=== PATIENT | male | born 1970 | race African-American/Black ===

== ENCOUNTER 2017-05-14 03:47 | Emergency (ER) | payer MEDICAID ==
[~2017-05-14 03:47] MED LIST: ACET-2267 PO; AMLO10TA2 PO; AMLO10TA4 PO; LISI20TA PO; LORA10CA PO; LORA10TA7 PO; MAG355OR55 PO; MELO15TA14 PO; METO25TA2 PO; METO50TA2 PO; SIMV20TA3 PO; SIMV40TA2 PO; SMT80CT PO
--- OUTSIDE RECORDS SUMMARY | 2017-05-14 03:53 | XMS REPORT | Clinical Summary ---
Author Author [facility] Organization [facility] Address Unknown Phone Unavailable Care Team Providers Care Compensation Advisor Name Role Phone PCP Unavailable Source Comments Some departments are not documenting in the electronic medical record. If you do not see the information that you expected, contact Release of Information in the Health Information Management department at [phone] for further assistance in locating additional records.[facility] Allergies Not on File Current Medications Not on file Active Problems Not on file Social History Tobacco Use Types Packs/Day Years Used Date Never Assessed Sex Assigned at Date Recorded Not on file Last Filed Vital Signs Not on file Plan of Treatment Health Maintenance Due Date Last Done Comments PHYSICAL (COMPREHENSIVE) 1978 EXAM PERTUSSIS VACCINE 1982 TETANUS VACCINE 01/24/1988 INFLUENZA VACCINE 05/21/2017 Results Not on filefrom Last 3 Months
--- OUTSIDE RECORDS SUMMARY | 2017-05-14 03:53 | XMS REPORT ---
Author Author BEULAH BANERJEE Organization [facility] Address [address] [place] [address] Care Team Providers Care Sander And Buffer Name Role Phone BEULAH BANERJEE Unavailable PROBLEMS Type Condition ICD9-CM Code USL36-ZB Code Onset Dates Condition Status SNOMED Code Problem Chronic pain G89.29 Active 97281606 Problem History of high cholesterol Z86.39 Active 711938672 Problem Right sided weakness M62.81 Active 026135929 Problem Routine health maintenance Z00.00 Active 414958326 Problem Tobacco abuse counseling Z71.6 Active 811579754 Problem Hypertension I10 Active 71799391 Problem History of aneurysm Z86.79 Active 135093461 Problem Tobacco abuse Z72.0 Active [id number] ALLERGIES Unknown Allergies SOCIAL HISTORY No smoking Hx information available PLAN OF CARE VITAL SIGNS MEDICATIONS Unknown Medications RESULTS No Results PROCEDURES No Known procedures IMMUNIZATIONS No Known Immunizations
--- OUTSIDE RECORDS SUMMARY | 2017-05-14 03:54 | XMS REPORT ---
Author Author BEULAH BANERJEE Organization [employer] Address Unknown Phone Unavailable Care Team Providers Care Agent Spa Desk Name Role Phone BEULAH BANERJEE CP Unavailable Allergies, Adverse Reactions, Alerts Substance Reaction Event Type Xanax Violated Narcotics Contract Drug Allergy Hydrocodone Violated narcotics Contract Non Drug Allergy Wellbutrin Sr 150 Mg Tablet Extended Release 'felt funny' Non Drug Allergy Problems Problem Type Condition Code Onset Dates Condition Status Problem Chronic pain G89.29 Active Problem Tobacco abuse counseling Z71.6 Active Problem Hypertension I10 Active Problem Anxiety F41.9 Active Problem Seasonal allergic rhinitis due to pollen J30.1 Active Problem Gastroesophageal reflux disease without esophagitis K21.9 Active Problem History of aneurysm Z86.79 Active Problem Tobacco abuse Z72.0 Active Problem Right sided weakness M62.81 Active Problem Routine health maintenance Z00.00 Active Assessment History of aneurysm Z86.79 Active Assessment Seasonal allergic rhinitis due to pollen J30.1 Active Assessment Chronic pain G89.29 Active Assessment History of high cholesterol Z86.39 Active Assessment Anxiety F41.9 Active Assessment Hypertension I10 Active Assessment Gastroesophageal reflux disease without esophagitis K21.9 Active Problem History of high cholesterol Z86.39 Active Medications Medication Code System Code Instructions Start Date End Date Status Dosage Omeprazole Magnesium [facility] [address]12 20 mg Orally Once a day 2 tablets buspirone NDC 0 15 mg by oral route 2 times a day February 07, 2013 Sep 28, 2016 1 tablet by Oral route 2 times per day Loratadine [facility] [address]-87 10 mg Orally Once a day [address] [facility] [address]-67 20 mg Orally Once a day Aug 14, 2014 1 tablet by Oral route 1 time per day Mobic [facility] [address]-22 7.5 MG Orally 2 times a day Aug 14, 2014 take 1 Tablet by Oral route 2 times per day Hydrocodone-Acetaminophen [facility] [address]-76 5-325 MG Orally every 6 hrs 1 tablet as needed Norvasc [facility] [address]-84 10 mg Orally 1 TAB orally once a day Aug 14, 2014 1 tablet by Oral route 1 time per day Lamictal [facility] [address]-75 100 MG Orally 2 times a day May 02, 2013 1 tablet by Oral route 2 times per day Pregabalin [facility] [address]-77 25 MG Orally Three times a day 2 capsules Metoprolol Succinate ER [facility] [address]-55 50 mg Orally Once a day [address] [facility] [address]-51 600 MG Orally Three times a day [address] [facility] [address]-57 20 Orally Three times a day 2 capsules Procedures Procedure Coding System Code Date Office Visit, Est Pt., Level 3 CPT-4 76754 Jun 30, 2016 Vital Signs Date/Time: Jun 30, 2016 Cardiac Monitoring Heart Rate 76 bpm Weight 155.7 lbs Height 64 in BMI 26.72 Index Blood Pressure Diastolic 100 mmHg Blood Pressure Systolic 138 mmHg Results No Known Results Summary Purpose [employer] Submission
--- OUTSIDE RECORDS SUMMARY | 2017-05-14 03:54 | XMS REPORT ---
Author Author BEULAH BANERJEE Organization [employer] Address Unknown Phone Unavailable Care Team Providers Care Friend Of The Court Name Role Phone BEULAH BANERJEE CP Unavailable Allergies No Known Allergies Problems Problem Type Condition Code Onset Dates Condition Status Problem Chronic pain G89.29 Active Problem Tobacco abuse counseling Z71.6 Active Problem Hypertension I10 Active Problem History of high cholesterol Z86.39 Active Problem Anxiety F41.9 Active Problem Seasonal allergic rhinitis due to pollen J30.1 Active Problem Gastroesophageal reflux disease without esophagitis K21.9 Active Problem History of aneurysm Z86.79 Active Problem Tobacco abuse Z72.0 Active Problem Right sided weakness M62.81 Active Problem Routine health maintenance Z00.00 Active Medications No Known Medications Results No Known Results Summary Purpose [employer] Submission
--- OUTSIDE RECORDS SUMMARY | 2017-05-14 03:55 | XMS REPORT | Continuity of Care Document ---
Author Author [facility] Address Unknown Phone Unavailable Allergies Active Description Code Type Severity Reaction Onset Reported/Identified Relationship to Patient Clinical Status Yes No Known Drug Allergies [id number] Drug Allergy Unknown N/ A 10/06/2010 Yes Hydrocodone Drug Allergy N/A N/A 05/30/2012 Yes Xanax Drug Allergy N/A N/A 05/30/2012 Yes Hydrocodone Drug Allergy 05/30/2012 Yes Xanax Drug Allergy 05/30/2012 Yes Wellbutrin SR 150 mg tablet extended release Drug Allergy N/A N/A 08/14/2014 Medications Problems Date Dx Coded Attending Type Code Diagnosis Diagnosed By 10/08/2010 Ot 272.4 10/08/2010 Ot 294.8 10/08/2010 Ot 305.1 10/08/2010 Ot 401.9 10/08/2010 Ot 438.0 10/08/2010 Ot 438.81 10/08/2010 Ot 438.89 10/08/2010 Ot 781.2 10/08/2010 Ot 787.3 10/08/2010 Ot 799.23 10/08/2010 Ot V57.1 10/08/2010 Ot V57.21 10/08/2010 Ot V57.3 11/05/2010 JODI CARTER DO 272.4 Other And Unspecified Hyperlipidemia 11/05/2010 JODI CARTER DO 305.1 NONDEPENDENT TOBACCO USE DISORDER 11/05/2010 JODI CARTER DO 401.9 UNSPECIFIED ESSENTIAL HYPERTENSION 11/05/2010 JODI CARTER DO 431 INTRACEREBRAL HEMORRHAGE 11/05/2010 JODI CARTER DO 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 11/05/2010 JODI CARTER DO 729.5 Pain In Limb 11/05/2010 JODI CARTER DO 780.52 INSOMNIA UNSPECIFIED 11/05/2010 KURT RUBI APRN 272.4 Other And Unspecified Hyperlipidemia 11/05/2010 KURT RUBI APRN 305.1 NONDEPENDENT TOBACCO USE DISORDER 11/05/2010 KURT RUBI APRN 401.9 UNSPECIFIED ESSENTIAL HYPERTENSION 11/05/2010 KURT RUBI APRN 431 INTRACEREBRAL HEMORRHAGE 11/05/2010 KURT RUBI APRN 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 11/05/2010 KURT RUBI APRN 729.5 Pain In Limb 11/05/2010 KURT RUBI APRN 780.52 INSOMNIA UNSPECIFIED 11/05/2010 272.4 Other And Unspecified Hyperlipidemia 11/05/2010 305.1 NONDEPENDENT TOBACCO USE DISORDER 11/05/2010 401.9 UNSPECIFIED ESSENTIAL HYPERTENSION 11/05/2010 431 INTRACEREBRAL HEMORRHAGE 11/05/2010 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 11/05/2010 729.5 Pain In Limb 11/05/2010 780.52 INSOMNIA UNSPECIFIED 11/05/2010 CARTER DO, JODI K 272.4 Other And Unspecified Hyperlipidemia 11/05/2010 CARTER DO, JODI K 305.1 NONDEPENDENT TOBACCO USE DISORDER 11/05/2010 CARTER DO, JODI K 401.9 UNSPECIFIED ESSENTIAL HYPERTENSION 11/05/2010 CARTER DO, JODI K 431 INTRACEREBRAL HEMORRHAGE 11/05/2010 CARTER DO, JODI K 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 11/05/2010 CARTER DO, JODI K 729.5 Pain In Limb 11/05/2010 CARTER DO, JODI K 780.52 INSOMNIA UNSPECIFIED 11/05/2010 CARTER DO, JODI K 272.4 Other And Unspecified Hyperlipidemia 11/05/2010 CARTER DO, JODI K 305.1 NONDEPENDENT TOBACCO USE DISORDER 11/05/2010 CARTER DO, JODI K 401.9 UNSPECIFIED ESSENTIAL HYPERTENSION 11/05/2010 CARTER DO, JODI K 431 INTRACEREBRAL HEMORRHAGE 11/05/2010 CARTER DO, JODI K 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 11/05/2010 CARTER DO, JODI K 729.5 Pain In Limb 11/05/2010 CARTER DO, JODI K 780.52 INSOMNIA UNSPECIFIED 11/05/2010 SRAVANI ACOSTA DO F 272.4 Other And Unspecified Hyperlipidemia 11/05/2010 SRAVANI ACOSTA DO F 305.1 NONDEPENDENT TOBACCO USE DISORDER 11/05/2010 SRAVANI ACOSTA DO F 401.9 UNSPECIFIED ESSENTIAL HYPERTENSION 11/05/2010 SRAVANI ACOSTA DO F 431 INTRACEREBRAL HEMORRHAGE 11/05/2010 SRAVANI ACOSTA DO F 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 11/05/2010 SRAVANI ACOSTA DO F 729.5 Pain In Limb 11/05/2010 SRAVANI ACOSTA DO F 780.52 INSOMNIA UNSPECIFIED 11/05/2010 CARTER DO, JODI K 272.4 Other And Unspecified Hyperlipidemia 11/05/2010 CARTER DO, JODI K 305.1 NONDEPENDENT TOBACCO USE DISORDER 11/05/2010 CARTER DO, JODI K 401.9 UNSPECIFIED ESSENTIAL HYPERTENSION 11/05/2010 CARTER DO, JODI K 431 INTRACEREBRAL HEMORRHAGE 11/05/2010 CARTER DO, JODI K 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 11/05/2010 CARTER DO, JODI K 729.5 Pain In Limb 11/05/2010 CARTER DO, JODI K 780.52 INSOMNIA UNSPECIFIED 12/26/2010 Ot 438.0 12/26/2010 Ot 438.89 12/26/2010 Ot V57.3 01/13/2011 CARTER DO, JODI K 719.45 Hip Pain 01/13/2011 CARTER DO, JODI K 780.50 Sleep Disturbance, Unspecified 01/13/2011 CARTER DO, JODI K 784.0 Headache 01/13/2011 KURT RUBI APRN 719.45 Hip Pain 01/13/2011 KURT RUBI APRN 780.50 Sleep Disturbance, Unspecified 01/13/2011 KURT RUBI APRN 784.0 Headache 01/13/2011 719.45 Hip Pain 01/13/2011 780.50 Sleep Disturbance, Unspecified 01/13/2011 784.0 Headache 01/13/2011 ACRTER DO, JODI K 719.45 Hip Pain 01/13/2011 CARTER DO, JODI K 780.50 Sleep Disturbance, Unspecified 01/13/2011 CARTER DO, JODI K 784.0 Headache 01/13/2011 CARTER DO, JODI K 719.45 Hip Pain 01/13/2011 CARTER DO, JODI K 780.50 Sleep Disturbance, Unspecified 01/13/2011 CARTER DO, JODI K 784.0 Headache 01/13/2011 WERDER DO, SRAVANI F 719.45 Hip Pain 01/13/2011 WERDER DO, SRAVANI F 780.50 Sleep Disturbance, Unspecified 01/13/2011 WERDER DO, SRAVANI F 784.0 Headache 01/13/2011 CARTER DO, JODI K 719.45 Hip Pain 01/13/2011 CARTER DO, JODI K 780.50 Sleep Disturbance, Unspecified 01/13/2011 CARTER DO, JODI K 784.0 Headache 01/28/2011 CARTER DO, JODI K 720.2 Sacroiliitis Not Elsewhere Classified 01/28/2011 CARTER DO, JODI K 726.5 Enthesopathy Of Hip Region 01/28/2011 CARTER DO, JODI K 728.85 Spasm Of Muscle 01/28/2011 CARTER DO, JODI K 736.81 UNEQUAL LEG LENGTH (ACQUIRED) 01/28/2011 KURT RUBI APRN 720.2 Sacroiliitis Not Elsewhere Classified 01/28/2011 KURT RUBI APRN 726.5 Enthesopathy Of Hip Region 01/28/2011 KURT RUBI APRN 728.85 Spasm Of Muscle 01/28/2011 KURT RUBI APRN 736.81 UNEQUAL LEG LENGTH (ACQUIRED) 01/28/2011 720.2 Sacroiliitis Not Elsewhere Classified 01/28/2011 726.5 Enthesopathy Of Hip Region 01/28/2011 728.85 Spasm Of Muscle 01/28/2011 736.81 UNEQUAL LEG LENGTH (ACQUIRED) 01/28/2011 CARTER DO, JODI K 720.2 Sacroiliitis Not Elsewhere Classified 01/28/2011 CARTER DO, JODI K 726.5 Enthesopathy Of Hip Region 01/28/2011 CARTER DO, JODI K 728.85 Spasm Of Muscle 01/28/2011 CARTER DO, JODI K 736.81 UNEQUAL LEG LENGTH (ACQUIRED) 01/28/2011 CARTER DO, JODI K 720.2 Sacroiliitis Not Elsewhere Classified 01/28/2011 CARTER DO, JODI K 726.5 Enthesopathy Of Hip Region 01/28/2011 CARTER DO, JODI K 728.85 Spasm Of Muscle 01/28/2011 CARTER DO, JODI K 736.81 UNEQUAL LEG LENGTH (ACQUIRED) 01/28/2011 KARLA DOSRAVANI F 720.2 Sacroiliitis Not Elsewhere Classified 01/28/2011 SRAVANI ACOSTA DO F 726.5 Enthesopathy Of Hip Region 01/28/2011 KARLA DOSRAVANI F 728.85 Spasm Of Muscle 01/28/2011 TIFFANIEDER DOSRAVANI F 736.81 UNEQUAL LEG LENGTH (ACQUIRED) 01/28/2011 CARTER DO JODI K 720.2 Sacroiliitis Not Elsewhere Classified 01/28/2011 CARTER DO JODI K 726.5 Enthesopathy Of Hip Region 01/28/2011 CARTER DO, JODI K 728.85 Spasm Of Muscle 01/28/2011 CARTER DO, JODI K 736.81 UNEQUAL LEG LENGTH (ACQUIRED) 03/03/2011 CRATER DO JODI K 053.9 Herpes Zoster Without Complication 03/03/2011 CARTER DO JODI K 276.51 Dehydration 03/03/2011 CARTER DO JODI K 584.9 Acute Kidney Failure Unspecified 03/03/2011 KURT RUBI APRN 053.9 Herpes Zoster Without Complication 03/03/2011 KURT RUBI APRN 276.51 Dehydration 03/03/2011 UKRT RUBI APRN 584.9 Acute Kidney Failure Unspecified 03/03/2011 053.9 Herpes Zoster Without Complication 03/03/2011 276.51 Dehydration 03/03/2011 584.9 Acute Kidney Failure Unspecified 03/03/2011 CARTER DO JODI K 053.9 Herpes Zoster Without Complication 03/03/2011 CARTER DO JODI K 276.51 Dehydration 03/03/2011 CARTER DO, JODI K 584.9 Acute Kidney Failure Unspecified 03/03/2011 CARTER DO JODI K 053.9 Herpes Zoster Without Complication 03/03/2011 CARTER DO JODI K 276.51 Dehydration 03/03/2011 CARTER DO JODI K 584.9 Acute Kidney Failure Unspecified 03/03/2011 SRAVANI ACOSTA DO 053.9 Herpes Zoster Without Complication 03/03/2011 SRAVANI ACOSTA DO F 276.51 Dehydration 03/03/2011 SRAVANI ACOSTA DO 584.9 Acute Kidney Failure Unspecified 03/03/2011 CARTER DO, JODI K 053.9 Herpes Zoster Without Complication 03/03/2011 CARTER DO, JODI K 276.51 Dehydration 03/03/2011 CARTER DO, JODI K 584.9 Acute Kidney Failure Unspecified 04/06/2011 CARTER DO, JODI K 606.9 MALE INFERTILITY UNSPECIFIED 04/06/2011 CARTER DO, JODI K 698.9 Unspecified Pruritic Disorder 04/06/2011 KURT RUBI APRN 606.9 MALE INFERTILITY UNSPECIFIED 04/06/2011 KURT RUBI APRN 698.9 Unspecified Pruritic Disorder 04/06/2011 606.9 MALE INFERTILITY UNSPECIFIED 04/06/2011 698.9 Unspecified Pruritic Disorder 04/06/2011 CARTER DO, JODI K 606.9 MALE INFERTILITY UNSPECIFIED 04/06/2011 CARTER DO, JODI K 698.9 Unspecified Pruritic Disorder 04/06/2011 CARTER DO, JODI K 606.9 MALE INFERTILITY UNSPECIFIED 04/06/2011 CARTER DO, JODI K 698.9 Unspecified Pruritic Disorder 04/06/2011 WERSRAVANI FLETCHER DO F 606.9 MALE INFERTILITY UNSPECIFIED 04/06/2011 WERDER DOANDREAEN F 698.9 Unspecified Pruritic Disorder 04/06/2011 CARTER DO, JODI K 606.9 MALE INFERTILITY UNSPECIFIED 04/06/2011 CARTER DO, JODI K 698.9 Unspecified Pruritic Disorder 04/22/2011 CARTER DO, JODI K 724.2 Back Pain, Lower 04/22/2011 KURT RUBI APRN 724.2 Back Pain, Lower 04/22/2011 724.2 Back Pain, Lower 04/22/2011 CARTER DO, JODI K 724.2 Back Pain, Lower 04/22/2011 CARTER DO, JODI K 724.2 Back Pain, Lower 04/22/2011 ANDREA ACOSTA DOEN F 724.2 Back Pain, Lower 04/22/2011 CARTER DO, JODI K 724.2 Back Pain, Lower 07/17/2011 CARTER DO, JODI K 311 DEPRESSIVE DISORDER NOS 07/17/2011 KURT RUBI APRN 311 DEPRESSIVE DISORDER NOS 07/17/2011 311 DEPRESSIVE DISORDER NOS 07/17/2011 JODI CARTER DO K 311 DEPRESSIVE DISORDER NOS 07/17/2011 JODI CARTER DO K 311 DEPRESSIVE DISORDER NOS 07/17/2011 SRAVANI ACOSTA DO 311 DEPRESSIVE DISORDER NOS 07/17/2011 JODI CARTER DO K 311 DEPRESSIVE DISORDER NOS 10/05/2011 ANTHONY CARTER DOA K 300.02 AN GEN ANXIETY 10/05/2011 KURT RUBI APRN 300.02 AN GEN ANXIETY 10/05/2011 300.02 AN GEN ANXIETY 10/05/2011 ANTHONY CARTER DOA K 300.02 AN GEN ANXIETY 10/05/2011 ANTHONY CARTER DOA K 300.02 AN GEN ANXIETY 10/05/2011 SRAVANI ACOSTA DO 300.02 AN GEN ANXIETY 10/05/2011 CARTER ANTHONY ZHOUA K 300.02 AN GEN ANXIETY 11/05/2011 ANTHONY CARTER DOA K 296.89 MO BIPOLAR II 11/05/2011 KURT RUBI APRN 296.89 MO BIPOLAR II 11/05/2011 296.89 MO BIPOLAR II 11/05/2011 ANTHONY CARTER DOA K 296.89 MO BIPOLAR II 11/05/2011 ANTHONY CARTER DOA K 296.89 MO BIPOLAR II 11/05/2011 SRAVANI ACOSTA DO 296.89 MO BIPOLAR II 11/05/2011 ANTHONY CARTER DOA K 296.89 MO BIPOLAR II 05/30/2012 ANTHONY CARTER DOA K 272.4 OTHER AND UNSPECIFIED HYPERLIPIDEMIA 05/30/2012 ANTHONY CARTER DOA K 300.00 ANXIETY STATE UNSPECIFIED 05/30/2012 JODI CARTER DO K 338.29 OTHER CHRONIC PAIN 05/30/2012 JODI CARTER DO K 530.81 ESOPHAGEAL REFLUX 05/30/2012 ANTHONY CARTER DOA K V58.69 LONG-TERM (CURRENT) USE OF OTHER MEDICATIONS 05/30/2012 KURT RUBI APRN 272.4 OTHER AND UNSPECIFIED HYPERLIPIDEMIA 05/30/2012 KURT RUBI APRN 300.00 ANXIETY STATE UNSPECIFIED 05/30/2012 KURT RUBI APRN 338.29 OTHER CHRONIC PAIN 05/30/2012 KURT RUBI APRN 530.81 ESOPHAGEAL REFLUX 05/30/2012 KURT RUBI APRN V58.69 LONG-TERM (CURRENT) USE OF OTHER MEDICATIONS 05/30/2012 272.4 OTHER AND UNSPECIFIED HYPERLIPIDEMIA 05/30/2012 300.00 ANXIETY STATE UNSPECIFIED 05/30/2012 338.29 OTHER CHRONIC PAIN 05/30/2012 530.81 ESOPHAGEAL REFLUX 05/30/2012 V58.69 LONG-TERM (CURRENT) USE OF OTHER MEDICATIONS 05/30/2012 CARTER DO, JODI K 272.4 OTHER AND UNSPECIFIED HYPERLIPIDEMIA 05/30/2012 CARTER DO, JODI K 300.00 ANXIETY STATE UNSPECIFIED 05/30/2012 CARTER DO, JODI K 338.29 OTHER CHRONIC PAIN 05/30/2012 CARTER DO, JODI K 530.81 ESOPHAGEAL REFLUX 05/30/2012 CARTER DO, JODI K V58.69 LONG-TERM (CURRENT) USE OF OTHER MEDICATIONS 05/30/2012 CARTER DO, JODI K 272.4 OTHER AND UNSPECIFIED HYPERLIPIDEMIA 05/30/2012 CARTER DO, JODI K 300.00 ANXIETY STATE UNSPECIFIED 05/30/2012 CARTER DO, JODI K 338.29 OTHER CHRONIC PAIN 05/30/2012 CARTER DO, JODI K 530.81 ESOPHAGEAL REFLUX 05/30/2012 CARTER DO, JODI K V58.69 LONG-TERM (CURRENT) USE OF OTHER MEDICATIONS 05/30/2012 WERDER DO, SRAVANI F 272.4 OTHER AND UNSPECIFIED HYPERLIPIDEMIA 05/30/2012 WERDER DO, SRAVANI F 300.00 ANXIETY STATE UNSPECIFIED 05/30/2012 WERDER DO, SRAVANI F 338.29 OTHER CHRONIC PAIN 05/30/2012 WERDER DO, SRAVANI F 530.81 ESOPHAGEAL REFLUX 05/30/2012 WERDER DO, SRAVANI F V58.69 LONG-TERM (CURRENT) USE OF OTHER MEDICATIONS 05/30/2012 CARTER DO, JODI K 272.4 OTHER AND UNSPECIFIED HYPERLIPIDEMIA 05/30/2012 CARTER DO, JODI K 300.00 ANXIETY STATE UNSPECIFIED 05/30/2012 CARTER DO, JODI K 338.29 OTHER CHRONIC PAIN 05/30/2012 CARTER DO, JODI K 530.81 ESOPHAGEAL REFLUX 05/30/2012 CARTER DO, JODI K V58.69 LONG-TERM (CURRENT) USE OF OTHER MEDICATIONS 08/05/2012 CARTER DO, JODI K 466.0 Bronchitis, Acute 08/05/2012 KURT RUBI APRN 466.0 Bronchitis, Acute 08/05/2012 466.0 Bronchitis, Acute 08/05/2012 CARTER DO, JODI K 466.0 Bronchitis, Acute 08/05/2012 CARTER DO, JODI K 466.0 Bronchitis, Acute 08/05/2012 SRAVANI ACOSTA DO 466.0 BRONCHITIS, ACUTE 08/05/2012 CARTER DO, JODI K 466.0 Bronchitis, Acute 09/06/2012 CARTER DO, JODI K 356.9 UNSPECIFIED IDIOPATHIC PERIPHERAL NEUROPATHY 09/06/2012 KURT RUBI APRN 356.9 UNSPECIFIED IDIOPATHIC PERIPHERAL NEUROPATHY 09/06/2012 356.9 UNSPECIFIED IDIOPATHIC PERIPHERAL NEUROPATHY 09/06/2012 CARTER DO, JODI K 356.9 UNSPECIFIED IDIOPATHIC PERIPHERAL NEUROPATHY 09/06/2012 CARTER DO, JODI K 356.9 UNSPECIFIED IDIOPATHIC PERIPHERAL NEUROPATHY 09/06/2012 CARTER DO, JODI K 356.9 UNSPECIFIED IDIOPATHIC PERIPHERAL NEUROPATHY 08/14/2014 CARTER DO, JODI K 461.9 SINUSITIS ACUTE 10/21/2015 CYNTHIA ZAMUDIO MD Ot F17.210 10/21/2015 CYNTHIA ZAMUDIO MD Ot F19.90 10/21/2015 CYNTHIA ZAMUDIO MD Ot R40.2140 10/21/2015 CYNTHIA ZAMUDIO MD Ot T50.904A Procedures Code Description [place] [address] PSYCH PHARM MGMT 08/20/2012 Results Encounters ACCT No. Visit Date/Time Discharge Status Pt. Type Provider Facility Loc./Unit Complaint [id number] 08/14/2014 14:19:00 08/14/2014 23: 59:59 CLS Outpatient CARTER DO JODI Terrence [id number] 11/24/2013 10:27:00 11/24/2013 23: 59:59 CLS Outpatient CARTER DO JODI K [id number] 03/13/2013 14:09:00 03/13/2013 23: 59:59 CLS Outpatient CARTER DO JODI K [id number] 09/06/2012 08:46:00 09/06/2012 23: 59:59 CLS Outpatient CARTER DO JODI K [id number] 08/19/2012 00:00:00 08/19/2012 23: 59:59 CLS Outpatient KURT RUBI APRN [id number] 06/23/2012 09:56:00 06/23/2012 23: 59:59 CLS Outpatient SRAVANI ACOSTA DO [id number] 02/07/2013 12:55:00 Document Registration [id number] 10/20/2015 15:55:00 ACT Inpatient CYNTHIA ZAMUDIO MD [facility] ICU [id number] 12/15/2010 14:02:00 Document Registration [id number] 10/06/2010 15:50:00 Document Registration
== END 2017-05-14 04:30 | disposition left against medical advice (07) ==
LOC: EDUNIT# 03:47 → ER 03:50
DX: R51 Headache (principal)

== ENCOUNTER 2017-12-31 10:09 | Emergency (ER) | payer OTHER, MEDICAID ==
[~2017-12-31] VITALS: Ht 165.1 cm; Wt 90.7 kg
[~2017-12-31 10:09] MED LIST changes: +METO50TA15 PO; -METO50TA2 PO
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
[2017-12-31] MEDS ORDERED: IBUPROFEN 800 MG (MOTRIN) TAB PO ONE (11:00)
[2017-12-31] MEDS ORDERED: ALPRAZolam 0.5 MG (XANAX) TAB PO SCH (11:00)
[2017-12-31 11:26] LABS: BASOPHILS % (AUTO) 0 % (0-10); EOSINOPHILS % (AUTO) 0 % (0-10); HEMATOCRIT 39 % (40-54); HEMOGLOBIN 13.9 G/DL (13.3-17.7); LYMPHOCYTES # (AUTO) 1.9 X 10^3 (1.0-4.0); LYMPHOCYTES % (AUTO) 19 % (12-44); MEAN CORPUSCULAR HEMOGLOBIN 29 PG (25-34); MEAN CORPUSCULAR HGB CONC 35 G/DL (32-36); MEAN CORPUSCULAR VOLUME 82 FL (80-99); MONOCYTES # (AUTO) 0.7 X 10^3 (0.0-1.0); MONOCYTES % (AUTO) 7 % (0-12); NEUTROPHILS # (AUTO) 7.4 X 10^3 (1.8-7.8); NEUTROPHILS % (AUTO) 74 % (42-75); PLATELET COUNT 225 10^3/uL (130-400); RED CELL DISTRIBUTION WIDTH 12.8 % (10.0-14.5)
--- NOTE | 2017-12-31 11:31 | Diagnostic Imaging Report ---
Indication: Headache. Time of exam: 11:41 AM Correlation is made with prior study from 10/20/2015. The heart size is normal. The pulmonary vascularity is unremarkable. The lungs are clear. No infiltrate, effusion or pneumothorax is detected. Impression: No acute cardiopulmonary process is detected. Dictated by: Dictated on workstation # [id number]
[2017-12-31 11:46] LABS: ALANINE AMINOTRANSFERASE 19 U/L (0-55); ALBUMIN 4.5 GM/DL (3.2-4.5); ALKALINE PHOSPHATASE 63 U/L (40-136); BILIRUBIN,TOTAL 1.2 MG/DL (0.1-1.0); BUN/CREATININE RATIO 14; CALCIUM 9.5 MG/DL (8.5-10.1); CARBON DIOXIDE 20 MMOL/L (21-32); CHLORIDE 110 MMOL/L (98-107); CREATINE KINASE 280 U/L (30-200); CREATININE SERUM 0.86 MG/DL (0.60-1.30); GFR ESTIMATED > 60; GLUCOSE 97 MG/DL (70-105); POTASSIUM 3.7 MMOL/L (3.6-5.0); SODIUM 140 MMOL/L (135-145); TOTAL PROTEIN 7.5 GM/DL (6.4-8.2)
--- NOTE | 2017-12-31 11:49 | Diagnostic Imaging Report ---
PROCEDURE: CT head without contrast. TECHNIQUE: Multiple contiguous axial images were obtained through the brain without the use of intravenous contrast. INDICATION: Head injury with headache. COMPARISON: Comparison is made to study of 10/20/2015. FINDINGS: Ventricles and sulci are mildly prominent but unchanged. Previously treated suprasellar aneurysm is noted. There is no evidence of hemorrhage. There is low-density within the deep white matter of the right frontal lobe which is stable and likely represents gliosis or encephalomalacia. Calvarium is intact and visualized paranasal sinuses are clear. IMPRESSION: Stable CT of the head without acute intracranial abnormality detected. Dictated by: Dictated on workstation # [id number]
[2017-12-31 11:53] LABS: MYOGLOBIN SERUM 30.6 NG/ML (10.0-92.0)
[2017-12-31 11:58] VITALS: BP 139/105
--- OUTSIDE RECORDS SUMMARY | 2018-01-02 07:19 | XMS REPORT | Clinical Summary ---
Author Author [facility] Organization [facility] Address Unknown Phone Unavailable Care Team Providers Care Shade Maker Name Role Phone Joe Fabian MD PCP Source Comments Some departments are not documenting in the electronic medical record. If you do not see the information that you expected, contact Release of Information in the Health Information Management department at [phone] for further assistance in locating additional records.[facility] Allergies Not on File Current Medications Not on file Active Problems Not on file Social History Tobacco Use Types Packs/Day Years Used Date Never Assessed Sex Assigned at Date Recorded Not on file Last Filed Vital Signs Not on file Plan of Treatment Health Maintenance Due Date Last Done Comments PHYSICAL (COMPREHENSIVE) 1978 EXAM PERTUSSIS VACCINE 1982 HIV SCREENING 1986 TETANUS VACCINE 01/24/1988 INFLUENZA VACCINE 06/20/2018 Results Not on filefrom Last 3 Months
--- OUTSIDE RECORDS SUMMARY | 2018-01-02 07:20 | XMS REPORT ---
Author Author CHRISS BEULAH Organization [facility] Address [address] [place] [address] Care Team Providers Care Rope Laying Machine Operator Name Role Phone BANERJEEBEULAH Powell Unavailable PROBLEMS Type Condition ICD9-CM Code [id number] Code Onset Dates Condition Status SNOMED Code Problem Hypertension I10 Active 67241335 Problem Chronic pain G89.29 Active 89206236 Problem Tobacco abuse counseling Z71.6 Active 196099898 Problem Tobacco abuse Z72.0 Active 84580207 Problem Elevated LDL cholesterol level E78.00 Active 645795924 Problem Seasonal allergic rhinitis due to pollen J30.1 Active 43314500 Problem Right sided weakness M62.81 Active 137123024 Problem History of aneurysm Z86.79 Active 703502438 Problem Gastroesophageal reflux disease without esophagitis K21.9 Active 203721116 Problem Anxiety F41.9 Active 01998638 ALLERGIES No Information ENCOUNTERS Encounter Location Date Diagnosis [facility] [id number] [place] [address] Nov, Hypertension I10 ; Tobacco abuse Z72.0 ; Tobacco abuse counseling Z71.6 ; Elevated LDL cholesterol level E78.00 ; Gastroesophageal reflux disease without esophagitis K21.9 ; Anxiety F41.9 ; Chronic pain G89.29 and Right sided weakness M62.81 [facility] [id number] [place] [address] 164[address] Oct, Hypertension I10 [facility] [id number] [place] [address] Aug, [facility] [id number] [place] [address]83- 5564 Jun, Hypertension I10 ; History of high cholesterol Z86.39 ; Gastroesophageal reflux disease without esophagitis K21.9 ; Anxiety F41.9 ; Tobacco abuse Z72.0 ; Tobacco abuse counseling Z71.6 and Chronic pain G89.29 [place] [id number] [place] [address] 9[address] May, History of aneurysm Z86.79 ; Hypertension I10 and Seasonal allergic rhinitis due to pollen J30.1 [place] [id number] [place] [address]- 8945 Mar, Seasonal allergic rhinitis due to pollen J30.1 ; History of aneurysm Z86.79 ; Hypertension I10 and Chronic pain G89.29 [place] [id number] [place] [address]- 69[address] Feb, [place] [id number] [place] [address]- 8789 Nov, [place] [id number] [place] [address]- 4896 Sep, [place] [id number] [place] [address]- 3016 Sep, [place] [id number] [place] [address] 01074- 8498 Jun, [place] [id number] [place] [address] 9[address]37- 8115 Jun, Hypertension I10 ; History of high cholesterol Z86.39 ; Chronic pain G89.29 ; Gastroesophageal reflux disease without esophagitis K21.9 ; Anxiety F41.9 ; Seasonal allergic rhinitis due to pollen J30.1 and History of aneurysm Z86.79 [place] [address] [address] May, [place] [id number] [place] [address]- 34[address] Feb, [place] [id number] [place] [address] 90788- 3570 Nov, History of aneurysm Z86.79 ; Hypertension I10 ; Chronic pain G89.29 and Right sided weakness M62.81 [facility] [address] [address] 21 Nov, 2015 Routine health maintenance Z00.00 [facility] [id number] [address] 15 Nov, 2015 Routine health maintenance Z00.00 ; History of aneurysm Z86.79 ; Tobacco abuse Z72.0 ; Tobacco abuse counseling Z71.6 ; Hypertension I10 ; Chronic pain G89.29 ; History of high cholesterol Z86.39 ; GERD ( gastroesophageal reflux disease) K21.9 and Allergic rhinitis J30.9 [facility] [address] [address] 14 Dec, 2014 [facility] [address] [address] Dec, [facility] [id number] [address] Jul, [facility] [address] [address] Jul, [facility] [address] [address] 42[address] May, [facility] [address] [place] [address] May, [facility] [address] [place] [address] Mar, [facility] [address] [place] [address] 8489 Mar, [facility] [address] [address] Nov, [facility] [address] [address] Nov, [facility] [address] [address] Nov, [facility] [id number] [address] Nov, [facility] [address] [id number] [place] [address] Jun, [facility] [address] [id number] [place] [address] 56[address] Jun, [facility] [address] [id number] [place] [address] 3411 May, [facility] [address] [id number] [place] [address]- 1420 May, [facility] [address] [id number] [place] [address]- 5055 Apr, [facility] [address] [id number] [place] [address]- 2665 Apr, [facility] [address] [id number] [place] [address]- 7210 Apr, [facility] [address] [id number] [place] [address]- 3624 Feb, [facility] [address] [id number] [place] [address]- 0387 Feb, [facility] [address] [id number] [place] [address]- 3164 January, [facility] [address] [id number] [place] [address]- 2546 January, [facility] [address] [id number] [place] [address]- 0476 January, [facility] [address] [id number] [place] [address]- 3646 Dec, [facility] [address] [id number] [place] [address]- 2546 Oct, [facility] [address] [id number] [place] [address]- 5769 Sep, [facility] [place] [facility] [address] [id number] [place] [address]- 0552 Sep, [facility] [place] [facility] [address] [id number] [place] [address]- 1486 Aug, [facility] [place] [facility] [address] [id number] [place] [address]- 8045 Aug, [facility] [place] [facility] [address] [id number] [place] [address]- 6829 Jul, [facility] [place] [facility] [address] [id number] [place] [address]- 9126 Jul, [facility] [place] [facility] [address] [id number] [place] [address]- 6463 Jul, [facility] [place] [facility] [address] [id number] [place] [address]- 5124 Jul, [facility] [place] [facility] [address] [id number] [place] [address]- 4733 Jul, [facility] [place] [facility] [address] [id number] [place] [address]- 6748 Jul, [facility] [place] [facility] [address] [id number] [place] [address]- 1187 Jul, [facility] [place] [facility] [address] [id number] [place] [address]- 5603 Jul, [facility] [place] [facility] [address] [id number], [place] [address]- 5388 Jun, [facility] [place] [facility] [address] [id number] [place] [address]- 1493 Jun, [facility] [place] [facility] [address] [id number] [place] [address]- 2220 Jun, [facility] [place] [facility] [address] [id number] [place] [address] Jun, [facility] [place] [facility] [address] [id number] [place] [address]- 2267 May, [facility] [place] [facility] [address] [id number] [place] [address]- 0917 Apr, [facility] [place] [facility] [address] [id number] [place] [address]- 3133 Apr, [facility] [place] [facility] [address] [id number] [place] [address]- 3466 Apr, [facility] [place] [facility] [address] [id number] [place] [address]- 0966 Apr, [facility] [place] [facility] [address] [id number] [place] [address]- 4887 Mar, [facility] [place] [facility] [address] [id number] [place] [address]- 6117 Mar, [facility] [place] [facility] [address] [id number] [place] [address]- 6427 Feb, [facility] [place] [facility] [address] [id number] [place] [address]- 8030 Feb, [facility] [place] [facility] [address] [id number] [place] [address]- 3568 Feb, [facility] [place] [facility] [address] [id number] [place] [address]- 5381 Feb, [facility] [place] [facility] [address] [id number] [place] [address]- 6089 Feb, [facility] [place] [facility] [address] [id number] [place] [address]- 2573 Feb, [facility] [place] [facility] [address] [id number] [place] [address]- 3879 January, [facility] [place] [facility] [address] [id number] [place] [address]- 3041 Nov, [facility] [place] [facility] [address] [id number] [place] [address]- 8752 Oct, [facility] [place] [facility] [address] [facility] [id number], [place] [address]- [address] 16 Oct, 2011 [facility] [address] [facility] [id number], [place] [address]- [address] Sep, [facility] [address] [facility] [id number], [place] [address]- 1273 Aug, [facility] [address] [facility] [id number], [place] [address]- 4615 Jul, [facility] [address] [facility] [id number], [place] [address]- 6696 Jul, [facility] [address] [facility] [id number], [place] [address]- [address] Jun, [facility] [address], [place] [address]- 98[address] Mar, [facility] [address], [place] [address]- 2832 Feb, [facility] [address], [place] [address] January, [facility] [address], [place] [address]- 4692 Nov, [facility] [id number] [address] 16 Oct, 2010 IMMUNIZATIONS No Known Immunizations SOCIAL HISTORY Never Assessed REASON FOR VISIT medication refill PLAN OF CARE VITAL SIGNS MEDICATIONS No Known Medications RESULTS No Results PROCEDURES No Known procedures INSTRUCTIONS MEDICATIONS ADMINISTERED No Known Medications MEDICAL (GENERAL) HISTORY Type Description Date Medical History HTN Medical History chronic back pain Medical History aneurysm Surgical History rt little finger surgery Hospitalization History surgery only
--- OUTSIDE RECORDS SUMMARY | 2018-01-02 07:20 | XMS REPORT ---
Author Author BEULAH BANERJEE Organization [facility] [place] Address [address] [place] [address] Care Team Providers Care Teletype Or Varitype Keyboard Operator Name Role Phone BEULAH BANERJEE Unavailable PROBLEMS Type Condition ICD9-CM Code UVZ99-JE Code Onset Dates Condition Status SNOMED Code Problem Tobacco abuse counseling Z71.6 Active 260222070 Problem History of high cholesterol Z86.39 Active 914313800 Problem Chronic pain G89.29 Active 37561831 Problem Tobacco abuse Z72.0 Active 47826442 Problem Hypertension I10 Active 76971083 Problem Anxiety F41.9 Active 83827827 Problem Gastroesophageal reflux disease without esophagitis K21.9 Active 168823461 Problem Routine health maintenance Z00.00 Active 397139968 Problem History of aneurysm Z86.79 Active 137109952 Problem Seasonal allergic rhinitis due to pollen J30.1 Active 38574767 Problem Right sided weakness M62.81 Active 078394110 ALLERGIES No Information SOCIAL HISTORY Never Assessed PLAN OF CARE VITAL SIGNS MEDICATIONS Unknown Medications RESULTS No Results PROCEDURES No Known procedures IMMUNIZATIONS No Known Immunizations MEDICAL (GENERAL) HISTORY Type Description Date Medical History HTN Medical History chronic back pain Medical History aneurysm Surgical History rt little finger surgery Hospitalization History surgery only
--- OUTSIDE RECORDS SUMMARY | 2018-01-02 07:20 | XMS REPORT ---
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 Name Role Phone BANERJEEBEULAH Powell Unavailable PROBLEMS Type Condition ICD9-CM Code ONH12-EL Code Onset Dates Condition Status SNOMED Code Problem Hypertension I10 Active 35403693 Problem Chronic pain G89.29 Active 32813165 Problem Tobacco abuse counseling Z71.6 Active 397277905 Problem Tobacco abuse Z72.0 Active 99437364 Problem Elevated LDL cholesterol level E78.00 Active 590803024 Problem Seasonal allergic rhinitis due to pollen J30.1 Active 19668637 Problem Right sided weakness M62.81 Active 723642365 Problem History of aneurysm Z86.79 Active 257687673 Problem Gastroesophageal reflux disease without esophagitis K21.9 Active 781666937 Problem Anxiety F41.9 Active 16531197 ALLERGIES No Information ENCOUNTERS Encounter Location Date Diagnosis [facility] [id number] [place] [address] Nov, Hypertension I10 ; Tobacco abuse Z72.0 ; Tobacco abuse counseling Z71.6 ; Elevated LDL cholesterol level E78.00 ; Gastroesophageal reflux disease without esophagitis K21.9 ; Anxiety F41.9 ; Chronic pain G89.29 and Right sided weakness M62.81 [facility] [id number] [place] [address] 41120- 9468 Oct, Hypertension I10 [facility] [id number] [place] [address] 39194- 4957 Aug, [facility] [id number] [place] [address] 17289- 3304 Jun, Hypertension I10 ; History of high cholesterol Z86.39 ; Gastroesophageal reflux disease without esophagitis K21.9 ; Anxiety F41.9 ; Tobacco abuse Z72.0 ; Tobacco abuse counseling Z71.6 and Chronic pain G89.29 [facility] [id number] [place] [address] 84666- 0956 May, History of aneurysm Z86.79 ; Hypertension I10 and Seasonal allergic rhinitis due to pollen J30.1 [facility] [id number] [place] [address]27- 9099 Mar, Seasonal allergic rhinitis due to pollen J30.1 ; History of aneurysm Z86.79 ; Hypertension I10 and Chronic pain G89.29 [facility] [id number] [place] [address] 01625- 8799 Feb, [facility] [id number] [place] [address] 03760- 3957 Nov, [facility] [id number] [place] [address] 70610- 2932 Sep, [facility] [id number] [place] [address] 16748- 2245 Sep, [facility] [id number] [place] [address] 07476- 8650 Jun, [facility] [id number] [place] [address] 01331- 7900 Jun, Hypertension I10 ; History of high cholesterol Z86.39 ; Chronic pain G89.29 ; Gastroesophageal reflux disease without esophagitis K21.9 ; Anxiety F41.9 ; Seasonal allergic rhinitis due to pollen J30.1 and History of aneurysm Z86.79 [facility] [address] [address] 9[address] May, [facility] [id number] [place] [address] 61585- 3189 Feb, [facility] [id number] [place] [address] 34494- 2026 Nov, History of aneurysm Z86.79 ; Hypertension I10 ; Chronic pain G89.29 and Right sided weakness M62.81 [facility] [address] [address] 21 Nov, 2015 Routine health maintenance Z00.00 [facility] [id number] [address] 15 Nov, 2015 Routine health maintenance Z00.00 ; History of aneurysm Z86.79 ; Tobacco abuse Z72.0 ; Tobacco abuse counseling Z71.6 ; Hypertension I10 ; Chronic pain G89.29 ; History of high cholesterol Z86.39 ; GERD ( gastroesophageal reflux disease) K21.9 and Allergic rhinitis J30.9 [facility] [address] [address] 67[address] 14 Dec, 2014 [facility] [address] [address] 55[address] Dec, [facility] [id number] [address] 8365 Jul, [facility] [address] [address] 4[address] Jul, [facility] [address] [address] 8589 May, [facility] [address] [address] 4868 May, [facility] [address] [address] 4128 Mar, [facility] [address] [address] 9321 Mar, [facility] [address] [address] 7072 Nov, [facility] [address] [address] 2553 Nov, [facility] [address] [address] Nov, [facility] [id number] [address] 0600 Nov, [facility] [address] [id number] [place] [address] 5018 Jun, [facility] [address] [id number] [place] [address]- 6986 Jun, [facility] [address] [id number] [place] [address]- 0023 May, [facility] [address] [id number] [place] [address]- 1211 May, [facility] [address] [id number] [place] [address]- 8724 Apr, [facility] [address] [id number] [place] [address]- 7724 Apr, [facility] [address] [id number] [place] [address]- 5222 Apr, [facility] [address] [id number] [place] [address]- 3489 Feb, [facility] [address] [id number] [place] [address]- 8973 Feb, [facility] [address] [id number] [place] [address]- 4754 January, [facility] [address] [id number] [place] [address]- 2546 January, [facility] [address] [id number] [place] [address]- 6446 January, [facility] [address] [id number] [place] [address]- 4726 Dec, [facility] [address] [id number] [place] [address]- 2546 Oct, [facility] [address] [id number] [place] [address]- 4875 Sep, [facility] [place] [facility] [address] [id number] [place] [address]- 4260 Sep, [facility] [place] [facility] [address] [id number] [place] [address]- 5691 Aug, [facility] [place] [facility] [address] [id number] [place] [address]- 0375 Aug, [facility] [place] [facility] [address] [id number] [place] [address]- 9333 Jul, [facility] [place] [facility] [address] [id number] [place] [address]- 2306 Jul, [facility] [place] [facility] [address] [id number] [place] [address]- 3005 Jul, [facility] [place] [facility] [address] [id number] [place] [address]- 7135 Jul, [facility] [place] [facility] [address] [id number] [place] [address]- 1626 Jul, [facility] [place] [facility] [address] [id number] [place] [address]- 1975 Jul, [facility] [place] [facility] [address] [id number] [place] [address]- 5773 Jul, [facility] [place] [facility] [address] [id number] [place] [address]- 5595 Jul, [facility] [place] [facility] [address] [id number], [place] [address]- 4186 Jun, [facility] [place] [facility] [address] [id number] [place] [address]- 7806 Jun, [facility] [place] [facility] [address] [id number] [place] [address]- 2437 Jun, [facility] [place] [facility] [address] [id number] [place] 2616 Jun, [facility] [place] [facility] [address] [id number] [place] [address]- 0529 May, [facility] [place] [facility] [address] [id number] [place] [address]- 0719 Apr, [facility] [place] [facility] [address] [id number] [place] [address]- 9358 Apr, [facility] [place] [facility] [address] [id number] [place] [address]- 9674 Apr, [facility] [place] [facility] [address] [id number] [place] [address]- 1766 Apr, [facility] [place] [facility] [address] [id number] [place] [address]- 4593 Mar, [facility] [place] [facility] [address] [id number] [place] [address]- 5480 Mar, [facility] [place] [facility] [address] [id number] [place] [address]- 8463 Feb, [facility] [place] [facility] [address] [id number] [place] [address]- 3801 Feb, [facility] [place] [facility] [address] [id number] [place] [address]- 4991 Feb, [facility] [place] [facility] [address] [id number] [place] [address]- 6376 Feb, [facility] [place] [facility] [address] [id number] [place] [address]- 5842 Feb, [facility] [place] [facility] [address] [id number] [place] [address]- 3260 Feb, [facility] [place] [facility] [address] [id number] [place] [address]- 6937 January, [facility] [place] [facility] [address] [id number] [place] [address]- 3347 Nov, [facility] [place] [facility] [address] [id number] [place] [address]- 0541 Oct, [facility] [place] [facility] [address] [facility] [id number], [place] [address]- 7306 16 Oct, 2011 [facility] [address] [facility] [id number], [place] [address]- 7421 Sep, [facility] [address] [facility] [id number], [place] [address]- 7696 Aug, [facility] [address] [facility] [id number], [place] [address]- 3708 Jul, [facility] [address] [facility] [id number], [place] [address]- 0712 Jul, [facility] [address] [facility] [id number], [place] [address]- 5278 Jun, [facility] [address] [address]- 9291 Mar, [facility] [address] [address]- 0652 Feb, [facility] [address] [address]- 5375 January, [facility] [address] [address]- 7587 Nov, [facility] [id number] [address]- 0802 16 Oct, 2010 IMMUNIZATIONS No Known Immunizations SOCIAL HISTORY Never Assessed REASON FOR VISIT Refill request PLAN OF CARE VITAL SIGNS MEDICATIONS No Known Medications RESULTS No Results PROCEDURES No Known procedures INSTRUCTIONS MEDICATIONS ADMINISTERED No Known Medications MEDICAL (GENERAL) HISTORY Type Description Date Medical History HTN Medical History chronic back pain Medical History aneurysm Surgical History rt little finger surgery Hospitalization History surgery only
--- OUTSIDE RECORDS SUMMARY | 2018-01-02 07:21 | XMS REPORT | Continuity of Care Document ---
Author Author [facility] Address Unknown Phone Unavailable Allergies Active Description Code Type Severity Reaction Onset Reported/Identified Relationship to Patient Clinical Status Yes NO KNOWN DRUG ALLERGIES UNKNOWN NO KNOWN DRUG ALLERG Yes No Known Drug Allergies [id number] Drug Allergy Unknown N/A 10/06/2010 Yes Hydrocodone Drug Allergy N/A N/A 05/30/2012 Yes Xanax Drug Allergy N/A N/A 05/30/2012 Yes Hydrocodone Drug Allergy 05/30/2012 Yes Xanax Drug Allergy 05/30/2012 Yes Wellbutrin SR 150 mg tablet extended release Drug Allergy N/A N/A 2013 Medications Medication Packaging Start Date Stop Date Route Dosage Sig ENALAPRIL VIAL INJ 1.25 MG/CC (VASOTEC VIAL) MG 05/14/2017 05/14/2017 PRN ONCE FENTANYL INJ 100 MCG/2CC VIAL MCG 05/14/2017 05/14/2017 ONCE&0505 FENTANYL INJ 100 MCG/2CC VIAL MCG 05/14/2017 05/14/2017 ONCE&0555 Problems Date Dx Coded Attending Type Code [...] CARTER DO 401.9 UNSPECIFIED ESSENTIAL HYPERTENSION 11/05/2010 CARTER DO, JODI K 431 INTRACEREBRAL HEMORRHAGE 11/05/2010 CARTER DO, JODI K 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 11/05/2010 CARTER DO, JODI K 729.5 Pain In Limb 11/05/2010 CARTER DO, JODI K 780.52 INSOMNIA UNSPECIFIED 11/05/2010 KURT RUBI APRN [...] DO, JODI K 780.52 INSOMNIA UNSPECIFIED 11/05/2010 WERDER DO, SRAVANI F 272.4 Other And Unspecified Hyperlipidemia 11/05/2010 WERDER DO, SRAVANI F 305.1 NONDEPENDENT TOBACCO USE DISORDER 11/05/2010 WERDER DO, SRAVANI F 401.9 UNSPECIFIED ESSENTIAL HYPERTENSION 11/05/2010 WERDER DO, SRAVANI F 431 INTRACEREBRAL HEMORRHAGE 11/05/2010 WERDER DO, SRAVANI F 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 11/05/2010 TIFFANIEDER DO, SRAVANI F 729.5 Pain In Limb 11/05/2010 TIFFANIEDER DO, SRAVANI F 780.52 INSOMNIA UNSPECIFIED 11/05/2010 CARTER DO JODI K 272.4 Other And Unspecified Hyperlipidemia 11/05/2010 CARTER DO JODI K 305.1 NONDEPENDENT TOBACCO USE DISORDER 11/05/2010 CARTER DO JODI K 401.9 UNSPECIFIED ESSENTIAL HYPERTENSION 11/05/2010 CARTER DO, JODI K 431 INTRACEREBRAL HEMORRHAGE 11/05/2010 CARTER DO JODI K 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.] K 736.81 UNEQUAL LEG LENGTH (ACQUIRED) 01/28/2011 WERDER DO, SRAVANI F 720.2 Sacroiliitis Not Elsewhere Classified 01/28/2011 WERDER DO, SRAVANI F 726.5 Enthesopathy Of Hip Region 01/28/2011 WERDER DO, SRAVANI F 728.85 Spasm Of Muscle 01/28/2011 WERDER DO, SRAVANI F 736.81 UNEQUAL LEG LENGTH (ACQUIRED) 01/28/2011 CARTER DO JODI K 720.2 Sacroiliitis Not Elsewhere Classified 01/28/2011 CARTER DO JODI K 726.5 Enthesopathy Of Hip Region 01/28/2011 CARTER DO, JODI K 728.85 Spasm Of Muscle 01/28/2011 CARTER DO, JODI K 736.81 UNEQUAL LEG LENGTH (ACQUIRED) 03/03/2011 CARTER DO JODI K 053.9 Herpes Zoster Without Complication 03/03/2011 CARTER DO JODI K 276.51 Dehydration 03/03/2011 CARTER DO JODI K 584.9 Acute Kidney Failure Unspecified 03/03/2011 KURT RUBI APRN 053.9 Herpes Zoster Without Complication 03/03/2011 KURT RUBI APRN 276.51 Dehydration 03/03/2011 KURT RUBI APRN 584.9 Acute Kidney Failure Unspecified 03/03/2011 053.9 Herpes Zoster Without Complication 03/03/2011 276.51 Dehydration 03/03/2011 584.9 Acute Kidney Failure Unspecified 03/03/2011 CARTER DO JODI K 053.9 Herpes Zoster Without Complication 03/03/2011 CARTER DO, JODI K 276.51 Dehydration 03/03/2011 CARTER DO JODI K 584.9 Acute Kidney Failure Unspecified 03/03/2011 CARTER DO, JODI K 053.9 Herpes Zoster Without Complication 03/03/2011 CARTER DO, JODI K 276.51 Dehydration 03/03/2011 CARTER DO, JODI K 584.9 Acute Kidney Failure Unspecified 03/03/2011 WERDER DO, SRAVANI F 053.9 Herpes Zoster Without Complication 03/03/2011 WERDER DO, SRAVANI F 276.51 Dehydration 03/03/2011 WERDER DO, SRAVANI F 584.9 Acute Kidney Failure Unspecified 03/03/2011 CARTER [...] JODI K 698.9 Unspecified Pruritic Disorder 04/06/2011 WERDER DO SRAVANI F 606.9 MALE INFERTILITY UNSPECIFIED 04/06/2011 WERDER DO, SRAVANI F 698.9 Unspecified Pruritic Disorder 04/06/2011 CARTER DO, JODI K 606.9 MALE INFERTILITY UNSPECIFIED 04/06/2011 CARTER DO, JODI K 698.9 Unspecified Pruritic Disorder 04/22/2011 CARTER DO, JODI K 724.2 Back Pain, Lower 04/22/2011 KURT RUBI APRN 724.2 Back Pain, Lower 04/22/2011 724.2 Back Pain, Lower 04/22/2011 CARTER DO, JODI K 724.2 Back Pain, Lower 04/22/2011 JDOI CARTER DO K 724.2 Back Pain, Lower 04/22/2011 SRAVANI ACOSTA DO 724.2 Back Pain, Lower 04/22/2011 JODI CARTER DO K 724.2 Back Pain, Lower 07/17/2011 ANTHONY CARTER DOA K 311 DEPRESSIVE DISORDER NOS 07/17/2011 KURT RUBI APRN 311 DEPRESSIVE DISORDER NOS 07/17/2011 311 DEPRESSIVE DISORDER NOS 07/17/2011 JODI CARTER DO K 311 DEPRESSIVE DISORDER NOS 07/17/2011 ANTHONY CARTER DOA K 311 DEPRESSIVE DISORDER NOS 07/17/2011 SRAVANI ACOSTA DO 311 DEPRESSIVE DISORDER NOS 07/17/2011 ANTHONY CARTER DOA K 311 DEPRESSIVE DISORDER NOS 10/05/2011 JODI CARTER DO K 300.02 AN GEN ANXIETY 10/05/2011 KURT RUBI APRN 300.02 AN GEN ANXIETY 10/05/2011 300.02 AN GEN ANXIETY 10/05/2011 JODI CARTER DO K 300.02 AN GEN ANXIETY 10/05/2011 JODI CARTER DO K 300.02 AN GEN ANXIETY 10/05/2011 SRAVANI ACOSTA DO 300.02 AN GEN ANXIETY 10/05/2011 JODI CARTER DO K 300.02 AN GEN ANXIETY 11/05/2011 JODI CARTER DO K 296.89 MO BIPOLAR II 11/05/2011 KURT RUBI APRN 296.89 MO BIPOLAR II 11/05/2011 296.89 MO BIPOLAR II 11/05/2011 JODI CARTER DO K 296.89 MO BIPOLAR II 11/05/2011 JODI CARTER DO K 296.89 MO BIPOLAR II 11/05/2011 SRAVANI ACOSTA DO 296.89 MO BIPOLAR II 11/05/2011 JODI CARTER DO K 296.89 MO BIPOLAR II 05/30/2012 JODI CARTER DO K 272.4 OTHER AND UNSPECIFIED HYPERLIPIDEMIA 05/30/2012 JODI CARTER DO K 300.00 ANXIETY STATE UNSPECIFIED 05/30/2012 JODI CARTER DO K 338.29 OTHER CHRONIC PAIN 05/30/2012 JODI CARTER DO K 530.81 ESOPHAGEAL REFLUX 05/30/2012 JODI CARTER DO V58.69 LONG-TERM (CURRENT) USE OF OTHER MEDICATIONS 05/30/2012 KURT RUBI APRN 272.4 OTHER AND UNSPECIFIED HYPERLIPIDEMIA 05/30/2012 GREYSON KURT TORRES 300.00 ANXIETY STATE UNSPECIFIED 05/30/2012 GREYSON KURT TORRES 338.29 OTHER CHRONIC PAIN 05/30/2012 GREYSON COBIANKURT Lundberg 530.81 ESOPHAGEAL REFLUX 05/30/2012 GREYSON COBIANKURT [place] V58.69 LONG-TERM (CURRENT) USE OF OTHER MEDICATIONS 05/30/2012 272.4 OTHER AND UNSPECIFIED HYPERLIPIDEMIA 05/30/2012 300.00 ANXIETY STATE UNSPECIFIED 05/30/2012 338.29 OTHER CHRONIC PAIN 05/30/2012 530.81 ESOPHAGEAL REFLUX 05/30/2012 V58.69 LONG-TERM ( CURRENT) USE OF OTHER MEDICATIONS 05/30/2012 CARTER DO, OJDI K 272.4 OTHER AND UNSPECIFIED HYPERLIPIDEMIA 05/30/2012 CARTER DO, JODI K 300.00 ANXIETY STATE UNSPECIFIED 05/30/2012 CARTER DO, JODI K 338.29 OTHER CHRONIC PAIN 05/30/2012 CARTER DO, JODI K 530.81 ESOPHAGEAL REFLUX 05/30/2012 CARTER DO, JODI K V58.69 LONG-TERM (CURRENT) USE OF OTHER MEDICATIONS 05/30/2012 ACRTER DO, JODI K 272.4 OTHER AND UNSPECIFIED [...] DO, JODI K 466.0 Bronchitis, Acute 08/05/2012 KARLA ZHOU SRAVANI F 466.0 BRONCHITIS, ACUTE 08/05/2012 CARTER DO, JODI [...] 356.9 UNSPECIFIED IDIOPATHIC PERIPHERAL NEUROPATHY 08/14/2014 CARTER DO JODI K 461.9 SINUSITIS ACUTE 10/21/2015 CYNTHIA ZAMUDIO MD Ot F17.210 NICOTINE DEPENDENCE, CIGARETTES, UNCOMPL 10/21/2015 CYNTHIA ZAMUDIO MD Ot F19.90 OTHER PSYCHOACTIVE SUBSTANCE USE, UNSPEC 10/21/2015 CYNTHIA ZAMUDIO MD Ot R40.2140 COMA SCALE, EYES OPEN, SPONTANEOUS, UNSP 10/21/2015 CYNTHIA ZAMUDIO MD Ot T50.904A POISONING BY [facility] DRUG/MEDS/BIOL SUBST, 05/14/2017 ROBER AHMADI, BRENDA Lara Ot R51 HEADACHE 05/14/2017 Mayito Caldwell W 345.90 EPILEPSY, UNSPECIFIED, WITHOUT MENTION OF INTRACTABLE EPILEPSY 05/14/2017 Mayito Caldwell 401.9 UNSPECIFIED ESSENTIAL HYPERTENSION 05/14/2017 Mayito Caldwell 668.82 OTHER COMPLICATIONS OF ANESTHESIA OR OTHER SEDATION IN LABOR AND DELIVERY, DELIVERED, WITH MENTION OF COMPLICATION 05/14/2017 Mayito Caldwell G40.909 EPILEPSY, UNSP, NOT INTRACTABLE, WITHOUT STATUS EPILEPTICUS 05/14/2017 Mayito Caldwell I10 ESSENTIAL (PRIMARY) HYPERTENSION 05/14/2017 Mayito Caldwell R51 HEADACHE Procedures Code Description [place] [address] PSYCH PHARM MGMT 08/20/2012 Results Test Result Range BMP - 05/14/17 05:05 Anion Gap 15 6-14 BUN 14 mg/dL 5-25 Calcium 9.7 mg/dL 8.3-10.4 Chloride 106 mmol/L 95-114 CO2 23 mEq/L 22-33 Creat 0.98 mg/dL 0.50-1.50 eGFR 100 mL/min/1.73m2 >59 Glucose 96 mg/dL 70-110 Osmo 289 280-295 Potassium 3.7 mmol/L 3.5-5.3 Sodium 140 mmol/L 134-148 Encounters ACCT No. Visit Date/Time Discharge Status Pt. Type Provider Facility Loc./Unit Complaint [id number] 08/14/2014 14:19:00 08/14/2014 23:59:59 CLS Outpatient JODI CARTER DO [id number] 11/24/2013 10:27:00 11/24/2013 23:59:59 CLS Outpatient JODI CARTER DO [id number] 03/13/2013 14:09:00 03/13/2013 23:59:59 CLS Outpatient JODI CARTER DO [id number] 09/06/2012 08:46:00 09/06/2012 23:59:59 CLS Outpatient JODI CARTER DO [id number] 08/19/2012 00:00:00 08/19/2012 23:59:59 CLS Outpatient KURT RUBI APRN [id number] 06/23/2012 09:56:00 06/23/2012 23:59:59 CLS Outpatient SRAVANI ACOSTA DO [id number] 02/07/2013 12:55:00 Document Registration [id number] 05/14/2017 04:33:00 05/14/2017 06:33:00 DIS Outpatient Mayito Caldwell [facility] [place] [id number] 05/14/2017 04:52:48 Document Registration [id number] 12/31/2017 10:12:00 12/31/2017 11:57:00 DIS Emergency MARIAA SHORE APRN [facility] ER PAIN/UNABLE TO WALK [id number] 05/14/2017 03:50:00 05/14/2017 04:30:00 DIS Emergency BRENDA RICHTER MD [facility] ER HEADACHE/DIZZINESS [id number] 10/20/2015 15:55:00 ACT Inpatient CYNTHIA ZAMUDIO MD [facility] ICU DRUG OVERDOSE HYPGLYCEMIA QUEST SEIZURE ACTIVITY [id number] 12/15/2010 14:02:00 Document Registration [id number] 10/06/2010 15:50:00 Document Registration [id number] 12/31/2017 10:00:00 ACT Outpatient BEULAH BANERJEETerrence [facility]
== END 2017-12-31 11:57 | disposition home or self-care (01) ==
LOC: EDUNIT# 10:09 → ER 10:12
DX: R51 Headache (principal); Z86.79 Personal history of other diseases of the circulatory system
CPT/HCPCS: 36415; 70450; 71045; 80053; 82550; 83874; 85025; 93005

== ENCOUNTER 2020-07-24 20:44 | Inpatient (IN) | payer MEDICAID, OTHER ==
[~2020-07-24] VITALS: Ht 162 cm; Wt 82.0 kg
[~2020-07-24 20:44] MED LIST changes: -IBUP-2473 PO; -IRON1TAB86 PO
--- NOTE | 2020-07-24 21:44 | NUR ---
NOTIFIED ABEL OF PT ARRIVAL, NEW ORDERS RECEIVED-SEE ORDER HX. LABS TO BE DRAWN AT [address] ROMAN-MADE DR ROMAN AWARE THAT ROUTINE ICU LABS ARE DRAWN AT 0300-ORDERS FOR LABS TO BE DRAWN AT 0600.
--- NOTE | 2020-07-24 21:56 | NUR ---
NOTIFIED DR HORNE OF CONSULT
--- NOTE | 2020-07-24 22:10 | NUR ---
ORDERS TO CONTINUE HEPARIN GTT
[2020-07-24 22:35] LABS: FIBRIN DEGRADATION PRODUCTS 0.96 UG/ML (0.00-0.49); INR 1.1 (0.8-1.4); PROTHROMBIN TIME PATIENT 14.4 SEC (12.2-14.7)
[2020-07-24] MEDS ORDERED: HEParin DRIP 25000 UNIT/500ML 500 ML IV ONE (22:46)
[2020-07-24] MEDS ORDERED: NS IV 1000 ML 1,000 ML ONE (22:59)
[2020-07-24] MEDS ORDERED: HEParin DRIP 25000 UNIT/500ML 500 ML IV SCH (23:06)
[2020-07-24] MEDS ORDERED: NS IV 1000 ML 1,000 ML IV SCH (23:15)
[2020-07-24] MEDS ORDERED: NITROGLYCERIN 0.4 MG SL TABS BTL 25'S SL PRN (23:15)
[2020-07-24] MEDS ORDERED: HEParin 1000 UNIT/ML (10ML VIAL) FOR BOLUS IV SCH (23:15)
[2020-07-25] MEDS: ACETAMINOPHEN 325 MG TABLET PO PRN ×2 (02:00→22:58)
--- NOTE | 2020-07-25 02:03 | NUR ---
PT C/O OF CHEST PAIN-DESCRIBES PAIN PRESSURE IN MIDDLE OF CHEST, PAIN DOES NOT RADIATE, RATES PAIN 5/10,-NITRO GIVEN X1, PAIN DECREASED TO 2/10, VSS
--- NOTE | 2020-07-25 04:07 | Pulmonary Consultation ---
History of Present Illness History of Present Illness Date Seen by Provider: Jul 25, 2020 Time Seen by Provider: 04:02 Date of Admission Allergies and Home Medications Allergies Coded Allergies: No Known Drug Allergies (Unverified , 10/06/10) Home Medications Acetaminophen 500 Mg Tablet, 500-1,000 MG PO Q6H PRN for PAIN, (Reported) TAKES 1 TO 2 (500MG) TABLETS Amlodipine Besylate 10 Mg Tablet, 10 MG PO DAILY, (Reported) LAST FILLED #30 08-13-15 Loratadine 10 Mg Tablet, 10 MG PO DAILY, (Reported) LAST FILLED #30 07-22-15 Metoprolol Tartrate 50 Mg Tablet, 25 MG PO BID, (Reported) LAST FILLED #30 07-22-15 TAKES 1/2 (50MG) TABLET Simvastatin 20 Mg Tablet, 20 MG PO DAILY, (Reported) LAST FILLED #30 07-22-15 Past Ltmiriq-Eqtvzu-Yhlrxn Hx Patient Social History Type Used: Cigarettes Recent Hopitalizations: No Immunizations Up To Date Tetanus Booster (TDap): Unknown Seasonal Allergies Seasonal Allergies: No Past Medical History Surgeries: Yes (Coil 09/18/10; RIGHT 5TH DIGIT) Amputation Respiratory: No Cardiac: Yes Hypertension Neurological: No Reproductive Disorders: No Genitourinary: No Gastrointestinal: No Gastroesophageal Reflux Musculoskeletal: No Endocrine: No HEENT: No Cancer: No Psychosocial: Yes Anxiety, Violent Behavior Blood Disorders: No Family Medical History No Pertinent Family Hx Review of Systems Time Seen by Provider: 04:02 Sepsis Event Evaluation Height, Weight, BMI Height: 5'5.00" Weight: 200lbs. oz. 90.620882ai; 31.24 BMI Method:Stated Exam Exam Vital Signs Date Time Temp Pulse Resp B/P (MAP) Pulse Ox O2 Delivery O2 Flow Rate FiO2 07/25/20 03:50 36.1 07/25/20 01:00 104 07/25/20 00:28 95 Nasal Cannula 2.00 07/25/20 00:00 80 21 137/93 98 Nasal Cannula 2.00 07/24/20 23:48 36.2 07/24/20 23:30 95 Nasal Cannula 2.00 07/24/20 23:15 105 22 127/89 96 Nasal Cannula 2.00 07/24/20 22:45 106 23 135/95 95 Nasal Cannula 2.00 07/24/20 22:15 106 14 151/119 96 Nasal Cannula 2.00 07/24/20 22:00 105 26 153/117 93 Nasal Cannula 2.00 07/24/20 21:45 114 18 90 Nasal Cannula 2.00 07/24/20 21:42 111 07/24/20 21:35 95 Nasal Cannula 2.00 07/24/20 21:35 36.4 104 20 140/114 96 Nasal Cannula 2.00 07/24/20 21:30 100 23 145/111 96 Nasal Cannula 2.00 I & O 07/25/20 07:00 Intake Total 0 ml Output Total 425 ml Balance -425 ml Height & Weight Height: 5'5.00" Weight: 200lbs. oz. 90.453651gu; 31.24 BMI Method:Stated Capillary Refill: Less Than 3 Seconds Assessment/Plan Assessment/Plan COVID + -Labs pending -CXR Pending -Symptoms started 2 days ago -Pt is requiring only 2 liters -USA 5/10 improved to 2/10 with nitro with NSTEMI -Cardiology is consulted MINA CAMP DO Jul 25, 2020 04:07
[2020-07-25] MEDS: LACTATED RINGERS 1,000 ML IV SCH ×2 (04:20→18:06)
[2020-07-25 04:43] LABS: BASOPHILS % (AUTO) 0 % (0-10); EOSINOPHILS % (AUTO) 1 % (0-10); HEMATOCRIT 40 % (40-54); HEMOGLOBIN 13.2 g/dL (13.3-17.7); LYMPHOCYTES # (AUTO) 1.7 10^3/uL (1.0-4.0); LYMPHOCYTES % (AUTO) 29 % (12-44); MEAN CORPUSCULAR HEMOGLOBIN 28 pg (25-34); MEAN CORPUSCULAR HGB CONC 33 g/dL (32-36); MEAN CORPUSCULAR VOLUME 83 fL (80-99); MEAN PLATELET VOLUME 9.4 fL (9.0-12.2); MONOCYTES # (AUTO) 0.5 10^3/uL (0.0-1.0); MONOCYTES % (AUTO) 9 % (0-12); NEUTROPHILS # (AUTO) 3.5 10^3/uL (1.8-7.8); NEUTROPHILS % (AUTO) 61 % (42-75); PLATELET COUNT 303 10^3/uL (130-400); WHITE BLOOD COUNT 5.8 10^3/uL (4.3-11.0)
[2020-07-25 05:11] LABS: ALBUMIN 3.4 GM/DL (3.2-4.5); CHLORIDE 110 MMOL/L (98-107); POTASSIUM 3.9 MMOL/L (3.6-5.0); SODIUM 140 MMOL/L (135-145)
[2020-07-25 05:12] LABS: CALCIUM 8.2 MG/DL (8.5-10.1)
[2020-07-25 05:13] LABS: GLUCOSE 96 MG/DL (70-105); TOTAL PROTEIN 6.6 GM/DL (6.4-8.2)
[2020-07-25 05:14] LABS: CARBON DIOXIDE 19 MMOL/L (21-32)
[2020-07-25 05:15] LABS: PHOSPHORUS 3.2 MG/DL (2.3-4.7)
[2020-07-25 05:15] LABS: BILIRUBIN,TOTAL 0.7 MG/DL (0.1-1.0)
[2020-07-25 05:17] LABS: MAGNESIUM 1.9 MG/DL (1.6-2.4)
[2020-07-25 05:17] LABS: ALKALINE PHOSPHATASE 59 U/L (40-136); CREATININE SERUM 1.03 MG/DL (0.60-1.30); GFR ESTIMATED > 60
[2020-07-25 05:18] LABS: BUN/CREATININE RATIO 11
[2020-07-25 05:20] LABS: ALANINE AMINOTRANSFERASE 15 U/L (0-55)
[2020-07-25 05:22] LABS: FIBRIN DEGRADATION PRODUCTS 0.9 UG/ML (0.00-0.49)
--- NOTE | 2020-07-25 05:55 | Diagnostic Imaging Report ---
INDICATION: Shortness of breath. Comparison made with prior examination 12/31/2017 FINDINGS: Heart size is normal. There are patchy bilateral perihilar infiltrates. There is no pleural effusion or pneumothorax. Mediastinum is unremarkable. IMPRESSION: Nonspecific patchy bilateral perihilar infiltrates. Atypical pneumonia cannot be excluded. Recommend clinical correlation. Dictated by: Dictated on workstation # [id number]
[2020-07-25] MEDS: meTOprolol TARTRATE 25 MG (LOPRESSOR) TABLET PO SCH ×2 (08:28→21:21)
[2020-07-25] MEDS ORDERED: ASPIRIN E.C. 325 MG (ECOTRIN) TABLET PO SCH (09:00)
[2020-07-25] MEDS ORDERED: CLOPIDOGREL 300 MG (PLAVIX) TABLET PO NR (09:30)
[2020-07-25] MEDS ORDERED: ASPIRIN 81 MG CHEW (CHILDREN'S ASA) PO NR (09:30)
[2020-07-25] MEDS ORDERED: dexAMETHasone 6 MG TAB (DECADRON) ONE (09:40)
[2020-07-25] MEDS: dexAMETHasone 6 MG TAB (DECADRON) PO SCH (09:59)
[2020-07-25] MEDS ORDERED: ENOXAPARIN 100 MG/1 ML (LOVENOX) SYR SC SCH (16:30)
[2020-07-25] MEDS ORDERED: NICOTINE 14 MG (NICODERM) PATCH TD NR (17:15)
[2020-07-25] MEDS: ENOXAPARIN 80 MG/0.8 ML (LOVENOX) SYR SC SCH (17:21)
--- NOTE | 2020-07-25 17:26 | Diagnostic Imaging Report ---
EXAMINATION: Chest 1 view HISTORY: Central line placement, NSTEMI. COMPARISON: Chest radiograph 07/25/2020. FINDINGS: Stable enlargement of the cardiac silhouette. Pulmonary vasculature is normal. Stable patchy interstitial opacities throughout both lungs. No pleural effusion or pneumothorax. The osseous structures are intact. Interval placement of a right-sided IJ central line with the tip projecting over the SVC. IMPRESSION: 1. Right-sided IJ central line with the tip projecting over the SVC. No pneumothorax. 2. Stable findings of cardiomegaly and interstitial opacities suggestive of pulmonary edema or atypical pneumonia. Dictated by: Dictated on workstation # [id number]
--- NOTE | 2020-07-25 18:20 | NUR ---
PT TO ROOM 430, ALL BELONGINGS SENT WITH PATIENT. PT ORIENTED TO ROOM AND CALL LIGHT. REPORT GIVEN TO MUKUL TRAN.
--- NOTE | 2020-07-25 18:25 | NUR ---
REPORT RECEIVED FROM RENEE TRAN TO ASSUME NURSING CARE.
--- NOTE | 2020-07-25 18:30 | Consultation-Cardiology ---
HPI-Cardiology Cardiology Consultation: Date of Consultation 07/25/20 Date of Admission Attending Physician Billy Ardon MD Admitting Physician Heather,Local Physician Consulting Physician Alan ACOSTA MD HPI: Time Seen by a Provider: 09:30 Chief Complaint: chest pain this is a 50-year-old gentleman who presents with prolonged episode of chest pain and shortness of breath. He was found to be COVID positive and on appropriate therapy. chest pain is substernal. Moderate intensity. No radiation. Associated with shortness of breath. When I saw the patient he was still complaining of chest discomfort. Some atypical features including worsening with deep breathing. Possible history of smoking. Family history is unremarkable. Review of Systems-Cardiology Review of Systems Constitutional: As described under HPI; No As described under HPI, No no symptoms reported, No chills, No fever, No lightheadedness Eyes: No As described under HPI, No no symptoms reported, No blindness, No blurred vision, No contact lenses, No drainage, No decreased acuity, No foreign body sensation, No pain, No vision change Ears/Nose/Throat: No As described under HPI, No no symptoms reported, No chronic hearing loss, No ear discharge, No ear pain, No nasal drainage, No ulcerations Respiratory: No no symptoms reported; As described under HPI; No As described under HPI, No cough, No orthopnea; shortness of breath; No SOB with excertion Cardiovascular: No no symptoms reported; As described under HPI; No As described under HPI; chest pain; No edema, No irregular heart rate, No lightheadedness, No palpitations Gastrointestinal: No no symptoms reported, No As described under HPI, No abdomen distended, No abdominal pain, No blood streaked bowels, No constipation, No diarrhea, No nausea, No vomiting, No stool coloration changes Genitourinary: No As described under HPI, No burning, No dysuria, No discharge, No frequency, No flank pain, No hematuria, No urgency Skin: No rash, No skin related problems, No ulcerations Psychiatric/Neurological: No anxiety, No depression, No seizure, No focal weakness, No syncope Hematologic: No bleeding abnormalities [id number]-[id number] Hx Patient Social History Type Used: Cigarettes Immunizations Up To Date Tetanus Booster (TDap): Unknown Past Medical History PMH As described under Assessment. Allergies and Home Medications Allergies Coded Allergies: No Known Drug Allergies (Unverified , 1/17/11) Home Medications Acetaminophen 500 Mg Tablet, 1,000 MG PO Q8H PRN for PAIN-MILD (1-4), (Reported) Ibuprofen 200 Mg Tablet, 400 MG PO Q8H PRN for PAIN-MILD (1-4), (Reported) Mv, Min #36/Iron,Carbonyl/FA 1 Each Tablet, 1 EACH PO DAILY, (Reported) Patient Home Medication List Home Medication List Reviewed: Yes Physical Exam-Cardiology Physical Exam Vital Signs/I&O 07/29/20 07/29/20 07/29/20 07/29/20 03:07 06:48 08:00 09:00 Temp 36.4 35.9 Pulse 81 81 84 Resp 18 18 B/P (MAP) 138/91 137/87 Pulse Ox 95 92 O2 Delivery Room Air Room Air Room Air 07/29/20 07/29/20 12:00 12:34 Temp 36.2 Pulse 69 80 Resp 20 B/P (MAP) 129/81 Pulse Ox 95 O2 Delivery Room Air 07/29/20 00:00 Intake Total 1300 ml Output Total 2500 ml Balance -1200 ml Capillary Refill : Less Than 3 Seconds Constitutional: appears stated age, AAO x 3; No apparent distress; well- developed, well-nourished HEENT: PERRL; No discharge; hearing is well preserved, oral hygience is good; No ulceration, No xanthelasmas are seen Neck: No carotid bruit; carotid pulses are 2 + bilaterally Respiratory: chest is bilaterally symmetric, lungs clear to auscultation Cardiovascular: regular rate-rhythm, S1 and S2 Gastrointestinal: soft, audible bowel sounds; No spleenomegaly Rectal: deferred Extremities: normal range of motion, non-tender, normal inspection; No clubbing, No cyanosis; no lower extremity edema bilateral; No significant edema Neurologic/Psychiatric: no motor/sensory deficits, alert, normal mood/affect, oriented x 3, power is 5/5 both on sides Skin: normal color; No rash, No ulcerations Data Review Labs Laboratory Tests 07/29/20 04:24: Sodium Level 135, Potassium Level 3.5L, Chloride Level 104, Carbon Dioxide Level 19L, Anion Gap 12, Blood Urea Nitrogen 16, Creatinine 0.84, Estimat Glomerular Filtration Rate > 60, BUN/Creatinine Ratio 19, Glucose Level 97, Calcium Level 8.2L, Corrected Calcium 8.7, Phosphorus Level 2.7, Magnesium Level 1.9, Total Bilirubin 0.5, Aspartate Amino Transf (AST/SGOT) 23, Alanine Aminotransferase (ALT/SGPT) 18, Alkaline Phosphatase 52, Total Protein 6.4, Albumin 3.4 Microbiology 07/24/20 MRSA Screen - Final, Complete MRSA not isolated ECG Impression ECG Initial ECG Rhythm: Normal Sinus Comment prominent R wave in leads V1 and V2. ST depressions in the precordial leads with T-wave inversions. A/P-Cardiology Assessment/Admission Diagnosis COVID pneumonia, Non-STEMI Plan COVID pneumonia: Defer to the primary team. Mild shortness of breath. Non-STEMI: Dual antiplatelet therapy. Continue low molecular weight heparin. Serial troponin. Will require coronary angiography. We'll schedule when the patient is better from a pulmonary perspective. Thank you for your consultation. Please call me if you have any questions. Norman Acosta MD, FACP, FACC, FSCAI, FHRS, CCDS Interventional Cardiology Cardiac Electrophysiology Vascular Medicine and Endovascular Interventions Clinical Quality Measures DVT/VTE Risk/Contraindication: Risk Factor Score Per Nursin RFS Level Per Nursing on Admit: 4+=Very High Alan ACOSTA MD Jul 25, 2020 18:30
--- NOTE | 2020-07-25 18:30 | NUR ---
THIS RN ENTERS ROOM TO ANSWER PT CALL LIGHT. UPON ENTERING PT STATES, "I HAVE BLOOD ON MY HANDS." THIS RN STEPS TO BEDSIDE AND OBSERVES THAT PT'S NEW CENTRAL LINE SITE IS ACTIVELY BLEEDING. PT'S HAIR, BACK, NECK, CHEST AND HEAD ARE COVERED IN BLOOD AND BLOOD CLOTS. THIS RN IMMEDIATELY BEGINS TO HOLD PRESSURE TO SITE AND CALLS FOR PCT TO GET TL (MUKUL). PCT IS APPARENTLY STUNNED AND DOESN'T MOVE. THIS RN THEN DECIDES TO PRESS THE CODE BUTTON FOR IMMEDIATE ASSISTANCE. CODE TEAM RESPONDS. PT IS STILL ACTIVELY BLEEDING AT 1850. ORDERS FROM [facility] TO HOLD FIRM PRESSURE UNTIL 1920 THEN RE-ASSESS FOR BLEEDING. IF SITE IS STILL ACTIVELY BLEEDING, HOLD PRESSURE FOR 20 MORE MINUTES AND CALL [facility] FOR ADDITIONAL ORDERS.
--- NOTE | 2020-07-25 18:34 | NUR ---
ERLINDA SALES ASSOCIATE IN ROOM, WANDA TRAN CONTINUED TO HOLD PRESSURE ON CENTRAL LUMEN SITE, ICU NURSE AND THIS NURSE IN ROOM, DONAL, AND GAUZE APPLIED WITH PRESSURE, 134/78, 104, O2 SAT 99 PERCENT, PATIENT RAMA PRESSURE WELL. PATIENT ALERT AND COOPERATIVE
[2020-07-25 18:57] LABS: HEMOGLOBIN 12.6 g/dL (13.3-17.7)
--- NOTE | 2020-07-25 19:30 | NUR ---
CALL TO [facility] ER AT THIS TIME FOR FURTHER ORDERS D/T PT'S CENTRAL LINE SITE STILL ACTIVELY BLEEDING. ROBER STATES, "I HAVE TO CALL [facility] FOR ANOTHER CONSULT RIGHT NOW, I WILL SPEAK TO HIM ABOUT THIS PT AND CALL YOU BACK WITH ADDITIONAL INSTRUCTION."
--- NOTE | 2020-07-25 19:30 | Progress Note ---
Progress Note Assessment/Plan Date Seen by Provider: Jul 25, 2020 Time Seen by Provider: 18:35 Events since last exam The patient was having some bleeding from the site of his right internal jugular triple-lumen catheter. A rapid response was called. This provider responded. Staff was holding gauze dressing over the wound. There was no large hematoma, midline shift or airways compromised. He had 100% oxygen saturation was comfortable and talking. He did have a modest amount clotted blood in his hair and on the pillowcase. Patient is on Lovenox with history of in STEMI and COVID- 19. He is requiring 2 L by nasal cannula of oxygen supplementally. He is not having any nausea or feeling like he has narrowed airway or difficulty breathing. The triple-lumen catheter was not placed for hemodynamic status. It was placed because he did not have adequate peripheral IV access. We had them use some Telfa and gauze to apply pressure and wrapped the base of the triple lumen catheter with Surgicel. We asked the nurse to hold 40 minutes of pressure and sat the head of his bed up about 20-30. His blood pressures 134 over 80s. We asked the nurse to update his anything changed. We called Dr. Oates the primary medical team. She is okay with leaving the patient on the floor at this time. Assessment/Plan 45 minutes later the patient was still oozing from the site so we put in a [id number] at the base of the central catheter and a pursestring around the catheter. We used 4-0 Prolene 2 stitches total. This slowed the bleeding down so we left pressure on it for another 45 minutes. He continued to use and nursing staff had produced a right peripheral IV that was adequate. We pulled the tube by the time we got up to the floor to reexamine it was hemostatic. Pressure and a dressing were applied. We asked them to call us if he has any further problems. Vitals Last set of Vitals Signs Vital Signs Date Time Temp Pulse Resp B/P (MAP) Pulse Ox O2 Delivery O2 Flow Rate FiO2 07/25/20 18:57 102 125/87 97 07/25/20 18:55 Nasal Cannula 2.00 07/25/20 18:40 18 07/25/20 16:07 37.2 I&O I&O Intake and Output 07/25/20 00:00 Daily Weight Change No Labs Laboratory Tests 07/24/20 22:14: Prothrombin Time 14.4, INR Comment 1.1, Activated Partial Thromboplast Time 68H, D-Dimer 0.96H, Troponin I 3.857*H 07/25/20 04:05: Sodium Level 140, Potassium Level 3.9, Chloride Level 110H, Carbon Dioxide Level 19L, Anion Gap 11, Blood Urea Nitrogen 11, Creatinine 1.03, Estimat Glomerular Filtration Rate > 60, BUN/Creatinine Ratio 11, Glucose Level 96, Calcium Level 8.2L, Corrected Calcium 8.7, Total Bilirubin 0.7, Aspartate Amino Transf (AST/SGOT) 19, Alanine Aminotransferase (ALT/SGPT) 15, Alkaline Phosphatase 59, Total Protein 6.6, Albumin 3.4, Procalcitonin 0.07 07/25/20 04:34: Activated Partial Thromboplast Time 119*H, D-Dimer 0.90H, Troponin I 3.486*H, White Blood Count 5.8, Red Blood Count 4.76, Hemoglobin 13.2L, Hematocrit 40, Mean Corpuscular Volume 83, Mean Corpuscular Hemoglobin 28, Mean Corpuscular Hemoglobin Concent 33, Red Cell Distribution Width 12.9, Platelet Count 303, Me an Platelet Volume 9.4, Immature Granulocyte % (Auto) 0, Neutrophils (%) (Auto) 61, Lymphocytes (%) (Auto) 29, Monocytes (%) (Auto) 9, Eosinophils (%) (Auto) 1, Basophils (%) (Auto) 0, Neutrophils # (Auto) 3.5, Lymphocytes # (Auto) 1.7, Monocytes # (Auto) 0.5, Eosinophils # (Auto) 0.0, Basophils # (Auto) 0.0, Immature Granulocyte # (Auto) 0.0, Lactic Acid Level 1.02, Phosphorus Level 3.2, Magnesium Level 1.9, B-Type Natriuretic Peptide 1655.0H 07/25/20 18:50: Hemoglobin 12.6L, Hematocrit 37L Focused Exam Lactate Level 07/25/20 04:34: Lactic Acid Level 1.02 Clinical Quality Measures DVT/VTE Risk/Contraindication: Risk Factor Score Per Nursin RFS Level Per Nursing on Admit: 4+=Very High BRENDA RICHTER Jul 25, 2020 19:30
--- NOTE | 2020-07-25 19:40 | Procedure/Intervention Note ---
Procedures/Interventions Lumen: triple Position: internal jugular (R) Anesthesia: Lidocaine Volume Anesthetic (ccs): 5 Complications: none Post Position: sutured, good blood return, position confirmed w/ CXR central line placed at approximately 3pm. staff was unable to obtain IV access, Called by Pump Oiler and Dr Best to place a line. MARIAA SHORE HEALTHCARE MARKETER Jul 25, 2020 19:40
--- NOTE | 2020-07-25 19:50 | NUR ---
ROBER AT BEDSIDE AT THIS TIME. TWO SUTURES PLACED BY ROBER. SITE CONTINUES TO BLEED. ORDERS TO HOLD PRESSURE FOR 40 ADDITIONAL MINUTES AND TRY FOR PERIPHERAL SITE. IF BLEEDING IS STILL ACTIVE AT 2049 CALL ROBER BACK TO FLOOR.
[2020-07-25] MEDS ORDERED: LIDOCAINE 1% INJ 20 ML 20 ML VIAL ONE (19:58)
[2020-07-25] MEDS ORDERED: LIDOCAINE 1% INJ 20 ML 20 ML VIAL INJ ONE (20:15)
--- NOTE | 2020-07-25 20:45 | NUR ---
2044 PRESSURE HAS BEEN HELD BY DR. RICHTER'S MEDICAL STUDENT CL SITE CONTINUES TO ACTIVELY BLEED. DR RICHTER NOTIFIED BY Feng JACK RN. DR. RICHTER INSTRUCTED TO PULL CL AND WOULD BE UP TO ASSESS PT FOR THE NEED OF ADDITIONAL SUTURES. 2049 CL PULLED BY Feng JACK RN. BLUE CATHETER TIP IN PLACE. PRESSURE HELD UNTIL DR. RICHTER ARRIVED. 2054 DR. RICHTER AT BEDSIDE BLEEDING APPEARS TO HAVE SLOWED SIGNIFICANTLY. NO ADDITIONAL SUTURES REQUIRED AT THIS TIME. INSTRUCTED TO NOTIFY DR. RICHTER IF BLEEDING PERSISTS
--- NOTE | 2020-07-25 23:55 | NUR ---
DR. RICHTER INSTRUCTED RN TO WATCH FOR SWELLING TO NECK AREA (THIS WOULD BE TYPICAL). SWELLING NOTED TO PT'S RIGHT NECK AT THIS TIME BUT NOT EFFECTING AIRWAY. DRESSING C/D/I AT THIS TIME, NO BLEEDING NOTED.
[2020-07-26] MEDS ORDERED: NS IV 500 ML 500 ML IV ONE (03:15)
[2020-07-26 03:57] VITALS: BP 133/86
[2020-07-26 04:21] VITALS: BP 136/91
[2020-07-26] MEDS: ENOXAPARIN 80 MG/0.8 ML (LOVENOX) SYR SC SCH ×2 (04:55→16:11)
[2020-07-26 06:27] LABS: CHLORIDE 109 MMOL/L (98-107); POTASSIUM 3.9 MMOL/L (3.6-5.0); SODIUM 137 MMOL/L (135-145)
[2020-07-26 06:28] LABS: CALCIUM 8.1 MG/DL (8.5-10.1)
[2020-07-26 06:29] LABS: BASOPHILS % (AUTO) 0 % (0-10); EOSINOPHILS % (AUTO) 0 % (0-10); GLUCOSE 92 MG/DL (70-105); HEMATOCRIT 34 % (40-54); HEMOGLOBIN 11.2 g/dL (13.3-17.7); LYMPHOCYTES # (AUTO) 1.5 10^3/uL (1.0-4.0); LYMPHOCYTES % (AUTO) 24 % (12-44); MEAN CORPUSCULAR HEMOGLOBIN 28 pg (25-34); MEAN CORPUSCULAR HGB CONC 33 g/dL (32-36); MEAN CORPUSCULAR VOLUME 84 fL (80-99); MEAN PLATELET VOLUME 10.1 fL (9.0-12.2); MONOCYTES # (AUTO) 0.4 10^3/uL (0.0-1.0); MONOCYTES % (AUTO) 7 % (0-12); NEUTROPHILS # (AUTO) 4.3 10^3/uL (1.8-7.8); NEUTROPHILS % (AUTO) 69 % (42-75); PLATELET COUNT 273 10^3/uL (130-400); WHITE BLOOD COUNT 6.3 10^3/uL (4.3-11.0)
[2020-07-26 06:31] LABS: CARBON DIOXIDE 17 MMOL/L (21-32)
[2020-07-26 06:33] LABS: CREATININE SERUM 0.82 MG/DL (0.60-1.30); GFR ESTIMATED > 60; PHOSPHORUS 2.9 MG/DL (2.3-4.7)
[2020-07-26 06:34] LABS: BUN/CREATININE RATIO 16
[2020-07-26 06:35] VITALS: BP 147/98
[2020-07-26 06:36] LABS: MAGNESIUM 1.8 MG/DL (1.6-2.4)
[2020-07-26] MEDS: dexAMETHasone 6 MG TAB (DECADRON) PO SCH (06:41)
[2020-07-26] MEDS: ASPIRIN 81 MG CHEW (CHILDREN'S ASA) PO SCH (08:45)
[2020-07-26] MEDS: NICOTINE 14 MG (NICODERM) PATCH TD SCH (08:45)
[2020-07-26] MEDS: NICOTINE PATCH REMOVAL TP SCH (08:45)
[2020-07-26] MEDS: meTOprolol TARTRATE 25 MG (LOPRESSOR) TABLET PO SCH ×2 (08:45→21:29)
[2020-07-26] MEDS: CLOPIDOGREL 75 MG (PLAVIX) TABLET PO SCH (09:00)
--- NOTE | 2020-07-26 11:48 | NUR ---
Dr. Acosta notified of critical troponin of 2.145 at this time.
[2020-07-26] MEDS ORDERED: ACET-2267 PO (14:09)
[2020-07-26] MEDS ORDERED: IBUP-2473 PO (14:09)
[2020-07-26] MEDS ORDERED: IRON1TAB86 PO (14:09)
--- NOTE | 2020-07-26 14:10 | NUR ---
SPOKE WITH THE PT (I CALLED THE ROOM PHONE), WENT THRU THE EXT MED HISTORY, CALLED [facility] TO COMPLETE THE MED REC WHEN I SPOKE WITH PT HE SAID HE INDICATES HE DOESNT KNOW THE NAMES OF HIS MEDICATIONS AND THAT I SHOULD CALL HIS GIRLFRIEND EMANUEL. I SPOKE WITH EMANUEL ([phone]) AND SHE TOLD ME THE PT TAKES AMLODIPINE 10MG, METOPROLOL TART 100MG, OMEPRAZOLE 20MG, SIMVASTATIN 10MG AND INDICATED THESE WERE FILLED AT [facility]. I CALLED [facility] AND NONE OF THOSE MEDS HAD BEEN FILLED IN OVER A YEAR. I THEN SPOKE WITH THE NURSE AT [facility] WHO CHECKED THE REPOSITORY AND THE PT HAS NEVER RECEIVED THESE FROM THEM. FOR THIS REASON I DID NOT INCLUDE THE ABOVE MEDICATIONS ON THE MED REC OTC MEDS: TYLENOL IBUPROFEN GERITOL
--- NOTE | 2020-07-26 14:47 | Progress Note - Hospitalist ---
Subjective HPI/CC On Admission Date Seen by Provider: Jul 26, 2020 Time Seen by Provider: 14:40 Subjective/Events-last exam Pt reports feeling well today. Had rapid called last night due to bleeding around central line. Bleeding now resolved. He states he's doing better breathing when he has his oxygen on. Focused Exam Lactate Level 07/25/20 04:34: Lactic Acid Level 1.02 Objective Exam Vital Signs Vital Signs Date Time Temp Pulse Resp B/P (MAP) Pulse Ox O2 Delivery O2 Flow Rate FiO2 07/26/20 12:50 109 07/26/20 12:00 36.5 18 139/102 99 Room Air 07/26/20 10:53 1.00 Capillary Refill : Less Than 3 Seconds General Appearance: No Apparent Distress, WD/WN Neck: Other (pressure dressing noted on neck) Respiratory: Lungs Clear, No Respiratory Distress Cardiovascular: Regular Rate, Rhythm, No Murmur Neurologic/Psychiatric: Alert, Oriented x3 Results/Procedures Lab Laboratory Tests 07/25/20 18:50 07/26/20 04:32 Patient resulted labs reviewed. Assessment/Plan Assessment and Plan Assess & Plan/Chief Complaint COVID + - Negative procal - Symptoms started 2 days ago - Pt is requiring only 2 liters - Start remdesivir - Continue decadron, s/p convalescent plasma NSTEMI - Cardiology is consulted - Discussed with Dr Acosta, likely will need cath tomorrow - Lovenox and Plavix held due to bleeding at central line overnight DVT ppx: holding lovenox for bleeding Diagnosis/Problems Diagnosis/Problems (1) COVID-19 Status: Acute (2) Acute respiratory failure Status: Acute Qualifiers: Respiratory failure complication: hypoxia Qualified Codes: J96.01 - Acute respiratory failure with hypoxia (3) NSTEMI (non-ST elevated myocardial infarction) Status: Acute Clinical Quality Measures DVT/VTE Risk/Contraindication: Risk Factor Score Per Nursin RFS Level Per Nursing on Admit: 4+=Very High MARVIN HOWELL MD Jul 26, 2020 14:47
[2020-07-26] MEDS ORDERED: REMDESIVIR INJ 200 MG in NS (IVPB) 210 ML IV NR (15:00)
[2020-07-26] MEDS: LACTATED RINGERS 1,000 ML IV SCH (15:03)
[2020-07-26 15:18] LABS: CHOLESTEROL 132 MG/DL (< 200); HDL CHOLESTEROL 28 MG/DL (40-60); TRIGLYCERIDES 124 MG/DL (<150); VLDL CHOLESTEROL 25 MG/DL (5-40)
[2020-07-26] MEDS: ACETAMINOPHEN 325 MG TABLET PO PRN (16:31)
[2020-07-27] MEDS: ENOXAPARIN 80 MG/0.8 ML (LOVENOX) SYR SC SCH ×2 (05:56→16:34)
[2020-07-27] MEDS: dexAMETHasone 6 MG TAB (DECADRON) PO SCH (05:56)
[2020-07-27 07:09] LABS: BASOPHILS % (AUTO) 0 % (0-10); EOSINOPHILS % (AUTO) 0 % (0-10); HEMATOCRIT 37 % (40-54); HEMOGLOBIN 11.5 g/dL (13.3-17.7); LYMPHOCYTES # (AUTO) 2.2 10^3/uL (1.0-4.0); LYMPHOCYTES % (AUTO) 27 % (12-44); MEAN CORPUSCULAR HEMOGLOBIN 28 pg (25-34); MEAN CORPUSCULAR HGB CONC 31 g/dL (32-36); MEAN CORPUSCULAR VOLUME 89 fL (80-99); MONOCYTES # (AUTO) 0.5 10^3/uL (0.0-1.0); MONOCYTES % (AUTO) 5 % (0-12); NEUTROPHILS # (AUTO) 5.6 10^3/uL (1.8-7.8); NEUTROPHILS % (AUTO) 68 % (42-75); PLATELET COUNT 149 10^3/uL (130-400); WHITE BLOOD COUNT 8.3 10^3/uL (4.3-11.0)
[2020-07-27 07:42] LABS: ALBUMIN 3.4 GM/DL (3.2-4.5); CHLORIDE 107 MMOL/L (98-107); POTASSIUM 4.1 MMOL/L (3.6-5.0); SODIUM 138 MMOL/L (135-145)
[2020-07-27 07:43] LABS: CALCIUM 8.3 MG/DL (8.5-10.1)
[2020-07-27 07:44] LABS: GLUCOSE 87 MG/DL (70-105); TOTAL PROTEIN 6.6 GM/DL (6.4-8.2)
[2020-07-27 07:45] LABS: CARBON DIOXIDE 17 MMOL/L (21-32)
[2020-07-27 07:46] LABS: BILIRUBIN,TOTAL 0.5 MG/DL (0.1-1.0)
[2020-07-27 07:48] LABS: ALKALINE PHOSPHATASE 54 U/L (40-136); CREATININE SERUM 0.89 MG/DL (0.60-1.30); GFR ESTIMATED > 60; PHOSPHORUS 2.9 MG/DL (2.3-4.7)
[2020-07-27 07:49] LABS: BUN/CREATININE RATIO 12
[2020-07-27 07:51] LABS: ALANINE AMINOTRANSFERASE 14 U/L (0-55); MAGNESIUM 1.7 MG/DL (1.6-2.4)
[2020-07-27] MEDS: meTOprolol TARTRATE 25 MG (LOPRESSOR) TABLET PO SCH ×2 (08:31→17:58)
[2020-07-27] MEDS: NICOTINE PATCH REMOVAL TP SCH (08:31)
[2020-07-27] MEDS: NICOTINE 14 MG (NICODERM) PATCH TD SCH (08:31)
[2020-07-27] MEDS: CLOPIDOGREL 75 MG (PLAVIX) TABLET PO SCH (08:31)
[2020-07-27] MEDS: ASPIRIN 81 MG CHEW (CHILDREN'S ASA) PO SCH (08:31)
[2020-07-27] MEDS ORDERED: HEParin (CATH LAB) 2,000 ML IV ONE (11:57)
[2020-07-27] MEDS ORDERED: NS IV 1000 ML 1,000 ML ONE (11:57)
[2020-07-27] MEDS ORDERED: LIDOCAINE 1% INJ 20 ML 20 ML VIAL ONE (11:57)
[2020-07-27] MEDS ORDERED: MIDAZOLAM 5 MG/5 ML (VERSED) VIAL ONE (11:57)
[2020-07-27] MEDS ORDERED: fentaNYL INJECTION 100 MCG/2 ML AMP ONE (11:57)
[2020-07-27] MEDS ORDERED: HEParin 1000 UNIT/ML (10ML VIAL) FOR BOLUS ONE (12:02)
[2020-07-27] MEDS ORDERED: EPTIFIBATIDE BOLUS 0 ML IV ONE (12:02)
[2020-07-27] MEDS ORDERED: VERAPAMIL 5 MG/2 ML (CALAN) VIAL IV ONE (12:02)
[2020-07-27] MEDS ORDERED: NITRO DRIP 25000 MCG/D5W 250 ML IV ONE (12:02)
[2020-07-27] MEDS ORDERED: EPTIFIBATIDE DRIP 0 ML IV ONE (12:02)
--- NOTE | 2020-07-27 12:12 | NUR ---
Patient to agriculture laborer at this time via bed. This RN will assume care of this patient when he arrives back to room 430-1.
[2020-07-27] MEDS ORDERED: CLOPIDOGREL 300 MG (PLAVIX) TABLET PO ONE (13:29)
--- NOTE | 2020-07-27 13:31 | Coronary Angiography & PCI ---
Coronary Angiography & PCI DATE OF PROCEDURE: 07/27/20 INDICATION: non-STEMI, COVID-19 pneumonia PREOPERATIVE DIAGNOSIS: non-STEMI, COVID-19 pneumonia POSTOPERATIVE DIAGNOSIS: severe CAD, treated with drug-eluting stent. HISTORY: this is a 50-year-old gentleman who presents with chest pain and shortness of breath. Positive cardiac enzymes. Working diagnosis is non- STEMI.Therefore, the patient was scheduled for coronary angiography. PROCEDURES PERFORMED: 1.Coronary angiography. 2.Left heart catheterization. 3.PTCA to OM artery. 4. PCI to mid LAD with drug-eluting stent. COMPLICATIONS: None. SPECIMENS: None. ESTIMATED BLOOD LOSS: 10 mL ANESTHESIA: Conscious sedation ANTICOAGULATION: IV heparin CONTRAST: 159 mL. FLUOROSCOPY: FLOUROSCOPY DOSE: 2124 mgy. PROCEDURE DETAILS: The patient is a 50 male and was brought to the laborer cutting tool after informed consent was taken. All the risks and complications were explained in detail; this included the risk of bleeding, vascular damage, stroke, [place] and even . The patient was draped and prepped in the usual sterile fashion. Access was gained in the right femoral artery with a 6 Burkinan sheath. Coronary angiography and left heart catheterization was performed with a JR4 and JL4 catheter. FINDINGS: 1.Left main: Patent. 2.LAD: Severe mid LAD disease. Very distal disease noted as well. A first diagonal artery is occluded at the ostium and filled by left to left collaterals. 3.Left circumflex artery: Occluded first OM artery with faint distal filling. 4.RCA: Anomalous origin. Moderate diffuse disease, however with no focal stenosis. 5.Left heart catheterization: Moderate to severe LV systolic dysfunction with global hypokinesis. EF is 35-40 percent. LV pressure 103/2 mmHg. LVEDP 15 mmHg. Aortic pressure 105/73 mmHg. RECOMMENDATIONS: 1. PCI to occluded first OM is recommended. 2. PCI to mid LAD is recommended. INTERVENTION DETAILS: EBU 3.5 guide catheter, whisper extra-support guidewire, IV heparin 5000 units. With an emerge 2.0 x 8 mm balloon and the whisper wire we were able to cross the occlusive segment in the first OM artery. Once intraluminal wire position was confirmed, numerous low pressure inflations were done with the 2.0 balloon at 6 laura. Recanalization achieved, however very small vessel, not suitable for PCI. Therefore wire and balloon taken out. We then crossed the mid LAD with the same wire and took a Xience Ele 2.25 x 38 mm stent and deployed it at 16 laura for 20 seconds. Excellent results with YOLIE 3 flow and no residual stenosis. Post angiogram showed excellent results. Minx closure of the RFA. Patient tolerated procedure well and did not have any complication. He left the catheter lab with stable hemodynamics. CONCLUSIONS: 1. Non-STEMI, COVID-19 pneumonia. 2. Likely recent occlusion of first OM which was treated with PTCA alone. However very small vessel with diffuse disease not suitable for PCI therefore left alone. 3. Severe long stenosis of the mid LAD treated successfully with one drug- eluting stent. 4. Long-term dual antiplatelet therapy. 5. Aggressive secondary measures for CAD. Norman Acosta MD, FACP, FACC, [facility] Interventional Cardiology Alan ACOSTA MD Jul 27, 2020 13:31
--- NOTE | 2020-07-27 13:31 | Cardiology Progress Note ---
Cardiology SOAP Progress Note Subjective: occasional discomfort. Objective: I&O/Vital Signs 07/29/20 07/29/20 07/29/20 07/29/20 03:07 06:48 08:00 09:00 Temp 36.4 35.9 Pulse 81 81 84 Resp 18 18 B/P (MAP) 138/91 137/87 Pulse Ox 95 92 O2 Delivery Room Air Room Air Room Air 07/29/20 07/29/20 12:00 12:34 Temp 36.2 Pulse 69 80 Resp 20 B/P (MAP) 129/81 Pulse Ox 95 O2 Delivery Room Air 07/29/20 00:00 Intake Total 1300 ml Output Total 2500 ml Balance -1200 ml Weight (Pounds): 200 Weight (Calculated Kilograms): 90.278679 Constitutional: AAO x 3 Respiratory: chest is bilaterally symmetric, lungs clear to auscultation Cardiovascular: regular rate-rhythm, S1 and S2 Gastrointestional: soft, audible bowel sounds Extremities: normal range of motion, non-tender, normal inspection, no lower extremity edema bilateral Neurologic/Psychiatric: no motor/sensory deficits, alert, normal mood/affect, oriented x 3 Skin: normal color Results/Procedures: Labs Laboratory Tests 07/29/20 04:24: Sodium Level 135, Potassium Level 3.5L, Chloride Level 104, Carbon Dioxide Level 19L, Anion Gap 12, Blood Urea Nitrogen 16, Creatinine 0.84, Estimat Glomerular Filtration Rate > 60, BUN/Creatinine Ratio 19, Glucose Level 97, Calcium Level 8.2L, Corrected Calcium 8.7, Phosphorus Level 2.7, Magnesium Level 1.9, Total Bilirubin 0.5, Aspartate Amino Transf (AST/SGOT) 23, Alanine Aminotransferase (ALT/SGPT) 18, Alkaline Phosphatase 52, Total Protein 6.4, Albumin 3.4 Microbiology 07/24/20 MRSA Screen - Final, Complete MRSA not isolated A/P: Assessment/Dx: non-STEMI, COVID pneumonia Plan: coronary angiography today. COVID pneumonia: Defer to the primary team. Thank you for your consultation. Please call me if you have any questions. Norman Acosta MD, FACP, FACC, FSCAI, FHRS, CCDS Interventional Cardiology Cardiac Electrophysiology Vascular Medicine and Endovascular Interventions Focused Exam Lactate Level Alan ACOSTA MD Jul 27, 2020 13:31
--- NOTE | 2020-07-27 13:36 | NUR ---
patient will go to either cardiac stepdown or icu after procedure today due to intervention.
--- NOTE | 2020-07-27 13:40 | NUR ---
THIS RN IS TAKING OVER CARE OF PT POST CARDIAC CATH. PT IS ALERT AND AWAKE, ORIENTED X 4. ICE CHIPS GIVE TO PT. HE IS LYING FLAT AT THIS TIME AND UNDERSTANDS HE IS TO REMAIN THIS WAY FOR FOUR HOURS. DRESSING TO RT GROIN IS DRY AND INTACT.
[2020-07-27] MEDS ORDERED: PATIENT MAY USE OWN MEDS, ALL PO SCH (13:45)
--- NOTE | 2020-07-27 14:18 | Progress Note - Hospitalist ---
Subjective HPI/CC On Admission Date Seen by Provider: Jul 27, 2020 Time Seen by Provider: 14:13 Subjective/Events-last exam Pt just went to catheter builder for intervention. Focused Exam Lactate Level 07/25/20 04:34: Lactic Acid Level 1.02 Objective Exam Vital Signs Vital Signs Date Time Temp Pulse Resp B/P (MAP) Pulse Ox O2 Delivery O2 Flow Rate FiO2 07/27/20 12:33 87 07/27/20 11:45 36.4 20 121/81 97 Nasal Cannula 0.50 Capillary Refill : Less Than 3 Seconds General Appearance: No Apparent Distress, WD/WN Respiratory: Lungs Clear, No Respiratory Distress Cardiovascular: Regular Rate, Rhythm, No Murmur Neurologic/Psychiatric: Alert, Oriented x3 Results/Procedures Lab Laboratory Tests 07/27/20 06:45 Patient resulted labs reviewed. Assessment/Plan Assessment and Plan Assess & Plan/Chief Complaint COVID + - Negative procal - Pt currently off oxygen - Cont remdesivir - Continue decadron, s/p convalescent plasma NSTEMI - Cardiology is consulted - Discussed with Dr Acosta, went to cath, intervention - Continue Metoprolol - Advised smoking cessation - DAPT- monitor closing as had bleeding two nights ago from central line DVT ppx: holding lovenox for bleeding Diagnosis/Problems Diagnosis/Problems (1) COVID-19 Status: Acute (2) Acute respiratory failure Status: Acute Qualifiers: Respiratory failure complication: hypoxia Qualified Codes: J96.01 - Acute respiratory failure with hypoxia (3) NSTEMI (non-ST elevated myocardial infarction) Status: Acute Clinical Quality Measures DVT/VTE Risk/Contraindication: Risk Factor Score Per Nursin RFS Level Per Nursing on Admit: 4+=Very High MARVIN HOWELL MD Jul 27, 2020 14:18
[2020-07-27] MEDS: NS IV 1000 ML 1,000 ML IV SCH ×2 (14:21→23:45)
[2020-07-27] MEDS: REMDESIVIR INJ 100 MG in NS (IVPB) 230 ML IV SCH (15:11)
[2020-07-27] MEDS: ACETAMINOPHEN 325 MG TABLET PO PRN ×2 (15:50→23:45)
--- NOTE | 2020-07-27 17:33 | NUR ---
pt continues to c/o pain.he is able to tolerate po meds now. dr carpenter ordered lortab for his pain. HOB now elevated so he can eat.
[2020-07-27] MEDS: HYDROcodone/APAP 5 MG/325 MG (LORTAB) TAB PO PRN (17:58)
--- NOTE | 2020-07-27 18:55 | NUR ---
[employer] DID OVERIDE IN [facility] THIS AFTERNOON FOR THIS RN SO PT COULD GET PAIN MED. THE PHARMACY HAD ALREADY LEFT FOR THE NIGHT.,
[2020-07-28] MEDS: LACTATED RINGERS 1,000 ML IV SCH (02:22)
[2020-07-28 04:28] LABS: HEMOGLOBIN 10.2 g/dL (13.3-17.7); MEAN PLATELET VOLUME 10.1 fL (9.0-12.2); WHITE BLOOD COUNT 8.5 10^3/uL (4.3-11.0)
[2020-07-28 04:35] LABS: ALBUMIN 3.3 GM/DL (3.2-4.5); CHLORIDE 108 MMOL/L (98-107); POTASSIUM 3.6 MMOL/L (3.6-5.0); SODIUM 139 MMOL/L (135-145)
[2020-07-28 04:37] LABS: GLUCOSE 92 MG/DL (70-105)
[2020-07-28 04:38] LABS: TOTAL PROTEIN 6.2 GM/DL (6.4-8.2)
[2020-07-28 04:39] LABS: BILIRUBIN,TOTAL 0.5 MG/DL (0.1-1.0); CARBON DIOXIDE 20 MMOL/L (21-32)
[2020-07-28 04:41] LABS: ALKALINE PHOSPHATASE 51 U/L (40-136); GFR ESTIMATED > 60
[2020-07-28 04:42] LABS: BUN/CREATININE RATIO 16
[2020-07-28 04:44] LABS: ALANINE AMINOTRANSFERASE 14 U/L (0-55); MAGNESIUM 1.8 MG/DL (1.6-2.4)
--- NOTE | 2020-07-28 05:27 | Pulmonary Progress Note ---
Subjective Time Seen by a Provider: 05:26 Subjective/Events-last exam No complications noted. Sepsis Event Evaluation Height, Weight, BMI Height: 5'5.00" Weight: 200lbs. oz. 90.823406fe; 31.24 BMI Method:Stated Exam Exam Vital Signs Date Time Temp Pulse Resp B/P (MAP) Pulse Ox O2 Delivery O2 Flow Rate FiO2 07/28/20 03:43 36.5 90 18 138/90 95 Room Air 07/28/20 01:00 75 07/27/20 23:43 36.0 80 20 126/85 98 Room Air 07/27/20 20:20 36.9 89 18 125/86 99 Nasal Cannula 1.00 07/27/20 20:00 Room Air 1.00 07/27/20 19:00 100 07/27/20 15:59 100 18 138/90 100 Nasal Cannula 2.00 07/27/20 12:33 87 07/27/20 11:45 36.4 87 20 121/81 97 Nasal Cannula 0.50 07/27/20 08:17 36.0 95 18 137/88 96 Room Air 07/27/20 08:00 96 Room Air 1.00 07/27/20 07:00 82 I & O 07/28/20 07:00 Intake Total 650 ml Output Total 600 ml Balance 50 ml Height & Weight Height: 5'5.00" Weight: 200lbs. oz. 90.696817xw; 31.24 BMI Method:Stated General Appearance: No Apparent Distress, WD/WN Neck: Other (pressure dressing noted on neck) Respiratory: Lungs Clear, No Respiratory Distress Cardiovascular: Regular Rate, Rhythm, No Murmur Capillary Refill: Less Than 3 Seconds Neurologic/Psychiatric: Alert, Oriented x3 Results Lab Laboratory Tests 07/27/20 06:45 07/28/20 04:15 Assessment/Plan Assessment/Plan COVID + -Remdesivir, CVP -Pt is now on RA -[facility] 01/27 improved to 2/10 with nitro with NSTEMI -Cardiology is consulted MINA CAMP DO Jul 28, 2020 05:27
[2020-07-28] MEDS: dexAMETHasone 6 MG TAB (DECADRON) PO SCH (06:12)
[2020-07-28] MEDS: ENOXAPARIN 80 MG/0.8 ML (LOVENOX) SYR SC SCH (06:12)
[2020-07-28] MEDS: NICOTINE 14 MG (NICODERM) PATCH TD SCH (08:42)
[2020-07-28] MEDS: ASPIRIN E.C. 81 MG (ECOTRIN) TAB PO SCH (08:42)
[2020-07-28] MEDS: HYDROcodone/APAP 5 MG/325 MG (LORTAB) TAB PO PRN (08:42)
[2020-07-28] MEDS: CLOPIDOGREL 75 MG (PLAVIX) TABLET PO SCH (08:42)
[2020-07-28] MEDS: NICOTINE PATCH REMOVAL TP SCH (08:43)
[2020-07-28] MEDS: meTOprolol TARTRATE 25 MG (LOPRESSOR) TABLET PO SCH ×2 (08:43→20:21)
[2020-07-28] MEDS: NS IV 1000 ML 1,000 ML IV SCH ×2 (08:43→16:24)
[2020-07-28] MEDS ORDERED: FUROSEMIDE 40 MG/4 ML INJ (LASIX) IVP ONE (11:45)
[2020-07-28] MEDS: lisINopril 10 MG (PRINIVIL) TABLET PO SCH (12:16)
--- NOTE | 2020-07-28 14:36 | NUR ---
REPORT TAKEN AT THIS TIME FROM CHELSEA BEST FROM 4TH FLOOR WHO IS WORKING IN CARDIAC STEPDOWN UNIT. THIS RN WILL ASSUME CARE OF THIS PATIENT WHEN HE ARRIVES TO ROOM 430-1.
--- NOTE | 2020-07-28 15:34 | Cardiology Progress Note ---
Cardiology SOAP Progress Note Subjective: No cardiac complaints Objective: I&O/Vital Signs 07/28/20 07/28/20 07/28/20 07/28/20 03:43 07:00 08:45 08:54 Temp 36.5 Pulse 90 76 72 Resp 18 15 B/P (MAP) 138/90 151/94 Pulse Ox 95 94 95 O2 Delivery Room Air Room Air Room Air 07/28/20 07/28/20 07/28/20 12:20 13:00 13:41 Temp 35.6 Pulse 74 97 Resp 18 B/P (MAP) 133/91 131/87 Pulse Ox 95 95 O2 Delivery Room Air Room Air 07/28/20 00:00 Intake Total 600 ml Output Total 250 ml Balance 350 ml Weight (Pounds): 200 Weight (Calculated Kilograms): 90.831329 Constitutional: AAO x 3 Extremities: normal range of motion, non-tender, normal inspection Neurologic/Psychiatric: alert, normal mood/affect, oriented x 3 Skin: normal color, warm/dry Results/Procedures: Labs Laboratory Tests 07/28/20 04:15: White Blood Count 8.5, Red Blood Count 3.65L, Hemoglobin 10.2L, Hematocrit 31L, Mean Corpuscular Volume 84, Mean Corpuscular Hemoglobin 28, Mean Corpuscular Hemoglobin Concent 33, Red Cell Distribution Width 12.9, Platelet Count 255, Mean Platelet Volume 10.1, Sodium Level 139, Potassium Level 3.6, Chloride Level 108H, Carbon Dioxide Level 20L, Anion Gap 11, Blood Urea Nitrogen 14, Creatinine 0.90, Estimat Glomerular Filtration Rate > 60, BUN/Creatinine Ratio 16, Glucose Level 92, Calcium Level 8.0L, Corrected Calcium 8.6, Phosphorus Level 3.0, Magnesium Level 1.8, Total Bilirubin 0.5, Aspartate Amino Transf (AST/SGOT) 22, Alanine Aminotransferase (ALT/SGPT) 14, Alkaline Phosphatase 51, Troponin I 1.944*H, B-Type Natriuretic Peptide 673.7H, Total Protein 6.2L, Albumin 3.3 Microbiology 07/24/20 MRSA Screen - Final, Complete MRSA not isolated A/P: Assessment/Dx: Non-STEMI, COVID-19 pneumonia, Acute systolic congestive heart failure, Ischemic cardiomyopathy Plan: Non-STEMI, status post coronary angiography which showed occluded OM1 which is small artery, diffusely diseased. No significant recanalization with balloon angioplasty alone. Due to small artery and being diffusely diseased, left alone. Direct stenting to the mid LAD with drug-eluting stent. Mid LAD had a long severe stenotic segment. LV gram showed LVEF of 35-40 percent. Dual antiplatelet therapy. Statin therapy. COVID-19 pneumonia, on Remdesvir. Acute systolic congestive heart failure, Lasix. Ischemic cardiomyopathy, beta kylah, CHRISTIE inhibitor. Thank you for your consultation. Please call me if you have any questions. Norman Acosta MD, FACP, FACC, FSCAI, FHRS, CCDS Interventional Cardiology Cardiac Electrophysiology Vascular Medicine and Endovascular Interventions Alan ACOSTA MD Jul 28, 2020 15:33
--- NOTE | 2020-07-28 15:40 | NUR ---
PT TRANSFERRED DOWN TO 430 WITH BELONGINGS. CHELSEA REGALADO, GIVEN REPORT.
--- NOTE | 2020-07-28 15:59 | NUR ---
PATIENT TO ROOM 430-1 AT THIS TIME VIA BED. ACCOMPANIED BY ESTEPHANIA RN AND TRACTOR DRILL OPERATOR. REMDESIVIR DUE AT 1500 NOT GIVEN THE PHARMACY HASN'T MADE IT YET. THIS RN DID CALL AND SPOKE WITH JOHNNA IN PHARMACY AND SHE REPORTS TO THIS RN THAT THEY ARE MAKING IT, AND WILL SEND IT TO THE 4TH FLOOR WHEN IS HAS BEEN PREPARED. THIS RN WILL CONT TO MONITOR THIS PATIENT THROUGHOUT THE REMAINDER OF THIS SHIFT.
[2020-07-28] MEDS: REMDESIVIR INJ 100 MG in NS (IVPB) 230 ML IV SCH (16:25)
--- NOTE | 2020-07-28 18:28 | NUR ---
THIS RN REMOVED RIGHT SIDED PRESSURE DRESSING THIS WAS SATURATED WITH BLOOD. PATIENT TOLERATED WELL.
--- NOTE | 2020-07-28 23:00 | NUR ---
PT CONTINUES TO BLEED FROM RIGHT SIDE OF NECK- MANUAL PRESSURE HELD FOR 45 MINUTES BY THIS RN WITH LITTLE IMPROVEMENT. PRESSURE DRESSING ATTEMPTED, BUT AREA CONTINUES TO BLEED. WELFARE INTERVIEWER NOTIFIED FOR ANY ADDITIONAL METHODS TO HELP REDUCE BLEEDING. 2225- DR. HOWELL NOTIFIED- INFORMED BY THIS RN THAT DR. RICHTER HAD PLACED A SUTURE A COUPLE OF DAYS AGO R/T UNCONTROLLED BLEEDING. TOLD DR. HOWELL THAT DR. RICHTER WAS IN HOUSE AND WILLING TO PLACE ANOTHER SUTURE IF SHE WAS OKAY WITH THAT. DR. HOWELL AGREED. 2225- WELFARE INTERVIEWER NOTIFIED DR. RICHTER IN ED TO ASK IF HE COULD PLACE ANOTHER SUTURE TO AREA. DR. RICHTER AGREED. 2255- DR. RICHTER FINISHED PLACING SUTURE TO RIGHT SIDE OF NECK. NO BLEEDING AT THIS TIME. WILL CONTINUE TO MONITOR.
[2020-07-29] MEDS: HYDROcodone/APAP 5 MG/325 MG (LORTAB) TAB PO PRN (03:06)
[2020-07-29 04:50] LABS: ALBUMIN 3.4 GM/DL (3.2-4.5); CHLORIDE 104 MMOL/L (98-107); POTASSIUM 3.5 MMOL/L (3.6-5.0); SODIUM 135 MMOL/L (135-145)
[2020-07-29 04:51] LABS: CALCIUM 8.2 MG/DL (8.5-10.1)
[2020-07-29 04:53] LABS: GLUCOSE 97 MG/DL (70-105); TOTAL PROTEIN 6.4 GM/DL (6.4-8.2)
[2020-07-29 04:54] LABS: BILIRUBIN,TOTAL 0.5 MG/DL (0.1-1.0); CARBON DIOXIDE 19 MMOL/L (21-32)
[2020-07-29 04:56] LABS: ALKALINE PHOSPHATASE 52 U/L (40-136); CREATININE SERUM 0.84 MG/DL (0.60-1.30); GFR ESTIMATED > 60; PHOSPHORUS 2.7 MG/DL (2.3-4.7)
[2020-07-29 04:57] LABS: BUN/CREATININE RATIO 19
[2020-07-29 04:59] LABS: ALANINE AMINOTRANSFERASE 18 U/L (0-55); MAGNESIUM 1.9 MG/DL (1.6-2.4)
[2020-07-29] MEDS: dexAMETHasone 6 MG TAB (DECADRON) PO SCH (05:49)
[2020-07-29] MEDS: meTOprolol TARTRATE 25 MG (LOPRESSOR) TABLET PO SCH (09:01)
[2020-07-29] MEDS: lisINopril 10 MG (PRINIVIL) TABLET PO SCH (09:01)
[2020-07-29] MEDS: CLOPIDOGREL 75 MG (PLAVIX) TABLET PO SCH (09:01)
[2020-07-29] MEDS: ASPIRIN E.C. 81 MG (ECOTRIN) TAB PO SCH (09:01)
[2020-07-29] MEDS: NICOTINE 14 MG (NICODERM) PATCH TD SCH (09:02)
[2020-07-29] MEDS: NICOTINE PATCH REMOVAL TP SCH (09:02)
--- NOTE | 2020-07-29 13:22 | NUR ---
CM/SS visited with patient for discharge planning. CM/SS contacted the patient via phone. Patient reports that he is going to discharge home today. He denies any needs at this time. Patient is attempting to secure a ride home.
[2020-07-29] MEDS ORDERED: CLOP75TA28 PO (13:45)
[2020-07-29] MEDS ORDERED: LISI10TA2 PO (13:45)
[2020-07-29] MEDS ORDERED: ASPI-1238 PO (13:45)
[2020-07-29] MEDS ORDERED: METO-333 PO (13:45)
[2020-07-29] MEDS ORDERED: ATOR80TA76 PO (13:45)
--- NOTE | 2020-07-29 18:08 | Discharge Summary ---
Discharge Summary Hospital Course Was the Problem List Reviewed?: Yes Problems/Dx: (1) COVID-19 Status: Acute (2) Acute respiratory failure Status: Acute Qualifiers: Qualified Codes: J96.01 - Acute respiratory failure with hypoxia (3) NSTEMI (non-ST elevated myocardial infarction) Status: Acute Hospital Course Date of Admission: Jul 24, 2020 at 21:19 Admission Diagnosis : acute respiratory failure due to COVID-19, NSTEMI Family Physician/Provider: No,Local Physician Date of Discharge: 07/29/20 Discharge Diagnosis: acute respiratory failure due to COVID-19, NSTEMI Hospital Course: Keegan Milligan is a 50-year-old male who was admitted with acute respiratory failure due to COVID-19 and non-ST elevation NV. He was treated with Decadron, Remdesivir, and convalescent plasma for COVID. His oxygen saturations remained within normal limits on room air. Cardiology was consulted and performed a left heart catheterization. He had a stent placed in the LAD. He was started on dual antiplatelet therapy and statin. He was also found to have a borderline reduced ejection fraction at 35-40 percent. He was started on a beta kylah and CHRISTIE inhibitor. He should follow-up with cardiology as scheduled. He needs to establish care with a new primary care physician. He was discharged home in stable condition. He was instructed to quarantine for at least 3 more days for a total of 10 days post-symptom onset. The health department should be in contact with him for further recommendations. Labs and Pending Lab Test: Laboratory Tests 07/29/20 04:24: Sodium Level 135, Potassium Level 3.5L, Chloride Level 104, Carbon Dioxide Level 19L, Anion Gap 12, Blood Urea Nitrogen 16, Creatinine 0.84, Estimat Glomerular Filtration Rate > 60, BUN/Creatinine Ratio 19, Glucose Level 97, Calcium Level 8.2L, Corrected Calcium 8.7, Phosphorus Level 2.7, Magnesium Level 1.9, Total Bilirubin 0.5, Aspartate Amino Transf (AST/SGOT) 23, Alanine Aminotransferase (ALT/SGPT) 18, Alkaline Phosphatase 52, Total Protein 6.4, Albumin 3.4 Microbiology 07/24/20 MRSA Screen - Final, Complete MRSA not isolated Home Meds Active Aspirin EC (Aspirin) 81 Mg Tablet.dr 81 Mg PO DAILY 30 Days Lisinopril 10 Mg Tablet 10 Mg PO DAILY 30 Days Metoprolol Tartrate 25 Mg Tablet 25 Mg PO BID 30 Days Atorvastatin Calcium 80 Mg Tablet 80 Mg PO HS 30 Days Clopidogrel (Clopidogrel Bisulfate) 75 Mg Tablet 75 Mg PO DAILY 30 Days Reported Geritol Complete Tablet (Mv, Min #36/Iron,Carbonyl/FA) 1 Each Tablet 1 Each PO DAILY Ibuprofen 200 Mg Tablet 400 Mg PO Q8H PRN Tylenol Extra Strength (Acetaminophen) 500 Mg Tablet 1,000 Mg PO Q8H PRN Assessment/Pt Instructions Take medications as prescribed. You will be required to quarantine once at home. The health department should be in contact with you with further recommendations. Your new medications were sent to [facility]) in [place]. You should follow-up with your primary care physician and cardiology as scheduled. Return with worsening chest pain, shortness of breath, or if you feel like you're getting worse. Discharge Planning: <30 minutes discharge planning Discharge Instructions Discharge Diet: Low Sodium Diet Activity as Tolerated: Yes Consultations cardiology Discharge Physical Examination Vital Signs Vital Signs Date Time Temp Pulse Resp B/P (MAP) Pulse Ox O2 Delivery O2 Flow Rate FiO2 07/29/20 14:50 07/29/20 12:34 80 07/29/20 12:00 36.2 20 95 Room Air 07/27/20 20:20 1.00 General Appearance: No Apparent Distress, WD/WN Respiratory: Lungs Clear, Normal Breath Sounds, No Respiratory Distress Cardiovascular: Regular Rate, Rhythm, No Edema, No Murmur Gastrointestinal: Normal Bowel Sounds, Non Tender, Soft Extremity: Normal Inspection, Non Tender, No Pedal Edema Neurologic/Psychiatric: Alert, Oriented x3, No Motor/Sensory Deficits, Normal Mood/Affect Allergies: Coded Allergies: No Known Drug Allergies (Unverified , 10/06/10) Discharge Summary Date of Admission Jul 24, 2020 at 21:19 Date of Discharge Jul 29, 2020 at 14:55 Discharge Date: Jul 29, 2020 Discharge Time: 14:55 Admission Diagnosis acute respiratory failure due to COVID-19, NSTEMI Consults/Procedures Consulations cardiology Procedures left heart catheterization with coronary stent placement Discharge Diagnosis (1) COVID-19 Status: Acute (2) Acute respiratory failure Status: Acute Qualifiers: Qualified Codes: J96.01 - Acute respiratory failure with hypoxia (3) NSTEMI (non-ST elevated myocardial infarction) Status: Acute Clinical Quality Measures DVT/VTE Risk/Contraindication: Risk Factor Score Per Nursin RFS Level Per Nursing on Admit: 4+=Very High ASHLEY FLANAGAN MD Jul 29, 2020 18:04
--- NOTE | 2020-08-06 11:24 | Cardiac Procedure Note-CS/ASA ---
Pre-Procedure Note Pre-Op Procedure Note H&P Reviewed The H&P was reviewed, patient examined and no changes noted. Date H&P Reviewed: Jul 27, 2020 Time H&P Reviewed: 11:00 Conscious Sedation Pre-Proced Time 11:00 ASA Score 3 For ASA 3 and 4: Consider anesthesia and medical clearance. Also, for patients with a history of failed moderate sedation consider anesthesia. Airway Lungs Heart ASA score ASA 1: a normal healthy patient ASA 2: a patient with a mild systemic disease (mid diabetes, controlled hypertension, obesity ASA 3: a patient with a severe systemic disease that limits activity (angina, COPD, prior Myocardial infarction) ASA 4: a patient with an incapacitating disease that is a constant threat to life (CHF, renal failure) ASA 5: a moribund patient not expected to survive 24 hrs. (ruptured aneurysm) ASA 6: a declared brain- patient whose organs are being harvested. For emergent operations, add the letter E after the classification Mallampati Classification Grade 1 Sedation Plan Analgesia, Amnesia, Plan communicated to team members, Discussed options with patient/fam, Discussed risks with patient/fam The patient is an appropriate candidate to undergo the planned procedure, sedation, and anesthesia. The patient immediately re-assessed prior to indication. Alan HORNE MD Aug 06, 2020 11:24
--- NOTE | 2020-08-16 15:27 | Physician Query Clarification ---
AMRLO ROSEN 08/16/20 1527: PQD17 Principal Diagnosis Principal Diagnosis Document Diagnosis QUESTION: Please specify the condition(s) that was chiefly responsible for o ccasioning the admission to the hospital after study/evaluation based on your medical judgment. Dr. Flanagan, Clinical Indicators/Findings On Admit/Eval/Treatment: Patient admitted with Covid pneumonia and NSTEMI. Covid treated with Remdesivir and Convalescent plasma. NSTEMI treated with drug eluting stent and dilation. Please clarify the condition chiefly responsible for IP admission after study. 1. Covid pneumonia 2. NSTEMI 3. Admitted for both Covid pneumonia and NSTEMI. Both equally treated Source Document: pulmonary and cardiology consults, procedure rpt and DS [employer] [facility] Guide Note [facility] [employer] Guide Note Please remember a lack of response to the above will prompt a phone page by CDI/coding staff. In responding to this query, please exercise your independent professional judgment. The purpose of this communication is to more accurately reflect the complexity of your patients condition. The fact that a question is asked does not imply that any particular answer is desired or expected. Thank you for your timely response to this clarification. Requestors name: Marlo THIS PHYSICIAN QUERY FORM IS A PERMANENT PART OF THE MEDICAL RECORD ASHLEY FLANAGAN MD 08/26/20 1653: PQD17 Principal Diagnosis Question Chief Reason for Admission Aft: NSTEMI MARLO ROSEN Aug 16, 2020 15:27 ASHLEY FLANAGAN MD Aug 26, 2020 16:53
== END 2020-07-29 14:55 | disposition home or self-care (01) | DRG 246 ==
LOC: ICU 21:19 → 4TH 07-25 18:10 → CSD 07-27 12:30 → 4TH 07-28 15:58
PROVIDERS: ADMIT Internal Medicine; ATTEND Internal Medicine
PROC: XW033E5 Introduction of Remdesivir Anti-infective into Peripheral Vein, Percutaneous Approach, New Technology Group 5 (ICD-10-PCS; 2020-07-26)
PROC: XW13325 Transfusion of Convalescent Plasma (Nonautologous) into Peripheral Vein, Percutaneous Approach, New Technology Group 5 (ICD-10-PCS; 2020-07-26)
PROC: 4A023N7 Measurement of Cardiac Sampling and Pressure, Left Heart, Percutaneous Approach (ICD-10-PCS; principal; 2020-07-27)
PROC: B2111ZZ Fluoroscopy of Multiple Coronary Arteries using Low Osmolar Contrast (ICD-10-PCS; 2020-07-27)
PROC: 027034Z Dilation of Coronary Artery, One Artery with Drug-eluting Intraluminal Device, Percutaneous Approach (ICD-10-PCS; 2020-07-27)
PROC: 02703ZZ Dilation of Coronary Artery, One Artery, Percutaneous Approach (ICD-10-PCS; 2020-07-27)
PROC: B2151ZZ Fluoroscopy of Left Heart using Low Osmolar Contrast (ICD-10-PCS; 2020-07-27)
DX: I21.4 Non-ST elevation (NSTEMI) myocardial infarction (principal); U07.1 COVID-19; J96.01 Acute respiratory failure with hypoxia; J12.89 Other viral pneumonia; I50.21 Acute systolic (congestive) heart failure; I11.0 Hypertensive heart disease with heart failure; I25.5 Ischemic cardiomyopathy; I25.10 Atherosclerotic heart disease of native coronary artery without angina pectoris; K21.9 Gastro-esophageal reflux disease without esophagitis; F41.9 Anxiety disorder, unspecified; Z89.021 Acquired absence of right finger(s); Z87.891 Personal history of nicotine dependence
CPT/HCPCS: 36415; 71045; 80048; 80053; 80061; 82728; 82962; 83605; 83735; 83880; 84100; 84145; 84484; 85014; 85018; 85025; 85027; 85379; 85610; 85730; 86900; 86901; 87081; 93005; 93458

== ENCOUNTER → 2020-07-24 | Outpatient (CLI) | payer OTHER, MEDICAID ==
[~2020-07-24] VITALS: Ht 162.5 cm; Wt 80.7 kg
[~2020-07-24] MED LIST changes: +AMLO-251 PO; -AMLO10TA2 PO; +IBUP-2473 PO; +IRON1TAB86 PO; +SIMV20TA26 PO; -SIMV20TA3 PO
== END ==
LOC: GIR 19:11
PROVIDERS: ATTEND Nurse Practitioner Family
DX: U07.1 COVID-19 (principal)
CPT/HCPCS: 84145; 87635

== ENCOUNTER 2020-11-15 22:50 | Inpatient (IN) | payer MEDICAID ==
[~2020-11-15] VITALS: Ht 170.2 cm; Wt 77.8 kg
[~2020-11-15 22:50] MED LIST changes: +ASPI-1238 PO; +ATOR80TA76 PO; +CLOP75TA28 PO; +IBUP-2473 PO; +IRON1TAB86 PO; +LISI10TA25 PO; +METO-333 PO
[2020-11-15] MEDS ORDERED: ONDANSETRON 4 MG/2 ML (SDV) Z0FRAN IV PRN (23:15)
[2020-11-15] MEDS ORDERED: MELATONIN 3 MG TABLET PO PRN (23:15)
[2020-11-15] MEDS ORDERED: NITROGLYCERIN 0.4 MG SL TABS BTL 25'S SL PRN (23:15)
[2020-11-15] MEDS ORDERED: morphine INJ 4 MG/ML 1 ML (VIAL/SYRINGE) IV PRN (23:15)
[2020-11-15] MEDS ORDERED: ANTACID SUSP 30 ML UDC (MYLANTA) PO PRN (23:15)
[2020-11-15] MEDS ORDERED: polyethylene glycoL POWDER 17 GM (MIRALAX) PACK PO PRN (23:15)
[2020-11-15] MEDS ORDERED: ACETAMINOPHEN 325 MG TABLET PO PRN (23:15)
[2020-11-16] VITALS (18 sets, daily range): BP systolic 97–149; BP diastolic 67–119
[2020-11-16 02:12] LABS: HEMOGLOBIN 12.8 g/dL (13.3-17.7); MEAN PLATELET VOLUME 10.3 fL (9.0-12.2); WHITE BLOOD COUNT 6.8 10^3/uL (4.3-11.0)
[2020-11-16 02:25] LABS: PROTHROMBIN TIME PATIENT 13.5 SEC (12.2-14.7)
[2020-11-16 02:27] LABS: ALBUMIN 3.9 GM/DL (3.2-4.5); CHLORIDE 109 MMOL/L (98-107); POTASSIUM 3.7 MMOL/L (3.6-5.0); SODIUM 140 MMOL/L (135-145)
[2020-11-16 02:28] LABS: CALCIUM 8.6 MG/DL (8.5-10.1)
[2020-11-16 02:29] LABS: TRIGLYCERIDES 93 MG/DL (<150); VLDL CHOLESTEROL 19 MG/DL (5-40)
[2020-11-16 02:30] LABS: GLUCOSE 104 MG/DL (70-105); TOTAL PROTEIN 6.8 GM/DL (6.4-8.2)
[2020-11-16 02:31] LABS: BILIRUBIN,TOTAL 0.8 MG/DL (0.1-1.0); CARBON DIOXIDE 20 MMOL/L (21-32)
[2020-11-16 02:33] LABS: ALKALINE PHOSPHATASE 61 U/L (40-136); CREATININE SERUM 1.06 MG/DL (0.60-1.30); GFR ESTIMATED > 60
[2020-11-16 02:34] LABS: CHOLESTEROL 123 MG/DL (< 200)
[2020-11-16 02:35] LABS: BUN/CREATININE RATIO 11
[2020-11-16 02:36] LABS: ALANINE AMINOTRANSFERASE 21 U/L (0-55); HDL CHOLESTEROL 34 MG/DL (40-60)
[2020-11-16] MEDS: ASPIRIN E.C. 81 MG (ECOTRIN) TAB PO SCH (07:57)
[2020-11-16] MEDS ORDERED: NS IV 1000 ML 0 ML ONE (08:36)
[2020-11-16] MEDS: NS IV 1000 ML 1,000 ML IV SCH ×4 (08:43→15:58)
[2020-11-16] MEDS ORDERED: LIDOCAINE 1% INJ 20 ML 20 ML VIAL ONE (08:46)
[2020-11-16] MEDS ORDERED: HEParin (CATH LAB) 2,000 ML IV ONE (08:46)
[2020-11-16] MEDS ORDERED: NS IV 1000 ML 1,000 ML ONE (08:46)
[2020-11-16] MEDS ORDERED: MIDAZOLAM 5 MG/5 ML (VERSED) VIAL ONE (08:46)
[2020-11-16] MEDS ORDERED: fentaNYL INJECTION 100 MCG/2 ML AMP ONE (08:46)
--- NOTE | 2020-11-16 09:15 | History & Physical-Hospitalist ---
History of Present Illness HPI/Chief Complaint Pt is a 50yoCM with a PMH of CAD, HTN, and tobacco abuse who prsented ot the ER due to chest pain. He states his symptoms started a few days ago when he was walking outside but he contributed it to the cold weather. Last night his pain came back and was much more severe and started at rest. He has been off of his medications (antiplatelets) for at least the past week. He decided to seek care in the ER because the symptoms felt similar to his previous heart attack. At [facility] he was found to have a troponin of 2.9 with no EKG changes. He was transferred here for further evaluation. Source: patient Date Seen 11/16/20 Time Seen by a Provider: 08:30 Attending Physician Marvin Linares MD PCP No,Local Physician Referring Physician Date of Admission Nov 16, 2020 at 00:00 Home Medications & Allergies Home Medications Reviewed patient Home Medication Reconciliation performed by pharmacy medication reconciliations operator technician and/or nursing. Patients Allergies have been reviewed. Allergies Allergies Coded Allergies No Known Drug Allergies (Unverified10/06/10) Past Oiwtwhx-Qrdhmh-Gkgpov Hx Past Med/Social Hx: Reviewed Nursing Past Med/Soc Hx Patient Social History Smoking Status: Current Everyday Smoker Type Used: Cigarettes Recent Hopitalizations: No Immunizations Up To Date Tetanus Booster (TDap): Unknown Seasonal Allergies Seasonal Allergies: No Past Medical History Surgeries: Amputation Cardiac: Hypertension Reproductive: No Gastrointestinal: Gastroesophageal Reflux Psychosocial: Anxiety, Violent Behavior History of Blood Disorders: No Family History No Pertinent Family Hx Review of Systems Constitutional: no symptoms reported EENTM: no symptoms reported Respiratory: cough, short of breath Cardiovascular: chest pain; No edema; Hx of Intervention Gastrointestinal: No abdominal pain, No constipation, No diarrhea, No nausea, No vomiting Genitourinary: No dysuria, No frequency Musculoskeletal: other (arm pain) Skin: no symptoms reported Psychiatric/Neurological: No Symptoms Reported Physical Exam Physical Exam Vital Signs Vital Signs - First Documented 11/16/20 11/16/20 11/16/20 00:41 04:00 09:27 Temp 36.1 Pulse 90 Resp 16 B/P (MAP) 117/67 (84) Pulse Ox 96 O2 Delivery Nasal Cannula O2 Flow Rate 2.00 FiO2 24 Capillary Refill : Height, Weight, BMI Height: 5'5.00" Weight: 200lbs. oz. 90.283626eg; 27.30 BMI Method:Stated General Appearance: No Apparent Distress, WD/WN Eyes: Right Eye Normal Inspection, Right Eye PERRL HEENT: PERRL/EOMI, Moist Mucous Membranes Neck: Normal Inspection, Supple Respiratory: Chest Non Tender, Lungs Clear, No Accessory Muscle Use, No Respiratory Distress Cardiovascular: Regular Rate, Rhythm, No Edema, Normal Peripheral Pulses Gastrointestinal: Normal Bowel Sounds, Non Tender, Soft; No Distended, No Guarding Back: Normal Inspection Extremity: Normal Inspection, No Calf Tenderness, No Pedal Edema Neurologic/Psychiatric: Alert, Oriented x3, Normal Mood/Affect; No Aphasia, No Facial Droop Skin: Normal Color, Warm/Dry Results Results/Procedures Labs Laboratory Tests 11/16/20 01:55 Patient resulted labs reviewed. Assessment/Plan Admission Diagnosis NSTEMI Admission Status: Inpatient Order (span 2 midnights) Reason for Inpatient Admission: see below Assessment and Plan NSTEMI CAD troponin 2.96 at outside facility Up to 5.752 this morning has been off of his DAPT Received full dose aspirin, 300mg of Plavix, and therapeutic Lovenox last night at [facility] Cardiology consulted, appreciate recs Plan for cath this AM HTN BP on the low side this morning Trend Tobacco abuse Recommended cessation, patient reports not ready to quit MARVIN LINARES MD Nov 16, 2020 09:15
--- NOTE | 2020-11-16 09:34 | Consultation-Cardiology ---
HPI-Cardiology Cardiology Consultation Date of Consultation 11/16/20 Date of Admission Time Seen by Provider: 09:30 Indication: chest pain HPI 50 years old gentleman with extensive severe coronary artery disease, had a stent placed in July by Dr. Acosta. Patient reported that he ran out of his medication for over a week. Started his medications back yesterday. Came into the emergency room due to active chest pain, had T-wave inversion in the anterior leads with elevation in troponin. On my evaluation he was feeling better, denied any active pain, no shortness of breath, no palpitation, no syncope or near syncopal episodes Home Medications & Allergies Allergies: Coded Allergies: No Known Drug Allergies (Unverified , 10/06/10) Home Medication List Reviewed: Yes TBY-Eptrsj-Evrhun Hx Patient Social History Smoking Status: Current Everyday Smoker Type Used: Cigarettes Recent Hopitalizations: No Have you traveled recently?: No Alcohol Use?: No Immunizations Up To Date Tetanus Booster (TDap): Unknown Past Medical History Discussed below Family Medical History Significant Family History: No Pertinent Family Hx Family Medical Hx Noncontributory Review of Systems-General Review of Systems Constitutional: no symptoms reported, see HPI EENTM: see HPI, no symptoms reported Respiratory: see HPI, cough; No dyspnea on exertion, No hemoptysis, No orthopnea, No phlegm; short of breath; No stridor, No wheezing, No other Cardiovascular: see HPI, chest pain; No edema; Hx of Intervention; No palpitations, No syncope, No vascular heart diseas, No other Gastrointestinal: no symptoms reported, see HPI; No abdominal pain, No constipation, No diarrhea, No nausea, No vomiting Genitourinary: no symptoms reported, see HPI; No dysuria, No frequency Musculoskeletal: no symptoms reported, see HPI, other (arm pain) Skin: no symptoms reported, see HPI Psychiatric/Neurological: No Symptoms Reported, See HPI Reviewed Test Results Reviewed Test Results Lab Laboratory Tests Test 11/16/20 01:55 Range/Units White Blood Count 6.8 4.3-11.0 10^3/uL Red Blood Count 4.68 4.30-5.52 10^6/uL Hemoglobin 12.8 L 13.3-17.7 g/dL Hematocrit 38 L 40-54 % Mean Corpuscular Volume 82 80-99 fL Mean Corpuscular Hemoglobin 27 25-34 pg Mean Corpuscular Hemoglobin Concent 34 32-36 g/dL Red Cell Distribution Width 13.3 10.0-14.5 % Platelet Count 232 130-400 10^3/uL Mean Platelet Volume 10.3 9.0-12.2 fL Prothrombin Time 13.5 12.2-14.7 SEC INR Comment 1.0 0.8-1.4 Sodium Level 140 135-145 MMOL/L Potassium Level 3.7 3.6-5.0 MMOL/L Chloride Level 109 H 98-107 MMOL/L Carbon Dioxide Level 20 L 21-32 MMOL/L Anion Gap 11 5-14 MMOL/L Blood Urea Nitrogen 12 7-18 MG/DL Creatinine 1.06 0.60-1.30 MG/DL Estimat Glomerular Filtration Rate > 60 BUN/Creatinine Ratio 11 Glucose Level 104 70-105 MG/DL Calcium Level 8.6 8.5-10.1 MG/DL Corrected Calcium 8.7 8.5-10.1 MG/DL Total Bilirubin 0.8 0.1-1.0 MG/DL Aspartate Amino Transf (AST/SGOT) 56 H 5-34 U/L Alanine Aminotransferase (ALT/SGPT) 21 0-55 U/L Alkaline Phosphatase 61 40-136 U/L Troponin I 5.752 *H <0.028 NG/ML Total Protein 6.8 6.4-8.2 GM/DL Albumin 3.9 3.2-4.5 GM/DL Triglycerides Level 93 <150 MG/DL Cholesterol Level 123 < 200 MG/DL LDL Cholesterol Direct 77 1-129 MG/DL VLDL Cholesterol 19 5-40 MG/DL HDL Cholesterol 34 L 40-60 MG/DL Physical Exam Physical Exam Vital Signs Vital Signs - First Documented 11/16/20 11/16/20 11/16/20 00:41 04:00 09:27 Temp 36.1 Pulse 90 Resp 16 B/P (MAP) 117/67 (84) Pulse Ox 96 O2 Delivery Nasal Cannula O2 Flow Rate 2.00 FiO2 24 Capillary Refill : Height, Weight, BMI Height: 5'5.00" Weight: 200lbs. oz. [id number]; 27.30 BMI Method:Stated General Appearance: No Apparent Distress, WD/WN Eyes: Right Eye Normal Inspection, Right Eye PERRL HEENT: PERRL/EOMI, Moist Mucous Membranes Neck: Normal Inspection, Supple Respiratory: Chest Non Tender, Lungs Clear, No Accessory Muscle Use, No Respiratory Distress Cardiovascular: Regular Rate, Rhythm, No Edema, Normal Peripheral Pulses Gastrointestinal: Normal Bowel Sounds, Non Tender, Soft; No Distended, No Guarding Back: Normal Inspection Extremity: Normal Inspection, No Calf Tenderness, No Pedal Edema Neurologic/Psychiatric: Alert, Oriented x3, Normal Mood/Affect; No Aphasia, No Facial Droop Skin: Normal Color, Warm/Dry Lymphatic: No Adenopathy A/P-Cardiology Admission Diagnosis Non-ST elevation myocardial infarction Coronary artery disease Congestive heart failure chronic left ventricular systolic dysfunction, ischemic cardiomyopathy Hypertension Assessment/Plan Non-ST elevation myocardial infarction, probably due to noncompliance with medication. Patient was educated in length about compliance with medication, I will proceed with cardiac catheterization possible PTCA Coronary artery disease, status post deployment of a long stent in the mid LAD using CARMINA 2.25 x [address] Acosta in July 2020, patient was educated on compliance with aspirin and Plavix and the importance of taking aspirin and Plavix Congestive heart failure, chronic compensated left ventricular systolic dysfunction, ischemic cardiomyopathy, reporting ejection fraction 35-40 percent in July 2020. I will repeat 2-D echo Hypertension, restart home medication monitor blood pressure Hyperlipidemia, restart statin Tobaccoism, educated on smoking cessation Noncompliance with medication, was not taking aspirin and Plavix, educated on the importance of taking these medications Addendum Cardiac catheterization showed patent stent, moderate to severe lesion proximal to the stent, severe stenosis at the ostial diagonal artery that is very small, subtotal occlusion of the obtuse marginal branch that was present in July 2020, moderate severe lesions in the midright coronary artery, patient does not have obstructive lesions, I am concerned about his noncompliance and hesitant to place a new overlapping drug-eluting stent at this point. I will maximize medical therapy. Left ventricular systolic function is severely depressed with ejection fraction 10-15 percent, severely elevated left ventricular end-diastolic pressure. I am starting Coreg and losartan instead of metoprolol and lisinopril. Planning to switch him to Entresto on Wednesday, need to be off CHRISTIE inhibitor for 48 hours at least. Starting Lasix IV due to elevated left ventricular end-diastolic pressure YVETTE ISSA MD Nov 16, 2020 09:34
--- NOTE | 2020-11-16 09:35 | Cardiac Procedure Note-CS/ASA ---
Pre-Procedure Note Pre-Op Procedure Note H&P Reviewed The H&P was reviewed, patient examined and no changes noted. Date H&P Reviewed: Nov 16, 2020 Time H&P Reviewed: 09:35 Conscious Sedation Pre-Proced Time 09:35 ASA Score 3 For ASA 3 and 4: Consider anesthesia and medical clearance. Also, for patients with a history of failed moderate sedation consider anesthesia. Airway Lungs Heart ASA score ASA 1: a normal healthy patient ASA 2: a patient with a mild systemic disease (mid diabetes, controlled hypertension, obesity x ASA 3: a patient with a severe systemic disease that limits activity (angina, COPD, prior Myocardial infarction) ASA 4: a patient with an incapacitating disease that is a constant threat to life (CHF, renal failure) ASA 5: a moribund patient not expected to survive 24 hrs. (ruptured aneurysm) ASA 6: a declared brain- patient whose organs are being harvested. For emergent operations, add the letter E after the classification Mallampati Classification Grade 3 Sedation Plan Analgesia, Amnesia, Plan communicated to team members, Discussed options with patient/fam, Discussed risks with patient/fam The patient is an appropriate candidate to undergo the planned procedure, sedation, and anesthesia. The patient immediately re-assessed prior to indication. YVETTE ISSA MD Nov 16, 2020 09:35
[2020-11-16] MEDS ORDERED: RT-ALBUTEROL/IPRATROPIUM 3 ML (DUONEB) VIAL INH PRN (09:45)
[2020-11-16] MEDS ORDERED: PATIENT MAY USE OWN MEDS, ALL PO SCH (10:30)
[2020-11-16] MEDS ORDERED: CLOPIDOGREL 300 MG (PLAVIX) TABLET PO ONE ×2 (10:30→14:09)
--- NOTE | 2020-11-16 10:37 | Cardiac Cath Report ---
Cardiac Cath Report Physician (s)/[place] Repairer (s) Physician YVETTE ISSA MD Pre-Procedure Diagnosis Pre-Procedure Diagnosis: non-ST elevation myocardial infarction Post-Procedure Note Procedure Start Date: Nov 16, 2020 Name of Procedure: Left heart catheterization Findings/Procedure Note PROCEDURE NOTE: 50 years old gentleman with extensive cardiac history, had a stent placed in July 2020, return with non-ST elevation myocardial infarction reported that he has not taken his Lasix for at least a week. He still an active smoker. Decided to proceed with urgent cardiac catheterization possible PTCA. After explaining the procedure to the patient, all pros and cons were explained, all questions were answered. The patient signed the consent and then he was placed on the cardiac catheterization laboratory. Groin was prepped SL fashion local anesthesia was used. Sheath placed in the right femoral artery. Andreas right and left catheter were used to access the coronary system. Pigtail was used to access the left ventricular cavity. Left ventriculogram was done At the end of the procedure the sheath was removed. Closure device was deployed FINDINGS: Hemodynamics LV 110/39, end-diastolic pressure 39 Aorta 115/19 mean of 41 ANATOMY: Left Main is free of obstructive disease Left Anterior Descending is small to moderate in size, stent is patent in the mid LAD, proximal to the stent there is an area of moderate to severe stenosis, distal LAD has severe lesion, diagonal artery is a hairline artery with severe ostial stenosis and slow flow Left Circumflex is small to moderate in size, obtuse marginal branch is subtotally occluded at the ostium, attempt for balloon angioplasty in July has failed due to the fact that the artery is very small. Right Coronory Artery is dominant artery, has superior origin. Tortuous artery with 2 lesion that are moderate to severe, nonobstructive disease LV Gram was done showing dilated left ventricle, apical akinesia with diffuse left ventricular hypokinesia, questionable apical thrombus, ejection fraction 10-15 percent CONCLUSION: 1. Severe multi-vessel coronary artery disease including severe stenosis at the ostial diagonal artery that is a hairline artery, subtotal occlusion of the obtuse marginal branch that is a hairline artery, not amendable to intervention 2. Patent stent in the mid to distal LAD, proximal to the stent there is an area of moderate to severe stenosis, nonobstructive lesion, at the far distal portion of the LAD there is an area of severe stenosis, very small artery not amendable to intervention 3. Tortuous right coronary artery with 2 moderate to severe lesions nonobstructive disease 4. Dilated left ventricle with severe diffuse left ventricular hypokinesia, akinesia of the apex, a suitable thrombus in the apex, ejection fraction 10-15 percent DISCUSSION AND RECOMMENDATION: I recommend conservative management due to the fact that the patient is noncompliant. The artery of the diagonal and obtuse marginal artery not amendable to intervention, the lesion proximal to the stent in the LAD is nonobstructive lesion at this point, putting and overlaps stent increase the risk of stent thrombosis in case patient continued to be noncompliant I r ecommend maximizing medical therapy, patient was started on aspirin and Plavix. I'm switching him from metoprolol to Coreg and from lisinopril to losartan and planning to advance treatment to [facility], patient will need a LifeVest, started on aggressive diuresis Anesthesia Type: Conscious Sedation Estimated blood loss (mL): 25 ml Contrast Amount: 47 ml Total Radiation Dose: 456 mGy Post-Procedure Diagnosis Post-operative diagnosis: Non-ST elevation myocardial infarction Coronary artery disease Congestive heart failure, acute left ventricular systolic dysfunction, ischemic cardiomyopathy Hypertension Hyperlipidemia Tobaccoism YVETTE ISSA MD Nov 16, 2020 10:37
[2020-11-16] MEDS: FUROSEMIDE 40 MG/4 ML INJ (LASIX) IVP SCH (15:58)
[2020-11-16] MEDS: CARVEDILOL 6.25 MG (COREG) TAB PO SCH (18:28)
[2020-11-17] VITALS (9 sets, daily range): BP systolic 100–126; BP diastolic 59–101
[2020-11-17 03:12] LABS: HEMOGLOBIN 13.9 g/dL (13.3-17.7); MEAN PLATELET VOLUME 10.4 fL (9.0-12.2); WHITE BLOOD COUNT 6.7 10^3/uL (4.3-11.0)
[2020-11-17 03:35] LABS: ALBUMIN 3.8 GM/DL (3.2-4.5); CHLORIDE 110 MMOL/L (98-107); POTASSIUM 3.4 MMOL/L (3.6-5.0); SODIUM 141 MMOL/L (135-145)
[2020-11-17 03:36] LABS: CALCIUM 8.3 MG/DL (8.5-10.1)
[2020-11-17 03:37] LABS: GLUCOSE 97 MG/DL (70-105); TOTAL PROTEIN 6.8 GM/DL (6.4-8.2); TRIGLYCERIDES 106 MG/DL (<150); VLDL CHOLESTEROL 21 MG/DL (5-40)
[2020-11-17 03:38] LABS: CARBON DIOXIDE 20 MMOL/L (21-32)
[2020-11-17 03:39] LABS: BILIRUBIN,TOTAL 1.3 MG/DL (0.1-1.0)
[2020-11-17 03:41] LABS: ALKALINE PHOSPHATASE 65 U/L (40-136); CREATININE SERUM 0.94 MG/DL (0.60-1.30); GFR ESTIMATED > 60
[2020-11-17 03:42] LABS: BUN/CREATININE RATIO 10; CHOLESTEROL 128 MG/DL (< 200)
[2020-11-17 03:43] LABS: HDL CHOLESTEROL 33 MG/DL (40-60)
[2020-11-17 03:44] LABS: ALANINE AMINOTRANSFERASE 20 U/L (0-55)
[2020-11-17] MEDS: NS IV 1000 ML 1,000 ML IV SCH ×2 (05:02→05:03)
[2020-11-17] MEDS: FUROSEMIDE 40 MG/4 ML INJ (LASIX) IVP SCH ×2 (06:12→16:50)
[2020-11-17] MEDS: CARVEDILOL 6.25 MG (COREG) TAB PO SCH ×2 (09:39→21:06)
[2020-11-17] MEDS: PANTOPRAZOLE 40 MG (PROTONIX) TAB PO SCH (09:39)
[2020-11-17] MEDS: CLOPIDOGREL 75 MG (PLAVIX) TABLET PO SCH (09:39)
[2020-11-17] MEDS: KCL 20 MEQ TAB (K-DUR) PO SCH (09:39)
[2020-11-17] MEDS: LOSARTAN 25 MG (COZAAR) TAB PO SCH (09:40)
[2020-11-17] MEDS: ASPIRIN E.C. 81 MG (ECOTRIN) TAB PO SCH (09:40)
--- NOTE | 2020-11-17 10:04 | Progress Note - Hospitalist ---
Subjective HPI/CC On Admission Date Seen by Provider: Nov 17, 2020 Time Seen by Provider: 10:01 Pt is a 50yoCM with a PMH of CAD, HTN, and tobacco abuse who prsented ot the ER due to chest pain. He states his symptoms started a few days ago when he was walking outside but he contributed it to the cold weather. Last night his pain c halle back and was much more severe and started at rest. He has been off of his medications (antiplatelets) for at least the past week. He decided to seek care in the ER because the symptoms felt similar to his previous heart attack. At [place] he was found to have a troponin of 2.9 with no EKG changes. He was transferred here for further evaluation. Subjective/Events-last exam Pt reports doing well. No further chest pain. Discussed EF noted on cath yesterday. Objective Exam Vital Signs Vital Signs Date Time Temp Pulse Resp B/P (MAP) Pulse Ox O2 Delivery O2 Flow Rate FiO2 11/17/20 08:09 99 Room Air 11/17/20 08:00 37.1 105 18 118/101 (107) 11/16/20 14:30 1.00 11/16/20 09:27 24 Capillary Refill : Less Than 3 Seconds General Appearance: No Apparent Distress, WD/WN Respiratory: Lungs Clear, No Respiratory Distress Cardiovascular: Regular Rate, Rhythm, No Murmur Gastrointestinal: Normal Bowel Sounds, Soft Neurologic/Psychiatric: Alert, Oriented x3 Results/Procedures Lab Laboratory Tests 11/17/20 02:45 Patient resulted labs reviewed. Assessment/Plan Assessment and Plan Assess & Plan/Chief Complaint NSTEMI CAD s/p cath yesterday with CAD that was no amenable to intervention had been off of his DAPT Continue ASA and Plavix Cardiology consulted EF of 10-15% with LV thrombus noted, management per Cardiology Dr Wills ordered Lifevest and plans to start on Entresto tomorrow Lipitor Coreg and Losartan Continue Lasix HTN BP normalized, trend Tobacco abuse Recommended cessation, patient reports not ready to quit MARVIN HOWELL MD Nov 17, 2020 10:04
--- NOTE | 2020-11-17 10:21 | Cardiology Progress Note ---
Subjective Date Seen by Provider: Nov 17, 2020 Time Seen by Provider: 10:17 Subjective/Events-last exam Patient is laying down in bed, feeling better today. No new complaint Review of Systems General: No Chills, No Night Sweats; Fatigue; No Malaise, No Appetite, No Other HEENT: No Head Aches, No Visual Changes, No Eye Pain, No Ear Pain, No Dysphasia, No Sinus Congestion, No Post Nasal Drip, No Sore Throat, No Other Pulmonary: No Dyspnea, No Cough, No Pleuritic Chest Pain, No Other Cardiovascular: No: Chest Pain, Palpitations, Orthopnea, Paroxysmal Noc. Dyspnea, Edema, Lt Headedness, Other Objective-Cardiology Exam Last Set of Vital Signs Vital Signs 11/16/20 11/16/20 11/17/20 11/17/20 09:27 14:30 08:00 08:09 Temp 37.1 Pulse 105 Resp 18 B/P (MAP) 118/101 (107) Pulse Ox 99 O2 Delivery Room Air O2 Flow Rate 1.00 FiO2 24 Capillary Refill : Less Than 3 Seconds I&O Intake and Output 11/17/20 00:00 Intake Total 550 ml Output Total 3695 ml Balance -3145 ml Intake Oral 550 ml Output Urine Total 3695 ml # Voids 2 Daily Weight Change No General: Alert, Oriented X3, Cooperative HEENT: Atraumatic, PERRLA Neck: Supple, No JVD, No Thyromegaly Lungs: Clear to Auscultation, Normal Air Movement Heart: Regular Rate, Normal S1, Normal S2, Other (S3, systolic murmur) Abdomen: Normal Bowel Sounds, Soft, No Tenderness, No Hepatosplenomegaly, No Masses Extremities: No Clubbing, No Cyanosis, No Edema, Normal Pulses, No Tenderness/Swelling Skin: No Rashes, No Breakdown, No Significant Lesion Neuro: Normal Gait, Normal Speech, Strength at 5/5 X4 Ext, Normal Tone, Sensation Intact Psych/Mental Status: Mental Status NL, Mood NL Results Lab Laboratory Tests 11/17/20 02:45 A/P-Cardiology Admission Diagnosis Non-ST elevation myocardial infarction Coronary artery disease Congestive heart failure chronic left ventricular systolic dysfunction, ischemic cardiomyopathy Hypertension Assessment/Plan Non-ST elevation myocardial infarction, small vessel disease, cardiac catheterization was carried out on November 16, 2020. Patient was educated on compliance with medication Coronary artery disease, status post deployment of a long stent in the mid LAD using CARMINA 2.25 x [address] Acosta in July 2020, cardiac catheterization done on November 16, 2020 showing patent stent in the LAD moderate severe lesion proximal to the stent and at the distal LAD, severe stenosis at the ostium of the diagonal artery very small artery, subtotal occlusion of obtuse marginal branch that failed intervention in July [address] Acosta. Moderate severe lesion in the midright coronary artery, medical therapy is recommended, continue to maximize treatment, educated about compliance with medication Congestive heart failure, acute on chronic left ventricular systolic dysfunction, deterioration the left ventricular function with ejection fraction 10-20 percent, started on Coreg and losartan, planning to switch to Entresto tomorrow. Educated on compliance with medication, continue with IV Lasix. High risk for sudden , awaiting for LifeVest Hypertension, started on Coreg and losartan, monitor blood pressure Hyperlipidemia, restart statin Tobaccoism, educated on smoking cessation Noncompliance with medication, we had a long discussion about taking his medication and smoking cessation, patient appeared to be receptive and reported that he will try to quit smoking YVETTE ISSA MD Nov 17, 2020 10:21 am
[2020-11-18 00:09] VITALS: BP 102/66
[2020-11-18 03:38] VITALS: BP 119/82
[2020-11-18 06:16] LABS: CHLORIDE 104 MMOL/L (98-107); POTASSIUM 3.5 MMOL/L (3.6-5.0); SODIUM 138 MMOL/L (135-145)
[2020-11-18 06:17] LABS: CALCIUM 8.9 MG/DL (8.5-10.1); GLUCOSE 92 MG/DL (70-105)
[2020-11-18 06:19] LABS: CARBON DIOXIDE 21 MMOL/L (21-32)
[2020-11-18 06:21] LABS: CREATININE SERUM 1.15 MG/DL (0.60-1.30); GFR ESTIMATED > 60
[2020-11-18 06:22] LABS: BUN/CREATININE RATIO 11
[2020-11-18] MEDS: KCL 20 MEQ TAB (K-DUR) PO SCH (06:29)
[2020-11-18] MEDS: FUROSEMIDE 40 MG/4 ML INJ (LASIX) IVP SCH (06:29)
[2020-11-18 08:00] VITALS: BP 117/63
[2020-11-18] MEDS: ASPIRIN E.C. 81 MG (ECOTRIN) TAB PO SCH (08:43)
[2020-11-18] MEDS: LOSARTAN 25 MG (COZAAR) TAB PO SCH (08:43)
[2020-11-18] MEDS: CARVEDILOL 6.25 MG (COREG) TAB PO SCH (08:43)
[2020-11-18] MEDS: CLOPIDOGREL 75 MG (PLAVIX) TABLET PO SCH (08:43)
[2020-11-18] MEDS: PANTOPRAZOLE 40 MG (PROTONIX) TAB PO SCH (08:43)
--- NOTE | 2020-11-18 09:47 | Cardiology Progress Note ---
Subjective Date Seen by Provider: Nov 18, 2020 Time Seen by Provider: 08:50 Subjective/Events-last exam Patient is in bed, denies any chest pain Review of Systems General: No Chills, No Night Sweats, No Fatigue, No Malaise, No Appetite, No Other HEENT: No Head Aches, No Visual Changes, No Eye Pain, No Ear Pain, No Dysphasia, No Sinus Congestion, No Post Nasal Drip, No Sore Throat, No Other Pulmonary: No Dyspnea, No Cough, No Pleuritic Chest Pain, No Other Cardiovascular: No: Chest Pain, Palpitations, Orthopnea, Paroxysmal Noc. Dyspnea, Edema, Lt Headedness, Other Objective-Cardiology Exam Last Set of Vital Signs Vital Signs 11/16/20 11/16/20 11/18/20 09:27 14:30 11:34 Temp 36.5 Pulse 87 Resp 18 B/P (MAP) 94/67 (76) Pulse Ox 93 O2 Delivery Room Air O2 Flow Rate 1.00 FiO2 24 Capillary Refill : Less Than 3 Seconds I&O Intake and Output 11/18/20 00:00 Intake Total 2680 ml Output Total 200 ml Balance 2480 ml Intake Oral 1680 ml IV Total 1000 ml Output Urine Total 200 ml # Voids 4 # Bowel Movements 1 General: Alert, Oriented X3, Cooperative HEENT: Atraumatic, PERRLA Neck: Supple, No JVD, No Thyromegaly Lungs: Clear to Auscultation, Normal Air Movement Heart: Regular Rate, Normal S1, Normal S2, Other (S3, systolic murmur) Abdomen: Normal Bowel Sounds, Soft, No Tenderness, No Hepatosplenomegaly, No Masses Extremities: No Clubbing, No Cyanosis, No Edema, Normal Pulses, No Tenderness/Swelling Skin: No Rashes, No Breakdown, No Significant Lesion Neuro: Normal Gait, Normal Speech, Strength at 5/5 X4 Ext, Normal Tone, Sensation Intact Psych/Mental Status: Mental Status NL, Mood NL Results Lab Laboratory Tests 11/18/20 05:32 A/P-Cardiology Admission Diagnosis Non-ST elevation myocardial infarction Coronary artery disease Congestive heart failure chronic left ventricular systolic dysfunction, ischemic cardiomyopathy Hypertension Assessment/Plan Non-ST elevation myocardial infarction, small vessel disease, cardiac catheterization was carried out on November 16, 2020. Patient was educated on compliance with medication Coronary artery disease, status post deployment of a long stent in the mid LAD using CARMINA 2.25 x [address] Acosta in July 2020, cardiac catheterization done on November 16, 2020 showing patent stent in the LAD moderate severe lesion proximal to the stent and at the distal LAD, severe stenosis at the ostium of the diagonal artery very small artery, subtotal occlusion of obtuse marginal branch that failed intervention in July [address] Acosta. Moderate severe lesion in the midright coronary artery, medical therapy is recommended, continue to maximize treatment, educated about compliance with medication Congestive heart failure, acute on chronic left ventricular systolic dysfunction, deterioration the left ventricular function with ejection fraction 10-20 percent, started on Coreg and losartan, planning to switch to Entresto. Educated on compliance with medication High risk for sudden , awaiting for LifeVest Hypertension, started on Coreg and losartan, monitor blood pressure Hyperlipidemia, restart statin Tobaccoism, educated on smoking cessation Noncompliance with medication, we had a long discussion about taking his medication and smoking cessation, patient appeared to be receptive and reported that he will try to quit smoking Patient was seen and evaluated with Mariam, examination performed, management plan was discussed, agree with the current scribed note, I made few changes to the note using Italic font Patient was seen and evaluated, discussed compliance with medication, I'll arrange for follow-up as an outpatient, switching Lasix to oral, continue on Coreg and switch to losartan to Entresto. Patient has a LifeVest delivered to his room. Arrange for follow-up in 2-4 weeks MARIAM ZIMMERMAN Nov 18, 2020 9:47 am YVETTE ISSA MD Nov 18, 2020 11:52 am
[2020-11-18] MEDS ORDERED: FURO-124 PO (11:24)
[2020-11-18] MEDS ORDERED: SACU1TAB2 PO (11:24)
[2020-11-18] MEDS ORDERED: POTA20TA8 PO (11:24)
[2020-11-18] MEDS ORDERED: PANT40TA52 PO (11:24)
[2020-11-18] MEDS ORDERED: CARV6.252 PO (11:24)
[2020-11-18 11:34] VITALS: BP 94/67
--- NOTE | 2020-11-18 12:42 | Discharge Summary ---
Discharge Summary Hospital Course Was the Problem List Reviewed?: Yes Problems/Dx: (1) NSTEMI (non-ST elevated myocardial infarction) Status: Acute (2) HFrEF (heart failure with reduced ejection fraction) Status: Acute (3) Ischemic cardiomyopathy Status: Acute Hospital Course Date of Admission: Nov 16, 2020 at 00:00 Admission Diagnosis: NSTEMI Family Physician/Provider: Ashley Romero Physician Date of Discharge: 11/18/20 Discharge Diagnosis: NSTEMI, ischemic cardiomyopathy Hospital Course: Keegan Milligan is a 50 year old male who was admitted with NSTEMI. He has a history of coronary artery disease and stent placement. He had not been taking his antiplatelet medications. Cardiac catheterization was performed which revealed several lesions, most not amenable to intervention. Intervention was deferred due to his history of noncompliance. An echocardiogram was performed and he was found to have a ischemic cardiomyopathy with ejection fraction 10-15 percent. He was started on Entresto. He was continued on aspirin and Plavix. He is continued on Coreg and Lipitor. He was recommended to quit smoking immediately. He needs to establish care with a primary care physician. He should follow-up with cardiology as scheduled. He was set up with a LifeVest prior to discharge. Labs and Pending Lab Test: Laboratory Tests 11/18/20 05:32: Sodium Level 138, Potassium Level 3.5L, Chloride Level 104, Carbon Dioxide Level 21, Anion Gap 13, Blood Urea Nitrogen 13, Creatinine 1.15, Estimat Glomerular Filtration Rate > 60, BUN/Creatinine Ratio 11, Glucose Level 92, Calcium Level 8.9 Home Meds Active Lasix (Furosemide) 40 Mg Tablet 40 Mg PO DAILY 30 Days Entresto 24 mg-26 mg Tablet (Sacubitril/Valsartan) 1 Each Tablet 1 Tab PO BID 30 Days Pantoprazole Sodium 40 Mg Tablet.dr 40 Mg PO DAILY 30 Days Klor-Con M20 (Potassium Chloride) 20 Meq Tab.er.prt 20 Meq PO DAILY 30 Days Carvedilol 6.25 Mg Tablet 6.25 Mg PO BID 30 Days Aspirin EC (Aspirin) 81 Mg Tablet.dr 81 Mg PO DAILY 30 Days Lisinopril 10 Mg Tablet 10 Mg PO DAILY 30 Days Metoprolol Tartrate 25 Mg Tablet 25 Mg PO BID 30 Days Atorvastatin Calcium 80 Mg Tablet 80 Mg PO HS 30 Days Clopidogrel (Clopidogrel Bisulfate) 75 Mg Tablet 75 Mg PO DAILY 30 Days Reported Geritol Complete Tablet (Mv, Min #36/Iron,Carbonyl/FA) 1 Each Tablet 1 Each PO DAILY Ibuprofen 200 Mg Tablet 400 Mg PO Q8H PRN Tylenol Extra Strength (Acetaminophen) 500 Mg Tablet 1,000 Mg PO Q8H PRN Assessment/Pt Instructions Take medications as prescribed. Wear your LifeVest. Follow up with cardiology. Establish care with a primary care physician. Return with worsening chest pain, shortness of breath, or if you feel like you're getting worse. Discharge Planning: >30 minutes discharge planning Discharge Instructions Discharge Diet: Low Sodium Diet Activity as Tolerated: Yes Consultations Cardiology Discharge Physical Examination Vital Signs Vital Signs Date Time Temp Pulse Resp B/P (MAP) Pulse Ox O2 Delivery O2 Flow Rate FiO2 11/18/20 11:34 36.5 87 18 94/67 (76) 93 Room Air 11/16/20 14:30 1.00 11/16/20 09:27 24 General Appearance: No Apparent Distress, WD/WN Respiratory: Lungs Clear, Normal Breath Sounds, No Respiratory Distress Cardiovascular: Regular Rate, Rhythm, No Edema, No Murmur Gastrointestinal: Normal Bowel Sounds, Non Tender, Soft Extremity: Normal Inspection, Non Tender, No Pedal Edema Skin: Normal Color, Warm/Dry Neurologic/Psychiatric: Alert, Oriented x3, No Motor/Sensory Deficits, Normal Mood/Affect Allergies: Coded Allergies: No Known Drug Allergies (Unverified , 10/06/10) Copy Copies To 1: [facility] Discharge Summary Date of Admission Nov 16, 2020 at 00:00 Date of Discharge Discharge Date: Nov 18, 2020 Discharge Time: 09:50 Admission Diagnosis NSTEMI Consults/Procedures Consulations cardiology Procedures left heart catheterization Discharge Diagnosis (1) NSTEMI (non-ST elevated myocardial infarction) Status: Acute (2) HFrEF (heart failure with reduced ejection fraction) Status: Acute (3) Ischemic cardiomyopathy Status: Acute ASHLEY FLANAGAN MD Nov 18, 2020 12:35
== END 2020-11-18 13:45 | disposition home or self-care (01) | DRG 280 ==
LOC: CSD 11-16 → 4TH 11-17 13:41
PROVIDERS: ADMIT Family Medicine; ATTEND Family Medicine
PROC: 4A023N7 Measurement of Cardiac Sampling and Pressure, Left Heart, Percutaneous Approach (ICD-10-PCS; principal; 2020-11-16)
PROC: B2111ZZ Fluoroscopy of Multiple Coronary Arteries using Low Osmolar Contrast (ICD-10-PCS; 2020-11-16)
PROC: B2151ZZ Fluoroscopy of Left Heart using Low Osmolar Contrast (ICD-10-PCS; 2020-11-16)
DX: I21.4 Non-ST elevation (NSTEMI) myocardial infarction (principal); I50.23 Acute on chronic systolic (congestive) heart failure; I25.10 Atherosclerotic heart disease of native coronary artery without angina pectoris; F17.210 Nicotine dependence, cigarettes, uncomplicated; Z95.5 Presence of coronary angioplasty implant and graft; I11.0 Hypertensive heart disease with heart failure; I25.5 Ischemic cardiomyopathy; Z91.14 Patient's other noncompliance with medication regimen; K21.9 Gastro-esophageal reflux disease without esophagitis; F41.9 Anxiety disorder, unspecified; Z79.02 Long term (current) use of antithrombotics/antiplatelets
CPT/HCPCS: 36415; 80048; 80053; 80061; 84484; 85027; 85610; 93005; 93306; 93458

== ENCOUNTER 2020-11-22 03:38 | Emergency (ER) | payer MEDICAID ==
[~2020-11-22] VITALS: Ht 170.2 cm; Wt 77.8 kg
[~2020-11-22 03:38] MED LIST changes: +CARV6.252 PO; +FURO-124 PO; +PANT40TA52 PO; +POTA20TA8 PO; +SACU1TAB2 PO
[2020-11-22] MEDS ORDERED: morphine INJ 10 MG/ML 1ML (SYR OR VIAL) IVP STA ×2 (03:58→04:44)
[2020-11-22] MEDS ORDERED: NS IV 500 ML 500 ML IV SCH (04:00)
[2020-11-22] MEDS ORDERED: ASPIRIN 81 MG CHEW (CHILDREN'S ASA) ONE (04:04)
--- NOTE | 2020-11-22 04:10 | ED Chest Pain ---
General Chief Complaint: Chest Pain Stated Complaint: CP Nursing Triage Note: BROUGHT IN BY [facility] FOR C/O CHEST PAIN. Nursing Sepsis Screen: No Definite Risk Source: patient, EMS Exam Limitations: no limitations (JB STONE MD) History of Present Illness Date Seen by Provider: Nov 22, 2020 Time Seen by Provider: 03:45 Initial Comments Patient is a 50-year-old who presents to the emergency room by EMS this evening with a chief complaint of chest pain. Patient states that it feels like "100 elephant's are sitting on my chest". He currently rates his pain a "a 10". Patient states that it started early this morning while he was packing to move to [place] to take care of his mother. Patient states the pain radiates underneath both of his shoulders. He complains of sweating with the pain. He is mildly nauseated he does not feel short of breath. The patient is initially quite belligerent and confrontational. He does seem to want to comply with medical treatment however. Patient tells me that he is not been able to fill his medications since his discharge earlier in the week. Patient does not really recall many of the details of his most recent hospitalization. Review of the medical records show that the patient was admitted over the course of last weekend with an NSTEMI. Patient did undergo cardiac catheterization. Patient was found to have multiple severe lesions that were not stented. Patient was started on maximal medical therapy secondary to his history of noncompliance and continued smoking. Patient does admit to smoking a little bit over the course of the last week but states that he has cut back quite a bit. History of ischemic cardiomyopathy with an ejection fraction around 15%. He denies recent fevers, chills, cough or congestion. No Covid symptoms. No vomiting or diarrhea no genitourinary complaints. Patient states that he has been wearing his LifeVest but left the new car inspector at an ex-girlfriend's house and has not been able to charge it secondary to that. All other review of systems reviewed and negative except as stated. Timing/Duration: 1-3 hours, constant Severity/Quality: severe, pressure Location: substernal Radiation: shoulders Activities at Onset: activity Prior CP/Workup: cardiac cath ASA po PLATE TAKE OUT WORKER: No NTG SL PLATE TAKE OUT WORKER: No Associated Symptoms: diaphoresis (JB STONE MD) Allergies and Home Medications Allergies Coded Allergies: No Known Drug Allergies (Unverified , 10/06/10) Home Medications Acetaminophen 500 Mg Tablet, 1,000 MG PO Q8H PRN for PAIN-MILD (1-4), (Reported) Aspirin 81 Mg Tablet.dr, 81 MG PO DAILY Prescribed by: ASHLEY FLANAGAN on 07/29/20 1345 Atorvastatin Calcium 80 Mg Tablet, 80 MG PO HS Prescribed by: ASHLEY FLANAGAN on 07/29/20 1345 Carvedilol 6.25 Mg Tablet, 6.25 MG PO BID Prescribed by: PACO TUCKER on 11/18/20 1124 Clopidogrel Bisulfate 75 Mg Tablet, 75 MG PO DAILY Prescribed by: ASHLEY FLANAGAN on 07/29/20 1345 Furosemide 40 Mg Tablet, 40 MG PO DAILY Prescribed by: PACO TUCKER on 11/18/20 1124 Mv, Min #36/Iron,Carbonyl/FA 1 Each Tablet, 1 EACH PO DAILY, (Reported) Pantoprazole Sodium 40 Mg Tablet.dr, 40 MG PO DAILY Prescribed by: PACO TUCKER on 11/18/20 1124 Potassium Chloride 20 Meq Tab.er.prt, 20 MEQ PO DAILY Prescribed by: PACO TUCKER on 11/18/20 1124 Sacubitril/Valsartan 1 Each Tablet, 1 TAB PO BID Prescribed by: PACO TUCKER on 11/18/20 1124 Patient Home Medication List Home Medication List Reviewed: Yes (JB STONE MD) Review of Systems Review of Systems Constitutional: see HPI EENTM: No Symptoms Reported Respiratory: No Symptoms Reported Cardiovascular: Chest Pain Gastrointestinal: Nausea Genitourinary: No Symptoms Reported Musculoskeletal: no symptoms reported Skin: other (Diaphoresis) Psychiatric/Neurological: No Symptoms Reported (JB STONE MD) All Other Systems Reviewed Negative Unless Noted: Yes (JB STONE MD) Past Bwtrxqu-Zulewa-Pultzl Hx Patient Social History Alcohol Use: Denies Use Drug of Choice: CANNIBUS Smoking Status: Current Someday Smoker Type Used: Cigarettes Recent Infectious Disease Expo: No Recent Hopitalizations: No (JB STONE MD) Immunizations Up To Date Tetanus Booster (TDap): Unknown (JB STONE MD) Seasonal Allergies Seasonal Allergies: No (JB STONE MD) Past Medical History Surgeries: Yes (Coil 09/18/10; RIGHT 5TH DIGIT) Amputation Respiratory: No Cardiac: Yes Coronary Artery Disease, Hypertension Neurological: No Reproductive Disorders: No Genitourinary: No Gastrointestinal: No Gastroesophageal Reflux Musculoskeletal: No Endocrine: No HEENT: No Cancer: No Psychosocial: Yes Anxiety, Violent Behavior Integumentary: No Blood Disorders: No (JB STONE MD) Family Medical History No Pertinent Family Hx (JB STONE MD) Physical Exam Vital Signs Vital Signs - First Documented 11/22/20 04:53 Pulse Ox 90 O2 Flow Rate 2.00 (BRENDA HARDY) Vital Signs Capillary Refill : Less Than 3 Seconds (JB STONE MD) Height, Weight, BMI Height: 5'5.00" Weight: 200lbs. oz. [id number]; 26.00 BMI Method:Stated General Appearance: No Apparent Distress, WD/WN Respiratory: Lungs Clear, Normal Breath Sounds Cardiovascular: Regular Rate, Rhythm Gastrointestinal: Normal Bowel Sounds, Non Tender, Soft Extremity: Normal Capillary Refill, Normal Inspection, No Pedal Edema Neurologic/Psychiatric: Alert, Oriented x3, No Motor/Sensory Deficits, Normal Mood/Affect Skin: Normal Color, Warm/Dry (JB STONE MD) Progress/Results/Core Measures Results/Orders Lab Results Laboratory Tests Test 11/22/20 04:05 11/22/20 06:53 Range/Units White Blood Count 6.4 4.3-11.0 10^3/uL Red Blood Count 4.98 4.30-5.52 10^6/uL Hemoglobin 13.5 13.3-17.7 g/dL Hematocrit 40 40-54 % Mean Corpuscular Volume 80 80-99 fL Mean Corpuscular Hemoglobin 27 25-34 pg Mean Corpuscular Hemoglobin Concent 34 32-36 g/dL Red Cell Distribution Width 13.0 10.0-14.5 % Platelet Count 254 130-400 10^3/uL Mean Platelet Volume 10.2 9.0-12.2 fL Immature Granulocyte % (Auto) 0 % Neutrophils (%) (Auto) 56 42-75 % Lymphocytes (%) (Auto) 34 12-44 % Monocytes (%) (Auto) 8 0-12 % Eosinophils (%) (Auto) 1 0-10 % Basophils (%) (Auto) 0 0-10 % Neutrophils # (Auto) 3.6 1.8-7.8 10^3/uL Lymphocytes # (Auto) 2.2 1.0-4.0 10^3/uL Monocytes # (Auto) 0.5 0.0-1.0 10^3/uL Eosinophils # (Auto) 0.1 0.0-0.3 10^3/uL Basophils # (Auto) 0.0 0.0-0.1 10^3/uL Immature Granulocyte # (Auto) 0.0 0.0-0.1 10^3/uL Sodium Level 138 135-145 MMOL/L Potassium Level 3.2 L 3.6-5.0 MMOL/L Chloride Level 104 98-107 MMOL/L Carbon Dioxide Level 21 21-32 MMOL/L Anion Gap 13 5-14 MMOL/L Blood Urea Nitrogen 17 7-18 MG/DL Creatinine 1.24 0.60-1.30 MG/DL Estimat Glomerular Filtration Rate > 60 BUN/Creatinine Ratio 14 Glucose Level 116 H 70-105 MG/DL Calcium Level 9.0 8.5-10.1 MG/DL Total Creatine Kinase 412 H 30-200 U/L Creatine Kinase MB 23.4 *H <6.6 NG/ML Troponin I 2.044 *H 2.417 *H <0.028 NG/ML (BRENDA HARDY) My Orders Orders - BRENDA HARDY Troponin I (11/22/20 06:48) (BRENDA HARDY) Medications Given in ED Current Medications Medications Dose Ordered Sig/Stefani Route Start Time Stop Time Status Last Admin Dose Admin Diphenhydramine HCl 25 mg ONCE ONCE IVP 11/22/20 05:30 11/22/20 05:31 DC 11/22/20 05:35 25 MG (BRENDA HARDY) Vital Signs/I&O 11/22/20 11/22/20 11/22/20 03:40 03:40 04:53 Temp 37.1 Pulse 106 Resp 18 B/P (MAP) 119/69 (86) Pulse Ox 90 O2 Delivery Room Air Room Air Nasal Cannula O2 Flow Rate 2.00 (BRENDA HARDY) 2 Blood Pressure Mean: 86 Progress Progress Note : Time: 05:31 Progress Note Reevaluated patient after second dose of 4 mg of morphine. Patient states that he is "all relaxed now" and his chest pain is completely resolved. Patient is complaining of a little bit of itching's from the morphine. We will give him 25 mg of Benadryl. I had a discussion with the patient about repeating his troponin at 7 AM to trend the troponin. He is agreeable to stay until that time. Otherwise he states that he does not really want to be readmitted to the hospital. Advised the patient that he would be signing out AGAINST MEDICAL ADVICE if he chose to leave. He verbalizes understanding. [address] Hardy at shift change with second troponin pending (JB STONE MD) Progress Note : Time: 07:45 Progress Note Assumed care of the patient at shift change. He was sleeping however he had gotten up to use the bathroom. He is no longer having any chest pain. Repeat troponin was done at 7:00 which came back elevated from previous 1. Patient still claims not to have any chest pain but is somnolent after his dose of op iates. He does not have a primary care doctor or tape cutting machine operator that he routinely follows with. He says he is having someone bring him the new car inspector for his LifeVest when he gets that here. We offered a stay in the hospital and insisted that he could be having a heart attack and could have worsening outcome including disability and/or and the patient states he still wants to leave today. We encouraged him to stay and informed him that if he left it would be AGAINST MEDICAL ADVICE and he acknowledges this. He states he still does not want to stay here. We talked about follow-up and will attempt to get him a follow-up appointment with a tape cutting machine operator if he is insistent on leaving. After further conversation the patient is getting on his phone to call for a ride and is insistent he will not be staying so we will have him sign out AGAINST MEDICAL ADVICE. (BRENDA HARDY) Initial ECG Impression Date: Nov 22, 2020 Initial ECG Impression Time: 03:49 Initial ECG Rate: 102 Initial ECG Rhythm: Normal Sinus Initial ECG Intervals: Normal Initial ECG Comparisson: Unchanged Comment Patient has depressed and inverted T waves in the anterior leads, no ST segment elevation is seen, right bundle branch block is seen (JB STONE MD) Diagnostic Imaging Diagonstic Imaging: Xray Plain Films/CT/US/NM/MRI: chest Comments NAME: YESENIA LOCKETT [facility] REC#: [id number] PT STATUS: REG ER : 1970 PHYSICIAN: JB STONE MD ADMIT DATE: 11/22/20/ER Draft Date of Exam:11/22/20 CHEST 1 VIEW, AP/PA ONLY EXAMINATION: AP upright portable chest INDICATION: Chest pain. COMPARISON: Multiple priors, most recent performed on 07/25/2020. FINDINGS: There is mild central vascular congestion and interstitial prominence. No pneumothorax or large pleural effusion. Heart is top normal in size. Mediastinal contours are unchanged. No acute osseous abnormalities identified. IMPRESSION: Mild pulmonary edema. No significant pleural effusion. Findings are similar in appearance to prior exam. Dictated on workstation # [id number] Dict: 11/22/20521 Trans: 11/22/20 0527 [facility] [id number] Interpreted by: SAROJ BOYCE DO Electronically signed by: Reviewed: Reviewed by Me (BRENDA HARDY) Departure Impression Primary Impression: Unstable angina Additional Impression: Nonadherence to medication Disposition: 07 AGAINST MEDICAL ADVICE Condition: Against Medical Advice Departure-Patient Inst. Decision time for Depature: 07:45 (BRENDA HARDY) Referrals: YVETTE WILLS MD NO,LOCAL PHYSICIAN (PCP) Primary Care Physician Patient Instructions: Angina (DC) Add. Discharge Instructions: You need to acquire the new car inspector to your LifeVest and recharge it promptly. It would be very [place] to follow-up with a primary care doctor. Included is a list of local primary care doctors. Talk to the tape cutting machine operator, Dr. Wills and request follow-up today or early next week. Return to the ER nearest you promptly if you are having any worsening chest pain, shortness of air etc. Continue taking your medications as prescribed. All discharge instructions reviewed with patient and/or family. Voiced understanding. Copy Copies To 1: YVETTE WILLS MD, KATHRYN M MD Nov 22, 2020 04:10 BRENDA HARDY Nov 22, 2020 06:07
[2020-11-22 04:14] LABS: BASOPHILS % (AUTO) 0 % (0-10); EOSINOPHILS # (AUTO) 0.1 10^3/uL (0.0-0.3); EOSINOPHILS % (AUTO) 1 % (0-10); HEMATOCRIT 40 % (40-54); HEMOGLOBIN 13.5 g/dL (13.3-17.7); LYMPHOCYTES # (AUTO) 2.2 10^3/uL (1.0-4.0); LYMPHOCYTES % (AUTO) 34 % (12-44); MEAN CORPUSCULAR HEMOGLOBIN 27 pg (25-34); MEAN CORPUSCULAR HGB CONC 34 g/dL (32-36); MEAN CORPUSCULAR VOLUME 80 fL (80-99); MEAN PLATELET VOLUME 10.2 fL (9.0-12.2); MONOCYTES # (AUTO) 0.5 10^3/uL (0.0-1.0); MONOCYTES % (AUTO) 8 % (0-12); NEUTROPHILS # (AUTO) 3.6 10^3/uL (1.8-7.8); NEUTROPHILS % (AUTO) 56 % (42-75); PLATELET COUNT 254 10^3/uL (130-400); WHITE BLOOD COUNT 6.4 10^3/uL (4.3-11.0)
[2020-11-22 04:24] LABS: CHLORIDE 104 MMOL/L (98-107); POTASSIUM 3.2 MMOL/L (3.6-5.0); SODIUM 138 MMOL/L (135-145)
[2020-11-22 04:26] LABS: GLUCOSE 116 MG/DL (70-105)
[2020-11-22 04:27] LABS: CARBON DIOXIDE 21 MMOL/L (21-32)
[2020-11-22 04:29] LABS: CREATININE SERUM 1.24 MG/DL (0.60-1.30); GFR ESTIMATED > 60
[2020-11-22 04:30] LABS: BUN/CREATININE RATIO 14
[2020-11-22 04:32] LABS: CREATINE KINASE 412 U/L (30-200)
[2020-11-22 04:43] LABS: CREATINE KINASE MB 23.4 NG/ML (<6.6)
--- NOTE | 2020-11-22 05:27 | Diagnostic Imaging Report ---
EXAMINATION: AP upright portable chest INDICATION: Chest pain. COMPARISON: Multiple priors, most recent performed on 07/25/2020. FINDINGS: There is mild central vascular congestion and interstitial prominence. No pneumothorax or large pleural effusion. Heart is top normal in size. Mediastinal contours are unchanged. No acute osseous abnormalities identified. IMPRESSION: Mild pulmonary edema. No significant pleural effusion. Findings are similar in appearance to prior exam. Dictated by: Dictated on workstation # [id number]
[2020-11-22] MEDS ORDERED: diphenhydrAMINE 50 MG/ML INJ (BENADRYL) IVP ONE (05:30)
[2020-11-22 08:11] VITALS: BP 109/87
[2020-11-22] MEDS ORDERED: ASPIRIN 81 MG CHEW (CHILDREN'S ASA) PO SCH (09:00)
== END 2020-11-22 08:21 | disposition left against medical advice (07) ==
LOC: EDUNIT# 03:38 → ER 03:40
DX: I20.0 Unstable angina (principal); I10 Essential (primary) hypertension; K21.9 Gastro-esophageal reflux disease without esophagitis; F17.210 Nicotine dependence, cigarettes, uncomplicated; Z91.19 Patient's noncompliance with other medical treatment and regimen; Z95.9 Presence of cardiac and vascular implant and graft, unspecified; Z79.82 Long term (current) use of aspirin
CPT/HCPCS: 36415; 71045; 80048; 82550; 82553; 84484; 85025

== ENCOUNTER 2020-11-23 08:51 | Inpatient (IN) | payer MEDICAID ==
[~2020-11-23] VITALS: Ht 64 cm; Wt 73.4 kg
[2020-11-23] VITALS (14 sets, daily range): BP systolic 102–136; BP diastolic 71–92
[2020-11-23] MEDS ORDERED: ONDANSETRON 4 MG/2 ML (SDV) Z0FRAN IVP PRN (10:00)
[2020-11-23] MEDS ORDERED: morphine INJ 4 MG/ML 1 ML (VIAL/SYRINGE) IV PRN (10:00)
[2020-11-23] MEDS ORDERED: morphine INJ 10 MG/ML 1ML (SYR OR VIAL) IV PRN (10:00)
[2020-11-23] MEDS ORDERED: ONDANSETRON 4 MG/2 ML (SDV) Z0FRAN IV PRN (10:00)
[2020-11-23] MEDS ORDERED: PATIENT MAY USE OWN MEDS, ALL PO SCH (10:00)
[2020-11-23] MEDS ORDERED: NITROGLYCERIN 0.4 MG SL TABS BTL 25'S SL PRN (10:00)
[2020-11-23] MEDS: inSUlin ASPART (NovoLOG) 1 UNIT/0.01 ML (CHARGE PER UNIT) SC SCH ×3 (10:55→20:47)
[2020-11-23] MEDS: CLOPIDOGREL 75 MG (PLAVIX) TABLET PO SCH (10:56)
[2020-11-23] MEDS: ASPIRIN E.C. 81 MG (ECOTRIN) TAB PO SCH (10:56)
[2020-11-23] MEDS: ENOXAPARIN 80 MG/0.8 ML (LOVENOX) SYR SC SCH ×2 (10:56→22:56)
--- NOTE | 2020-11-23 11:19 | History & Physical-Hospitalist ---
History of Present Illness HPI/Chief Complaint Keegan Milligan is a 50-year-old male with past medical history of coronary artery disease, heart failure with reduced ejection fraction, hypertension, tobacco abuse, medication noncompliance, who presented to the [facility] with chest pain. He had been seen in the [place] emergency room yesterday.with chest pain and was found to have an elevated troponin but he left AGAINST MEDICAL ADVICE. He was also admitted 1 week ago with similar symptoms and an elevated troponin. He underwent a left heart catheterization and no intervention was performed. Medical management was recommended at that time. He is now having recurrent chest pain. The pain is located in the center of his chest. He denies any radiation of the pain. He denies any associated nausea or diaphoresis. He has been having shortness of breath. Source: patient Exam Limitations: no limitations Date Seen 11/23/20 Time Seen by a Provider: 10:00 Attending Physician Ashley Flanagan MD PCP No,Local Physician Referring Physician Date of Admission Nov 23, 2020 at 09:52 Home Medications & Allergies Home Medications Reviewed patient Home Medication Reconciliation performed by pharmacy medication reconciliations thermal technician and/or nursing. Patients Allergies have been reviewed. Allergies Allergies Coded Allergies No Known Drug Allergies (Unverified10/06/10) Past Jlgsuyk-Rdzsve-Jgjbun Hx Past Med/Social Hx: Reviewed Nursing Past Med/Soc Hx Patient Social History Drug of Choice: CANNIBUS Type Used: Cigarettes Recent Hopitalizations: No Immunizations Up To Date Tetanus Booster (TDap): Unknown Seasonal Allergies Seasonal Allergies: No Past Medical History Surgeries: Amputation Cardiac: Coronary Artery Disease, Hypertension Reproductive: No Gastrointestinal: Gastroesophageal Reflux Psychosocial: Anxiety, Violent Behavior History of Blood Disorders: No Family History No Pertinent Family Hx Review of Systems Constitutional: no symptoms reported EENTM: no symptoms reported Respiratory: short of breath Cardiovascular: chest pain Gastrointestinal: no symptoms reported Genitourinary: no symptoms reported Musculoskeletal: no symptoms reported Skin: no symptoms reported Psychiatric/Neurological: No Symptoms Reported Physical Exam Physical Exam Vital Signs Vital Signs - First Documented 11/23/20 11/23/20 11/23/20 09:45 09:46 10:00 Pulse 93 B/P (MAP) 117/81 (93) Pulse Ox 11 O2 Delivery Room Air Capillary Refill : Height, Weight, BMI Height: 5'5.00" Weight: 200lbs. oz. 90.889148bh; 26.00 BMI Method:Stated General Appearance: No Apparent Distress, WD/WN HEENT: PERRL/EOMI, Pharynx Normal Neck: Normal Inspection, Supple Respiratory: Lungs Clear, Normal Breath Sounds, No Respiratory Distress Cardiovascular: Regular Rate, Rhythm, No Edema, No Murmur Gastrointestinal: Normal Bowel Sounds, Non Tender, Soft Extremity: Normal Inspection, Non Tender, No Pedal Edema Neurologic/Psychiatric: Alert, Oriented x3, No Motor/Sensory Deficits, Normal Mood/Affect Skin: Normal Color, Warm/Dry Results Results/Procedures Labs Patient resulted labs reviewed. Imaging: Reviewed Imaging Report Assessment/Plan Admission Diagnosis NSTEMI Admission Status: Inpatient Order (span 2 midnights) Reason for Inpatient Admission: NSTEMI requiring cardiology intervention Assessment and Plan NSTEMI CAD HLD Troponin >2 at [facility] EKG without acute changes Cardiology consulted, appreciate assistance NPO for possible procedure Continue ASA and Plavix Continue Lipitor Therapeutic Lovenox Morphine as needed for pain HFrEF HTN Continue Entresto Continue Coreg Tobacco abuse Nicotine patch Diagnosis/Problems Diagnosis/Problems (1) NSTEMI (non-ST elevated myocardial infarction) Status: Acute (2) HFrEF (heart failure with reduced ejection fraction) Status: Acute (3) Ischemic cardiomyopathy Status: Acute (4) Nonadherence to medication Status: Acute (5) HTN (hypertension) Status: Chronic (6) HLD (hyperlipidemia) Status: Chronic (7) Tobacco abuse Status: Chronic ASHLEY FLANAGAN MD Nov 23, 2020 11:19
[2020-11-23] MEDS ORDERED: NICOTINE 14 MG (NICODERM) PATCH TD ONE (11:30)
[2020-11-23] MEDS: SACUBITRIL/VALSARTAN 24/26 MG (ENTRESTO) TABLET PO SCH ×3 (11:42→20:41)
[2020-11-23] MEDS: CARVEDILOL 6.25 MG (COREG) TAB PO SCH ×3 (11:42→20:40)
--- NOTE | 2020-11-23 15:20 | Consultation-Cardiology ---
HPI-Cardiology Cardiology Consultation: Date of Consultation 11/23/20 Date of Admission Attending Physician Ashley Flanagan MD Admitting Physician No,Local Physician Consulting Physician Alan HORNE MD HPI: Time Seen by a Provider: 14:00 Chief Complaint: chest pain This is a 50 year old male with previous history of cad and pci in jul 2020. severe cardiomyopathy, covid pneumonia in july 2021. history of active smoking. He presented to [facility] ER in the last couple of days but he signed out AMA. he has history of non-compliance. he was recently admitted end oct. Dr Wills performed coronary angiography. No PCI done. medical therapy was recommended. He presented with chest pain at an outside hospital with chest pain and positive troponin. Review of Systems-Cardiology Review of Systems Constitutional: As described under HPI; No As described under HPI, No no symptoms reported, No chills, No fever, No lightheadedness Eyes: No As described under HPI, No no symptoms reported, No blindness, No blurred vision, No contact lenses, No drainage, No decreased acuity, No foreign body sensation, No pain, No vision change Ears/Nose/Throat: No As described under HPI, No no symptoms reported, No chronic hearing loss, No ear discharge, No ear pain, No nasal drainage, No ulcerations Respiratory: No no symptoms reported; As described under HPI; No As described under HPI, No cough, No orthopnea, No shortness of breath, No SOB with excertion Cardiovascular: No no symptoms reported; As described under HPI; No As described under HPI; chest pain; No edema, No irregular heart rate, No lightheadedness, No palpitations Gastrointestinal: No no symptoms reported, No As described under HPI, No abdomen distended, No abdominal pain, No blood streaked bowels, No constipation, No diarrhea, No nausea, No vomiting, No stool coloration changes Genitourinary: No As described under HPI, No burning, No dysuria, No discharge, No frequency, No flank pain, No hematuria, No urgency Skin: No rash, No skin related problems, No ulcerations Psychiatric/Neurological: No anxiety, No depression, No seizure, No focal weakness, No syncope Hematologic: No bleeding abnormalities HMS-Ubbcng-Zjulxr Hx Immunizations Up To Date Tetanus Booster (TDap): Unknown Past Medical History PMH As described under Assessment. Allergies and Home Medications Allergies Coded Allergies: No Known Drug Allergies (Unverified , 10/06/10) Home Medications Acetaminophen 500 Mg Tablet, 1,000 MG PO Q8H PRN for PAIN-MILD (1-4), (Reported) Aspirin 81 Mg Tablet.dr, 81 MG PO DAILY Prescribed by: ASHLEY FLANAGAN on 07/29/20 1345 Atorvastatin Calcium 80 Mg Tablet, 80 MG PO HS Prescribed by: ASHLEY FLANAGAN on 07/29/20 1345 Carvedilol 6.25 Mg Tablet, 6.25 MG PO BID Prescribed by: PACO TUCKER on 11/18/20 1124 Clopidogrel Bisulfate 75 Mg Tablet, 75 MG PO DAILY Prescribed by: ASHLEY FLANAGAN on 07/29/20 1345 Furosemide 40 Mg Tablet, 40 MG PO DAILY Prescribed by: PACO TUCKER on 11/18/20 1124 Mv, Min #36/Iron,Carbonyl/FA 1 Each Tablet, 1 EACH PO DAILY, (Reported) Pantoprazole Sodium 40 Mg Tablet.dr, 40 MG PO DAILY Prescribed by: PACO TUCKER on 11/18/20 1124 Potassium Chloride 20 Meq Tab.er.prt, 20 MEQ PO DAILY Prescribed by: PACO TUCKER on 11/18/20 1124 Sacubitril/Valsartan 1 Each Tablet, 1 TAB PO BID Prescribed by: PACO TUCKER on 11/18/20 1124 Patient Home Medication List Home Medication List Reviewed: Yes Physical Exam-Cardiology Physical Exam Vital Signs/I&O 11/23/20 11/23/20 11/23/20 11/23/20 09:45 09:46 10:00 10:17 Pulse 93 66 B/P (MAP) 117/81 (93) 122/82 (95) Pulse Ox 94 99 O2 Delivery Room Air Room Air 11/23/20 11/23/20 11/23/20 11/23/20 11:00 11:34 12:00 13:00 Temp 36.6 Pulse 53 100 98 Resp 17 B/P (MAP) 136/81 (99) 118/84 (95) 120/75 (90) Pulse Ox 96 94 98 O2 Delivery Room Air Room Air Room Air 11/23/20 11/23/20 13:00 14:00 Pulse 72 101 Resp 28 B/P (MAP) 120/80 (93) Pulse Ox 98 O2 Delivery Room Air Capillary Refill : Constitutional: appears stated age, AAO x 3; No apparent distress; well- developed, well-nourished HEENT: PERRL; No discharge; hearing is well preserved, oral hygience is good; No ulceration, No xanthelasmas are seen Neck: No carotid bruit; carotid pulses are 2 + bilaterally Respiratory: chest is bilaterally symmetric, lungs clear to auscultation Cardiovascular: regular rate-rhythm, S1 and S2 Gastrointestinal: soft, audible bowel sounds; No spleenomegaly Rectal: deferred Extremities: normal range of motion, non-tender, normal inspection; No clubbing, No cyanosis; no lower extremity edema bilateral; No significant edema Neurologic/Psychiatric: no motor/sensory deficits, alert, normal mood/affect, oriented x 3, power is 5/5 both on sides Skin: normal color; No rash, No ulcerations Data Review Labs Laboratory Tests 11/23/20 10:48: Glucometer 113H 11/23/20 12:22: Troponin I 5.544*H A/P-Cardiology Assessment/Admission Diagnosis nstemi, cardiomyopathy, Plan nstemi with worsening troponin. recurrent nstemi with last episode ten days ago. peak trop 8. dr wills performed coronary angiography with no pci. concern about patient's non compliance. we restarted dual anti-platelet therapy including aspirin and plavix. I will also recommend ACS dose Lovenox. no chest pain when i saw the patient. ekg shows no st elevation. Echocardiogram. cardiomyopathy - patient is non compliant with life vest. previous covid infection in jul 2020. Thank you for your consultation. Please call me if you have any questions. Norman Horne MD, FACP, FACC, FSCAI, FHRS, CCDS Interventional Cardiology Cardiac Electrophysiology Vascular Medicine and Endovascular Interventions Alan HORNE MD Nov 23, 2020 15:20
[2020-11-23 17:43] LABS: AMPHETAMINE SCREEN, URINE POSITIVE (NEGATIVE); BARBITURATE SCREEN URINE NEGATIVE (NEGATIVE); BENZODIAZEPINES SCREEN URINE NEGATIVE (NEGATIVE); CANNABINOID SCREEN, URINE POSITIVE (NEGATIVE); COCAINE SCREEN URINE NEGATIVE (NEGATIVE); METHADONE STAT NEGATIVE (NEGATIVE); METHAMPHETAMINE SCREEN URINE S POSITIVE (NEGATIVE); OPIATE SCREEN URINE POSITIVE (NEGATIVE); OXYCODONE STAT NEGATIVE (NEGATIVE); TRICYCLIC ANTIDEPRESSANTS SCRE NEGATIVE (NEGATIVE)
[2020-11-23 17:44] LABS: PROPOXYPHENE STAT NEGATIVE (NEGATIVE)
[2020-11-24] VITALS: BP 102/73
[2020-11-24 03:16] LABS: BASOPHILS % (AUTO) 0 % (0-10); EOSINOPHILS # (AUTO) 0.1 10^3/uL (0.0-0.3); EOSINOPHILS % (AUTO) 1 % (0-10); HEMATOCRIT 39 % (40-54); HEMOGLOBIN 13.2 g/dL (13.3-17.7); LYMPHOCYTES # (AUTO) 2.7 10^3/uL (1.0-4.0); LYMPHOCYTES % (AUTO) 45 % (12-44); MEAN CORPUSCULAR HEMOGLOBIN 27 pg (25-34); MEAN CORPUSCULAR HGB CONC 34 g/dL (32-36); MEAN CORPUSCULAR VOLUME 80 fL (80-99); MEAN PLATELET VOLUME 10.9 fL (9.0-12.2); MONOCYTES # (AUTO) 0.4 10^3/uL (0.0-1.0); MONOCYTES % (AUTO) 6 % (0-12); NEUTROPHILS # (AUTO) 2.8 10^3/uL (1.8-7.8); NEUTROPHILS % (AUTO) 47 % (42-75); PLATELET COUNT 290 10^3/uL (130-400)
[2020-11-24 03:31] LABS: CHLORIDE 109 MMOL/L (98-107); POTASSIUM 3.7 MMOL/L (3.6-5.0); SODIUM 138 MMOL/L (135-145)
[2020-11-24 03:32] LABS: CALCIUM 8.5 MG/DL (8.5-10.1); GLUCOSE 100 MG/DL (70-105)
[2020-11-24 03:34] LABS: CARBON DIOXIDE 21 MMOL/L (21-32)
[2020-11-24 03:36] LABS: CREATININE SERUM 0.97 MG/DL (0.60-1.30); GFR ESTIMATED > 60
[2020-11-24 03:37] LABS: BUN/CREATININE RATIO 12
[2020-11-24 04:00] VITALS: BP 111/90
[2020-11-24] MEDS: inSUlin ASPART (NovoLOG) 1 UNIT/0.01 ML (CHARGE PER UNIT) SC SCH (06:00)
[2020-11-24 08:00] VITALS: BP 90/50
[2020-11-24] MEDS: SACUBITRIL/VALSARTAN 24/26 MG (ENTRESTO) TABLET PO SCH (08:08)
[2020-11-24] MEDS: CLOPIDOGREL 75 MG (PLAVIX) TABLET PO SCH (08:08)
[2020-11-24] MEDS: ASPIRIN E.C. 81 MG (ECOTRIN) TAB PO SCH (08:08)
[2020-11-24] MEDS: CARVEDILOL 6.25 MG (COREG) TAB PO SCH (08:08)
[2020-11-24] MEDS ORDERED: PATCH REMOVAL TP SCH (09:00)
[2020-11-24] MEDS ORDERED: NICOTINE 14 MG (NICODERM) PATCH TD SCH (09:00)
[2020-11-24] MEDS: ENOXAPARIN 80 MG/0.8 ML (LOVENOX) SYR SC SCH (11:35)
[2020-11-24 12:00] VITALS: BP 116/87
--- NOTE | 2020-11-24 15:37 | Cardiology Progress Note ---
Cardiology SOAP Progress Note Subjective: no chest pain Objective: I&O/Vital Signs 11/24/20 11/24/20 11/24/20 11/24/20 04:00 05:07 07:00 08:00 Temp 36.5 Pulse 85 66 81 Resp 19 17 B/P (MAP) 111/90 (97) 90/50 (63) Pulse Ox 98 97 O2 Delivery Room Air Room Air 11/24/20 11/24/20 12:00 12:54 Pulse 88 101 Resp 25 B/P (MAP) 116/87 (97) Pulse Ox 97 O2 Delivery Room Air 11/24/20 00:00 Intake Total 240 ml Output Total 400 ml Balance -160 ml Weight (Pounds): 200 Weight (Calculated Kilograms): 90.747239 Constitutional: appears stated age, AAO x 3; No apparent distress; well- developed, well-nourished Respiratory: chest is bilaterally symmetric, lungs clear to auscultation Cardiovascular: regular rate-rhythm, S1 and S2 Gastrointestional: soft, audible bowel sounds; No spleenomegaly Extremities: normal range of motion, non-tender, normal inspection; No clubbing, No cyanosis; no lower extremity edema bilateral; No significant edema Neurologic/Psychiatric: no motor/sensory deficits, alert, normal mood/affect, oriented x 3, power is 5/5 both on sides Skin: normal color; No rash, No ulcerations Results/Procedures: Labs Laboratory Tests 11/23/20 17:16: Urine Opiates Screen POSITIVEH, Urine Oxycodone Screen NEGATIVE, Urine Methadone Screen NEGATIVE, Urine Propoxyphene Screen NEGATIVE, Urine Barbiturates Screen NEGATIVE, Ur Tricyclic Antidepressants Screen NEGATIVE, Urine Phencyclidine Screen NEGATIVE, Urine Amphetamines Screen POSITIVEH, Urine Methamphetamines Screen POSITIVEH, Urine Benzodiazepines Screen NEGATIVE, Urine Cocaine Screen NEGATIVE, Urine Cannabinoids Screen POSITIVEH 11/23/20 17:37: Glucometer 86 11/23/20 20:43: Glucometer 104 11/24/20 03:03: Sodium Level 138, Potassium Level 3.7, Chloride Level 109H, Carbon Dioxide Level 21, Anion Gap 8, Blood Urea Nitrogen 12, Creatinine 0.97, Estimat Glomerular Filtration Rate > 60, BUN/Creatinine Ratio 12, Glucose Level 100, Calcium Level 8.5 11/24/20 03:05: White Blood Count 6.0, Red Blood Count 4.86, Hemoglobin 13.2L, Hematocrit 39L, Mean Corpuscular Volume 80, Mean Corpuscular Hemoglobin 27, Mean Corpuscular Hemoglobin Concent 34, Red Cell Distribution Width 13.0, Platelet Count 290, Mean Platelet Volume 10.9, Immature Granulocyte % (Auto) 0, Neutrophils (%) (Auto) 47, Lymphocytes (%) (Auto) 45H, Monocytes (%) (Auto) 6, Eosinophils (%) (Auto) 1, Basophils (%) (Auto) 0, Neutrophils # (Auto) 2.8, Lymphocytes # (Auto) 2.7, Monocytes # (Auto) 0.4, Eosinophils # (Auto) 0.1, Basophils # (Auto) 0.0, Immature Granulocyte # (Auto) 0.0, Troponin I 6.017*H A/P: Assessment/Dx: nstemi, cardiomyopathy, drug abuse with multiple drugs, active smoking, non-compliance Plan: nstemi with worsening troponin. recurrent nstemi with last episode ten days ago. peak trop 8. dr wills performed coronary angiography with no pci. concern about patient's non compliance. we restarted dual anti-platelet therapy including aspirin and plavix. I will also recommend ACS dose Lovenox. no chest pain when i saw the patient. ekg shows no st elevation. cardiomyopathy - patient is non compliant with life vest. previous covid infection in jul 2020. active smoking, strongly recommended to quit. drug abuse with multiple drugs. I had a very meg and candid discussion with the patient. i discussed with him that he has had recurrent nstemi within two weeks. he is not having active chest pain or st elevations, therefore, no indication for urgent cath. I have reviewed previous coronary angiogram done by myself in july 2019 with PCI to the mid LAD with a 2.25mm CARMINA and recent coronary angiogram done by Dr Wills in end oct 2020 in which no PCI was done. Just proximal to the previous stent in the LAD, there seems to be a moderate to severe lesion. He may need another stent, but will need to overlap with the prior stent which is of a small diameter (2.25mm). He is not complaint with his plavix and my concern is that he will be at high risk for stent thrombosis with two stents especially with overlap and with small diameter. stent thrombosis of proximal LAD in a patient with moderate to severe LV systolic dysfunction may be fatal. He not only is non-complaint with DAPT but also uses all kind of drugs. I have told him that I am very uncomfortable with performing another coronary angiogram and potentially implanting another stent due to reasons mentioned above. he needs to demonstrate to us that he is will to be compliant with meds and also stop use of recreational drugs such as meth. I will give patient time to think and let us know. in the meantime, i will continue aspirin, plavix and acs dose LMWH. I have also discussed with the nursing staff and requested a executive secretary social welfare consult tomorrow to help him make a decision. Thank you for your consultation. Please call me if you have any questions. Norman Acosta MD, FACP, FACC, FSCAI, FHRS, CCDS Interventional Cardiology Cardiac Electrophysiology Vascular Medicine and Endovascular Interventions Alan ACOSTA MD Nov 24, 2020 15:37
[2020-11-24 16:00] VITALS: BP 110/76
== END 2020-11-24 18:10 | disposition left against medical advice (07) | DRG 281 ==
LOC: ICU 09:52
PROVIDERS: ADMIT Internal Medicine; ATTEND Internal Medicine
DX: I21.4 Non-ST elevation (NSTEMI) myocardial infarction (principal); I50.22 Chronic systolic (congestive) heart failure; I42.9 Cardiomyopathy, unspecified; I25.10 Atherosclerotic heart disease of native coronary artery without angina pectoris; I11.0 Hypertensive heart disease with heart failure; Z86.16 Personal history of COVID-19; F17.210 Nicotine dependence, cigarettes, uncomplicated; K21.9 Gastro-esophageal reflux disease without esophagitis; F41.9 Anxiety disorder, unspecified; E78.5 Hyperlipidemia, unspecified; Z91.14 Patient's other noncompliance with medication regimen; Z79.82 Long term (current) use of aspirin
CPT/HCPCS: 36415; 80048; 80306; 82962; 84484; 85025; 93005

== ENCOUNTER 2021-04-01 12:39 | Observation (INO) | payer MEDICAID ==
[~2021-04-01] VITALS: Ht 165 cm; Wt 66.0 kg
[2021-04-01] VITALS (11 sets, daily range): BP systolic 96–117; BP diastolic 70–88
[2021-04-01] MEDS ORDERED: ASPIRIN 81 MG CHEW (CHILDREN'S ASA) PO ONE (13:15)
[2021-04-01] MEDS ORDERED: NS IV 500 ML 500 ML IV ONE (13:15)
--- NOTE | 2021-04-01 13:15 | ED Chest Pain ---
General Chief Complaint: Chest Pain Stated Complaint: CP Nursing Triage Note: PT TO [facility] BY [facility] WITH CC OF SYNCOPAL EPISODE. PT WAS IN THE [facility] AND "WENT DOWN" BUT DID NOT FALL, DENIES HEAD OR NECK PAIN. PT WAS DIZZY AND STATES HE MIGHT BE DEHYDRATED. Source: patient Exam Limitations: no limitations History of Present Illness Date Seen by Provider: Apr 01, 2021 Time Seen by Provider: 12:45 Initial Comments Patient to the ER by EMS from [facility] where he had a syncopal episode. Just prior to that he was having some chest pain. He says for the past couple days he is fell off like he might be sick but is not having sore throat, runny nose, fevers, chills, cough or any were short of breath than normal. He does smoke occasionally about a pack every month although he stopped after his heart attack a couple years ago. He is known to Dr. Wills and used to follow [facility] but he is looking for a new doctor. He is not wearing his LifeVest for the past 2 months. He takes his medications as prescribed because his girlfriend gives them to him. He uses marijuana and last use of methamphetamines was about 4 5 days ago. He is not having any chest pain presently. Patient states for the past couple days he gets dizzy when he has been with sitting down or lying down for a long time and stands up. He states that he has been outside the entire time and he may be dehydrated. 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 He had Covid in July 2020. He has had 2 different people he is exposed to in the past couple weeks with COVID-19. He has not been tested since that time. Allergies and Home Medications Allergies Coded Allergies: No Known Drug Allergies (Unverified , 10/06/10) Home Medications Acetaminophen 500 Mg Tablet, 1,000 MG PO Q8H PRN for PAIN-MILD (1-4), (Reported) Aspirin 81 Mg Tablet., 81 MG PO DAILY Prescribed by: ASHLEY FLANAGAN on 07/29/20 1345 Atorvastatin Calcium 80 Mg Tablet, 80 MG PO HS Prescribed by: ASHLEY FLANAGAN on 07/29/20 1345 Carvedilol 6.25 Mg Tablet, 6.25 MG PO BID Prescribed by: PACO TUCKER on 11/18/20 1124 Clopidogrel Bisulfate 75 Mg Tablet, 75 MG PO DAILY Prescribed by: ASHLEY FLANAGAN on 07/29/20 1345 Furosemide 40 Mg Tablet, 40 MG PO DAILY Prescribed by: PACO TUCKER on 11/18/20 1124 Mv, Min #36/Iron,Carbonyl/FA 1 Each Tablet, 1 EACH PO DAILY, (Reported) Pantoprazole Sodium 40 Mg Tablet.dr, 40 MG PO DAILY Prescribed by: PACO TUCKER on 11/18/20 112 Potassium Chloride 20 Meq Tab.er.prt, 20 MEQ PO DAILY Prescribed by: PACO TUCKER on 11/18/20 112 Sacubitril/Valsartan 1 Each Tablet, 1 TAB PO BID Prescribed by: PACO TUCKER on 11/18/20 112 Patient Home Medication List Home Medication List Reviewed: Yes Review of Systems Review of Systems Constitutional: No chills, No diaphoresis; dizziness; No fever; malaise EENTM: No Blurred Vision, No Double Vision Respiratory: Denies Cough, Denies Shortness of Air Cardiovascular: See HPI, Chest Pain; Denies Edema; Lightheadedness; Denies Palpitations; Syncope Gastrointestinal: Denies Abdominal Pain, Denies Constipated, Denies Diarrhea, Denies Nausea Genitourinary: Denies Burning, Denies Discharge Musculoskeletal: No back pain, No joint pain Skin: No pruritus, No rash Psychiatric/Neurological: Denies Headache, Denies Numbness All Other Systems Reviewed Negative Unless Noted: Yes Past Lkriszg-Ulnrei-Jmesua Hx Patient Social History Tobacco Use?: Yes Tobacco type used: Cigarettes Smoking Status: Current Someday Smoker (Pack per month) Use of E-Cig and/or Vaping dev: No Substance use?: Yes Substance type: Methamphetamine, Marijuana Substance frequency: Couple times a week Alcohol Use?: No Immunizations Up To Date Tetanus Booster (TDap): Unknown Seasonal Allergies Seasonal Allergies: No Past Medical History Surgeries: Yes (Coil 09/18/10; RIGHT 5TH DIGIT) Amputation Respiratory: No Cardiac: Yes Coronary Artery Disease, Hypertension Neurological: No Reproductive Disorders: No Genitourinary: No Gastrointestinal: No Gastroesophageal Reflux Musculoskeletal: No Endocrine: No HEENT: No Cancer: No Psychosocial: Yes Anxiety, Violent Behavior Integumentary: No Blood Disorders: No Family Medical History No Pertinent Family Hx Physical Exam Vital Signs Vital Signs - First Documented 04/01/21 12:46 Temp 36.9 Pulse 98 Resp 20 B/P (MAP) 108/80 (89) Pulse Ox 98 O2 Delivery Room Air Capillary Refill : Less Than 3 Seconds Height, Weight, BMI Height: 5'5.00" Weight: 200lbs. oz. 90.972855hg; 19.00 BMI Method:Stated General Appearance: Chronically ill, Mild Distress HEENT: PERRL/EOMI, Pharynx Normal, Moist Mucous Membranes Neck: Full Range of Motion, Normal Inspection, Non Tender Respiratory: Chest Non Tender, Lungs Clear, Normal Breath Sounds, No Accessory Muscle Use, No Respiratory Distress Cardiovascular: Regular Rate, Rhythm, No Edema, Normal Peripheral Pulses Gastrointestinal: Non Tender, Soft Extremity: Normal Capillary Refill, Normal Inspection, No Pedal Edema Neurologic/Psychiatric: Alert, Oriented x3, No Motor/Sensory Deficits Skin: Normal Color, Warm/Dry Progress/Results/Core Measures Results/Orders Lab Results Laboratory Tests Test 04/01/21 13:15 04/01/21 13:25 04/01/21 13:30 Range/Units White Blood Count 5.0 4.3-11.0 10^3/uL Red Blood Count 5.13 4.30-5.52 10^6/uL Hemoglobin 13.9 13.3-17.7 g/dL Hematocrit 42 40-54 % Mean Corpuscular Volume 81 80-99 fL Mean Corpuscular Hemoglobin 27 25-34 pg Mean Corpuscular Hemoglobin Concent 33 32-36 g/dL Red Cell Distribution Width 15.0 H 10.0-14.5 % Platelet Count 189 130-400 10^3/uL Mean Platelet Volume 10.1 9.0-12.2 fL Immature Granulocyte % (Auto) 0 % Neutrophils (%) (Auto) 49 42-75 % Lymphocytes (%) (Auto) 43 12-44 % Monocytes (%) (Auto) 7 0-12 % Eosinophils (%) (Auto) 1 0-10 % Basophils (%) (Auto) 0 0-10 % Neutrophils # (Auto) 2.4 1.8-7.8 10^3/uL Lymphocytes # (Auto) 2.2 1.0-4.0 10^3/uL Monocytes # (Auto) 0.3 0.0-1.0 10^3/uL Eosinophils # (Auto) 0.0 0.0-0.3 10^3/uL Basophils # (Auto) 0.0 0.0-0.1 10^3/uL Immature Granulocyte # (Auto) 0.0 0.0-0.1 10^3/uL Prothrombin Time 14.2 12.2-14.7 SEC INR Comment 1.1 0.8-1.4 Activated Partial Thromboplast Time 35 24-35 SEC D-Dimer 0.71 H 0.00-0.49 UG/ML Sodium Level 144 135-145 MMOL/L Potassium Level 3.8 3.6-5.0 MMOL/L Chloride Level 107 98-107 MMOL/L Carbon Dioxide Level 22 21-32 MMOL/L Anion Gap 15 H 5-14 MMOL/L Blood Urea Nitrogen 11 7-18 MG/DL Creatinine 1.35 H 0.60-1.30 MG/DL Estimat Glomerular Filtration Rate > 60 BUN/Creatinine Ratio 8 Glucose Level 81 70-105 MG/DL Calcium Level 9.5 8.5-10.1 MG/DL Corrected Calcium 9.3 8.5-10.1 MG/DL Magnesium Level 1.6 1.6-2.4 MG/DL Total Bilirubin 1.9 H 0.1-1.0 MG/DL Aspartate Amino Transf (AST/SGOT) 28 5-34 U/L Alanine Aminotransferase (ALT/SGPT) 26 0-55 U/L Alkaline Phosphatase 65 40-136 U/L Myoglobin 96.4 H 10.0-92.0 NG/ML Troponin I 0.060 H <0.028 NG/ML B-Type Natriuretic Peptide 3398.4 H <100.0 PG/ML Total Protein 7.4 6.4-8.2 GM/DL Albumin 4.3 3.2-4.5 GM/DL Influenza Type A (RT-PCR) Not Detected Not Detecte Influenza Type B (RT-PCR) Not Detected Not Detecte SARS-CoV-2 RNA (RT-PCR) Not Detected Not Detecte Urine Color YELLOW Urine Clarity CLEAR Urine pH 6.5 5-9 Urine Specific [place] 1.010 L 1.016-1.022 Urine Protein NEGATIVE NEGATIVE Urine Glucose (UA) NEGATIVE NEGATIVE Urine Ketones NEGATIVE NEGATIVE Urine Nitrite NEGATIVE NEGATIVE Urine Bilirubin NEGATIVE NEGATIVE Urine Urobilinogen 2.0 < = 1.0 MG/DL Urine Leukocyte Esterase NEGATIVE NEGATIVE Urine RBC (Auto) NEGATIVE NEGATIVE Urine RBC NONE /HPF Urine WBC RARE /HPF Urine Crystals PRESENT H /LPF Urine Amorphous Sediment FEW ALEX URATES H /LPF Urine Bacteria NEGATIVE /HPF Urine Casts PRESENT /LPF Urine Hyaline Casts 10-25 H /LPF Urine Mucus NEGATIVE /LPF Urine Culture Indicated NO Urine Opiates Screen NEGATIVE NEGATIVE Urine Oxycodone Screen NEGATIVE NEGATIVE Urine Methadone Screen NEGATIVE NEGATIVE Urine Propoxyphene Screen NEGATIVE NEGATIVE Urine Barbiturates Screen NEGATIVE NEGATIVE Ur Tricyclic Antidepressants Screen NEGATIVE NEGATIVE Urine Phencyclidine Screen NEGATIVE NEGATIVE Urine Amphetamines Screen POSITIVE H NEGATIVE Urine Methamphetamines Screen POSITIVE H NEGATIVE Urine Benzodiazepines Screen NEGATIVE NEGATIVE Urine Cocaine Screen NEGATIVE NEGATIVE Urine Cannabinoids Screen NEGATIVE NEGATIVE My Orders Orders - BRENDA RICHTER Cbc With Automated Diff (04/01/21 13:06) Magnesium (04/01/21 13:06) Chest 1 View, Ap/Pa Only (04/01/21 13:06) Ekg Tracing (04/01/21 13:06) Comprehensive Metabolic Panel (04/01/21 13:06) Myoglobin Serum (04/01/21 13:06) Protime With Inr (04/01/21 13:06) Partial Thromboplastin Time (04/01/21 13:06) O2 (04/01/21 13:06) Monitor-Rhythm Ecg Trace Only (04/01/21 13:06) Lipid Panel (04/02/21 06:00) Ed Iv/Invasive Line Start (04/01/21 13:06) BNP (04/01/21 13:06) Fibrin Degradation Products (04/01/21 13:06) Troponin I (04/01/21 13:06) Aspirin Chewable Tablet (Baby Aspirin Ch (04/01/21 13:15) Orthostatic Vital Signs (Adult (04/01/21 13:06) Ed Iv/Invasive Line Start (04/01/21 13:06) Ns Iv 500 Ml (Sodium Chloride 0.9%) (04/01/21 13:15) Covid 19 Inhouse Test (04/01/21 13:08) Influenza A And B By Pcr (04/01/21 13:08) Ua Culture If Indicated (04/01/21 13:29) Drug Screen Stat (Urine) (04/01/21 13:29) Medications Given in ED Current Medications Medications Dose Ordered Sig/Stefani Route Start Time Stop Time Status Last Admin Dose Admin Aspirin 324 mg ONCE ONCE PO 04/01/21 13:15 04/01/21 13:16 DC 04/01/21 13:20 324 MG Sodium Chloride 500 ml @ 0 mls/hr Q0M ONCE IV 04/01/21 13:15 04/01/21 13:16 DC 04/01/21 13:20 1,000 MLS/HR Vital Signs/I&O 04/01/21 12:46 Temp 36.9 Pulse 98 Resp 20 B/P (MAP) 108/80 (89) Pulse Ox 98 O2 Delivery Room Air Blood Pressure Mean: 89 Progress Progress Note #1: Time: 13:15 Progress Note EKG unrevealing. Patient has an extensive coronary history and 4 months ago he had an EF of 30 to 35% on echocardiogram with diffuse severe hypokinesis. Plan to check some orthostatics given 500 cc fluid bolus and reassess. He does have a marginal tachycardia 105. No evidence of ST elevation on his EKG. Check BMP and troponin. Make sure he has had 324 mg of aspirin. Plan to swab him for Covid given his history of recent malaise and exposures. Progress Note #2: Time: 14:44 Progress Note Patient was rather emotional during his stay and then remembered that he neglected to tell us earlier he did drop acid just prior to coming to the ER. Initial ECG Impression Date: Apr 01, 2021 Initial ECG Impression Time: 12:47 Initial ECG Rate: 96 Initial ECG Rhythm: Normal Sinus Initial ECG Intervals: QT (527) Initial ECG Impression: Nonspecific Changes Initial ECG Comparisson: Unchanged Comment Sinus rhythm with prolonged QTC and right bundle branch block. No clinically relevant ST elevation or depression. Diagnostic Imaging Diagonstic Imaging: Xray Plain Films/CT/US/NM/MRI: chest Comments [facility] [place], [place] NAME: YESENIA LOCKETT MED REC#: [id number] PT STATUS: REG ER : 1970 PHYSICIAN: BRENDA RICHTER MD ADMIT DATE: 04/01/21/ER Draft Date of Exam:04/01/21 CHEST 1 VIEW, AP/PA ONLY EXAM: CHEST 1 VIEW, AP/PA ONLY INDICATION: Chest pain. COMPARISON: Chest radiograph from 11/22/2020. FINDINGS: Cardiomegaly with normal central pulmonary vascularity. No focal pulmonary opacity. No pleural effusion or pneumothorax. No acute osseous findings. No significant change. IMPRESSION: No acute pulmonary findings. Dictated on workstation # [id number] Dict: 04/01/21 1417 Trans: 04/01/21 1419 [id number] Interpreted by: JESUS DOMINGO MD Electronically signed by: Reviewed: Reviewed by Me Departure Communication (Admissions) Time/Spoke to Admitting Phy: 14:55 Discussed the case with Dr. Flanagan who agrees to observe the patient with cardiac consultation. Time/Spoke to Consulting Phy: 14:50 Discussed the case with Dr. House, cardiology who is familiar with the patient and agrees to consult on the case. Impression Primary Impression: Syncope and collapse Additional Impressions: Heart failure Qualified Codes: I50.43 - Acute on chronic combined systolic (congestive) and diastolic (congestive) heart failure ACS (acute coronary syndrome) Disposition: ADMITTED INPATIENT Condition: Stable Admissions Decision to Admit Reason: Admit from ER (General) Decision to Admit/Date: Apr 01, 2021 Time/Decision to Admit Time: 14:30 Departure-Patient Inst. Referrals: NO,LOCAL PHYSICIAN (PCP/Family) Primary Care Physician BRENDA RICHTER Apr 01, 2021 13:14
[2021-04-01 13:34] LABS: BASOPHILS % (AUTO) 0 % (0-10); EOSINOPHILS % (AUTO) 1 % (0-10); HEMATOCRIT 42 % (40-54); HEMOGLOBIN 13.9 g/dL (13.3-17.7); LYMPHOCYTES # (AUTO) 2.2 10^3/uL (1.0-4.0); LYMPHOCYTES % (AUTO) 43 % (12-44); MEAN CORPUSCULAR HEMOGLOBIN 27 pg (25-34); MEAN CORPUSCULAR HGB CONC 33 g/dL (32-36); MEAN CORPUSCULAR VOLUME 81 fL (80-99); MEAN PLATELET VOLUME 10.1 fL (9.0-12.2); MONOCYTES # (AUTO) 0.3 10^3/uL (0.0-1.0); MONOCYTES % (AUTO) 7 % (0-12); NEUTROPHILS # (AUTO) 2.4 10^3/uL (1.8-7.8); NEUTROPHILS % (AUTO) 49 % (42-75); PLATELET COUNT 189 10^3/uL (130-400)
[2021-04-01 13:42] LABS: ALBUMIN 4.3 GM/DL (3.2-4.5); CHLORIDE 107 MMOL/L (98-107); POTASSIUM 3.8 MMOL/L (3.6-5.0); SODIUM 144 MMOL/L (135-145)
[2021-04-01 13:43] LABS: CALCIUM 9.5 MG/DL (8.5-10.1)
[2021-04-01 13:44] LABS: GLUCOSE 81 MG/DL (70-105); TOTAL PROTEIN 7.4 GM/DL (6.4-8.2)
[2021-04-01 13:45] LABS: CARBON DIOXIDE 22 MMOL/L (21-32)
[2021-04-01 13:46] LABS: BILIRUBIN,TOTAL 1.9 MG/DL (0.1-1.0)
[2021-04-01 13:47] LABS: BILIRUBIN,URINE NEGATIVE (NEGATIVE); CLARITY,URINE CLEAR; COLOR,URINE YELLOW; GLUCOSE, URINE (UA) NEGATIVE (NEGATIVE); KETONES,URINE NEGATIVE (NEGATIVE); LEUKOCYTE ESTERASE ,URINE NEGATIVE (NEGATIVE); NITRITE,URINE NEGATIVE (NEGATIVE); PH,URINE 6.5 (5-9); PROTEIN,URINE NEGATIVE (NEGATIVE)
[2021-04-01 13:48] LABS: ALKALINE PHOSPHATASE 65 U/L (40-136); CREATININE SERUM 1.35 MG/DL (0.60-1.30); GFR ESTIMATED > 60
[2021-04-01 13:49] LABS: BUN/CREATININE RATIO 8
[2021-04-01 13:50] LABS: MAGNESIUM 1.6 MG/DL (1.6-2.4)
[2021-04-01 13:51] LABS: ALANINE AMINOTRANSFERASE 26 U/L (0-55)
[2021-04-01 13:54] LABS: INR 1.1 (0.8-1.4); PROTHROMBIN TIME PATIENT 14.2 SEC (12.2-14.7)
[2021-04-01 14:01] LABS: AMPHETAMINE SCREEN, URINE POSITIVE (NEGATIVE); BARBITURATE SCREEN URINE NEGATIVE (NEGATIVE); BENZODIAZEPINES SCREEN URINE NEGATIVE (NEGATIVE); CANNABINOID SCREEN, URINE NEGATIVE (NEGATIVE); COCAINE SCREEN URINE NEGATIVE (NEGATIVE); METHADONE STAT NEGATIVE (NEGATIVE); METHAMPHETAMINE SCREEN URINE S POSITIVE (NEGATIVE); OPIATE SCREEN URINE NEGATIVE (NEGATIVE); OXYCODONE STAT NEGATIVE (NEGATIVE); PROPOXYPHENE STAT NEGATIVE (NEGATIVE); TRICYCLIC ANTIDEPRESSANTS SCRE NEGATIVE (NEGATIVE)
[2021-04-01 14:06] LABS: AMORPHOUS SEDIMENT,UR FEW AMOR URATES /LPF; BACTERIA,URINE NEGATIVE /HPF; WBC,URINE RARE /HPF
--- NOTE | 2021-04-01 14:20 | Diagnostic Imaging Report ---
EXAM: CHEST 1 VIEW, AP/PA ONLY INDICATION: Chest pain. COMPARISON: Chest radiograph from 11/22/2020. FINDINGS: Cardiomegaly with normal central pulmonary vascularity. No focal pulmonary opacity. No pleural effusion or pneumothorax. No acute osseous findings. No significant change. IMPRESSION: No acute pulmonary findings. Dictated by: Dictated on workstation # [id number]
[2021-04-01] MEDS ORDERED: NITROGLYCERIN 0.4 MG SL TABS BTL 25'S SL PRN (16:15)
[2021-04-01] MEDS ORDERED: CATHETER FLUSH 10 ML SYR IV PRN (16:15)
[2021-04-01] MEDS ORDERED: ACETAMINOPHEN 325 MG TABLET PO PRN ×2 (16:15→20:00)
[2021-04-01] MEDS ORDERED: ONDANSETRON 4 MG/2 ML (SDV) Z0FRAN IVP PRN (16:15)
[2021-04-01] MEDS ORDERED: FUROSEMIDE 40 MG/4 ML INJ (LASIX) IV NR (16:15)
[2021-04-01] MEDS: ENOXAPARIN 80 MG/0.8 ML (LOVENOX) SYR SC SCH (17:00)
[2021-04-01] MEDS ORDERED: polyethylene glycoL POWDER 17 GM (MIRALAX) PACK PO PRN (20:00)
[2021-04-01] MEDS ORDERED: MELATONIN 3 MG TABLET PO PRN (20:00)
[2021-04-01] MEDS ORDERED: ANTACID SUSP 30 ML UDC (MYLANTA) PO PRN (20:00)
[2021-04-01] MEDS ORDERED: ONDANSETRON 4 MG (ZOFRAN) ORAL DISSOLVE TAB PO PRN (20:00)
[2021-04-01] MEDS ORDERED: diphenhydrAMINE 25 MG TAB (BENADRYL) PO PRN (20:00)
[2021-04-01] MEDS ORDERED: ONDANSETRON 4 MG/2 ML (SDV) Z0FRAN IV PRN (20:00)
[2021-04-01] MEDS: CATHETER FLUSH 10 ML SYR IV SCH (20:49)
[2021-04-02 02:23] LABS: BASOPHILS % (AUTO) 0 % (0-10); EOSINOPHILS # (AUTO) 0.1 10^3/uL (0.0-0.3); EOSINOPHILS % (AUTO) 1 % (0-10); HEMATOCRIT 40 % (40-54); HEMOGLOBIN 13.2 g/dL (13.3-17.7); LYMPHOCYTES # (AUTO) 2.7 10^3/uL (1.0-4.0); LYMPHOCYTES % (AUTO) 52 % (12-44); MEAN CORPUSCULAR HEMOGLOBIN 27 pg (25-34); MEAN CORPUSCULAR HGB CONC 33 g/dL (32-36); MEAN CORPUSCULAR VOLUME 81 fL (80-99); MEAN PLATELET VOLUME 10.4 fL (9.0-12.2); MONOCYTES # (AUTO) 0.4 10^3/uL (0.0-1.0); MONOCYTES % (AUTO) 7 % (0-12); NEUTROPHILS # (AUTO) 2.1 10^3/uL (1.8-7.8); NEUTROPHILS % (AUTO) 39 % (42-75); PLATELET COUNT 183 10^3/uL (130-400); WHITE BLOOD COUNT 5.3 10^3/uL (4.3-11.0)
[2021-04-02 02:27] LABS: CHLORIDE 103 MMOL/L (98-107); POTASSIUM 3.2 MMOL/L (3.6-5.0); SODIUM 142 MMOL/L (135-145)
[2021-04-02 02:29] LABS: GLUCOSE 95 MG/DL (70-105); TRIGLYCERIDES 90 MG/DL (<150); VLDL CHOLESTEROL 18 MG/DL (5-40)
[2021-04-02 02:30] LABS: CARBON DIOXIDE 24 MMOL/L (21-32)
[2021-04-02 02:33] LABS: CREATININE SERUM 1.28 MG/DL (0.60-1.30); GFR ESTIMATED > 60
[2021-04-02 02:34] LABS: BUN/CREATININE RATIO 9; CHOLESTEROL 128 MG/DL (< 200)
[2021-04-02 02:35] LABS: HDL CHOLESTEROL 41 MG/DL (40-60)
[2021-04-02] MEDS: ENOXAPARIN 80 MG/0.8 ML (LOVENOX) SYR SC SCH (03:34)
[2021-04-02] MEDS: CATHETER FLUSH 10 ML SYR IV SCH (03:35)
[2021-04-02 04:35] VITALS: BP 116/77
[2021-04-02 08:33] VITALS: BP 125/97
[2021-04-02] MEDS ORDERED: CLOPIDOGREL 75 MG (PLAVIX) TABLET PO SCH (09:00)
[2021-04-02] MEDS ORDERED: PANTOPRAZOLE 40 MG (PROTONIX) TAB PO SCH (09:00)
[2021-04-02] MEDS ORDERED: ASPIRIN E.C. 81 MG (ECOTRIN) TAB PO SCH (09:00)
--- NOTE | 2021-04-02 10:01 | Consultation-Cardiology ---
HPI-Cardiology Cardiology Consultation Date of Consultation 04/02/21 Date of Admission Time Seen by Provider: 09:55 Indication: Chest pain, syncope HPI Patient is a 51 y.o. male well known to me with history of CAD, ischemic cardiomyopathy, methamphetamine use and medical noncompliance. Most of HPI is obtained through medical records as patient does not want to answer questions at this time. Was in [place] yesterday and had syncopal episode. Reporting episode of chest pain prior to syncopal episode. Currently denies any chest pain, dyspnea, dizziness or lightheadedness. Admits to using methamphetamine 4-5 days ago. Was evaluated last in our office in December 2020, and was referred to Dr. Granados for evaluation for bypass, who then referred to Dr. Cid at , where patient did not show up for appt x 2. Home Medications & Allergies Allergies: Coded Allergies: No Known Drug Allergies (Unverified , 10/06/10) Home Medication List Reviewed: Yes [id number] Hx Patient Social History Marital Status: single Employed/Student: unemployed Drug of Choice: CANNIBUS Smoking Status: Current Everyday Smoker Type Used: Cigarettes Recent Hopitalizations: No Have you traveled recently?: No Alcohol Use?: No Substance type: Amphetamines, Methamphetamine, Hallucinogens, Marijuana Immunizations Up To Date Tetanus Booster (TDap): Unknown Past Medical History CAD, CHF, HTN, HLP, illicit drug use. Family Medical History Significant Family History: No Pertinent Family Hx Review of Systems-General Review of Systems Constitutional: No chills, No diaphoresis; dizziness; No fever; malaise EENTM: No blurred vision, No double vision Respiratory: No cough, No dyspnea on exertion Cardiovascular: chest pain; No edema; Hx of Intervention, syncope, vascular heart diseas Gastrointestinal: No abdominal pain, No constipation Musculoskeletal: No back pain, No joint pain Skin: No pruritus, No rash Psychiatric/Neurological: Denies Headache, Denies Numbness All Other Systems Reviewed Negative Unless Noted: Yes Reviewed Test Results Reviewed Test Results Lab Laboratory Tests 04/01/21 13:15: White Blood Count 5.0, Red Blood Count 5.13, Hemoglobin 13.9, Hematocrit 42, Mean Corpuscular Volume 81, Mean Corpuscular Hemoglobin 27, Mean Corpuscular Hemoglobin Concent 33, Red Cell Distribution Width 15.0H, Platelet Count 189, Mean Platelet Volume 10.1, Immature Granulocyte % (Auto) 0, Neutrophils (%) (Auto) 49, Lymphocytes (%) (Auto) 43, Monocytes (%) (Auto) 7, Eosinophils (%) (Auto) 1, Basophils (%) (Auto) 0, Neutrophils # (Auto) 2.4, Lymphocytes # (Auto) 2.2, Monocytes # (Auto) 0.3, Eosinophils # (Auto) 0.0, Basophils # (Auto) 0.0, Immature Granulocyte # (Auto) 0.0, Prothrombin Time 14.2, INR Comment 1.1, Activated Partial Thromboplast Time 35, D-Dimer 0.71H, Sodium Level 144, Potassium Level 3.8, Chloride Level 107, Carbon Dioxide Level 22, Anion Gap 15H, Blood Urea Nitrogen 11, Creatinine 1.35H, Estimat Glomerular Filtration Rate > 60, BUN/Creatinine Ratio 8, Glucose Level 81, Calcium Level 9.5, Corrected Calcium 9.3, Magnesium Level 1.6, Total Bilirubin 1.9H, Aspartate Amino Transf (AST/SGOT) 28, Alanine Aminotransferase (ALT/SGPT) 26, Alkaline Phosphatase 65, Myoglobin 96.4H, Troponin I 0.060H, B-Type Natriuretic Peptide 3398.4H, Total Protein 7.4, Albumin 4.3 04/01/21 13:25: Influenza Type A (RT-PCR) Not Detected, Influenza Type B (RT-PCR) Not Detected, SARS-CoV-2 RNA (RT-PCR) Not Detected 04/01/21 13:30: Urine Color YELLOW, Urine Clarity CLEAR, Urine pH 6.5, Urine Specific Rupert 1.010L, Urine Protein NEGATIVE, Urine Glucose (UA) NEGATIVE, Urine Ketones NEGATIVE, Urine Nitrite NEGATIVE, Urine Bilirubin NEGATIVE, Urine Urobilinogen 2.0, Urine Leukocyte Esterase NEGATIVE, Urine RBC (Auto) NEGATIVE, Urine RBC NONE, Urine WBC RARE, Urine Crystals PRESENTH, Urine Amorphous Sediment FEW ALEX URATESH, Urine Bacteria NEGATIVE, Urine Casts PRESENT, Urine Hyaline Casts 10- 25H, Urine Mucus NEGATIVE, Urine Culture Indicated NO, Urine Opiates Screen NEGATIVE, Urine Oxycodone Screen NEGATIVE, Urine Methadone Screen NEGATIVE, Urine Propoxyphene Screen NEGATIVE, Urine Barbiturates Screen NEGATIVE, Ur Tricyclic Antidepressants Screen NEGATIVE, Urine Phencyclidine Screen NEGATIVE, Urine Amphetamines Screen POSITIVEH, Urine Methamphetamines Screen POSITIVEH, Urine Benzodiazepines Screen NEGATIVE, Urine Cocaine Screen NEGATIVE, Urine Cannabinoids Screen NEGATIVE 04/01/21 19:35: Troponin I 0.104H 04/02/21 02:08: White Blood Count 5.3, Red Blood Count 4.94, Hemoglobin 13.2L, Hematocrit 40, Mean Corpuscular Volume 81, Mean Corpuscular Hemoglobin 27, Mean Corpuscular Hem oglobin Concent 33, Red Cell Distribution Width 15.0H, Platelet Count 183, Mean Platelet Volume 10.4, Immature Granulocyte % (Auto) 0, Neutrophils (%) (Auto) 39L, Lymphocytes (%) (Auto) 52H, Monocytes (%) (Auto) 7, Eosinophils (%) (Auto) 1, Basophils (%) (Auto) 0, Neutrophils # (Auto) 2.1, Lymphocytes # (Auto) 2.7, Monocytes # (Auto) 0.4, Eosinophils # (Auto) 0.1, Basophils # (Auto) 0.0, Immature Granulocyte # (Auto) 0.0, Sodium Level 142, Potassium Level 3.2L, Chloride Level 103, Carbon Dioxide Level 24, Anion Gap 15H, Blood Urea Nitrogen 12, Creatinine 1.28, Estimat Glomerular Filtration Rate > 60, BUN/Creatinine Ratio 9, Glucose Level 95, Calcium Level 9.0, Troponin I 0.078H, Triglycerides Level 90, Cholesterol Level 128, LDL Cholesterol Direct 74, VLDL Cholesterol 18, HDL Cholesterol 41 ECG Impression ECG Initial ECG Rhythm: S.Tach Physical Exam Physical Exam Vital Signs Vital Signs - First Documented 04/01/21 12:46 Temp 36.9 Pulse 98 Resp 20 B/P (MAP) 108/80 (89) Pulse Ox 98 O2 Delivery Room Air Capillary Refill : Less Than 3 Seconds Height, Weight, BMI Height: 5'5.00" Weight: 200lbs. oz. 90.187205uz; 24.24 BMI Method:Stated General Appearance: No Apparent Distress, Chronically ill HEENT: PERRL/EOMI, Pharynx Normal, Moist Mucous Membranes Neck: Full Range of Motion, Normal Inspection, Non Tender Respiratory: Chest Non Tender, Lungs Clear, Normal Breath Sounds, No Accessory Muscle Use, No Respiratory Distress Cardiovascular: Regular Rate, Rhythm, No Edema, Normal Peripheral Pulses Gastrointestinal: Non Tender, Soft Extremity: Normal Capillary Refill, Normal Inspection, No Pedal Edema Neurologic/Psychiatric: Alert, Oriented x3, No Motor/Sensory Deficits Skin: Normal Color, Warm/Dry A/P-Cardiology Admission Diagnosis NSTEMI Syncope CAD Ischemic cardiomyopathy Assessment/Plan NSTEMI, troponin mildly elevated. Patient reports no chest pain at this time. Will continue with conservative management and continue to monitor. Syncope, reports syncopal episode at [facility] yesterday, was not wearing his Life vest. Coronary artery disease, underwent LHC in July 2020 with long stent in the mid LAD using CARMINA 2.25 x38. Had NSTEMI on Nov 16 after not taking his medications. Had recurrent NSTEMI November 23. Cardiac catheterization done showed severe multi-vessel coronary artery disease including severe stenosis at the ostial diagonal artery that is a hairline artery, subtotal occlusion of the OM branch that is a hairline artery, not amendable to intervention. Patent stent in the mid to distal LAD, prx to the stent there is area of mod to severe stenosis, nonobstructive lesion, at the far distal portion of the LAd there is an area of severe stenosis, very small artery. Tortuous RCA with 2 mod to severe lesions, nonobstructive. EF 10-15%. Conservative management was recommended d/t the fact the the patient is noncompliant. The lesion prox to the stent in the LADin nonobstructive lesion at this point, putting an overlapped stent increased the risk of stent thrombosis in case patient cont to be noncompliant. Maintained on ASA and Plavix. Patient was referred to Dr. Parks in December 2020 for bypass eval and referred on to Dr. Cid at after not showing up for further testing. Patient did not make his appts at . Ischemic cardiomyopathy with EF 10-15% per echo done Oct 2020. Maintained on Coreg and Entreso, Lasix. Has life vest, is noncompliant with wearing it. HTN, restart home medications and continue to monitor. HLP, maintained on statin Methamphetamine use Marajuana use Medical noncompliance. OK for discharge from cardiology standpoint. Discussed in length the importance of compliance with wearing his LifeVest, with his medications and with making his appointments to . Patient voiced understanding. Thank you for allowing us to participate in the management of Mr. Milligan. This is Mariam Ocasio PA-C, as a scribe for Dr. Wills. Patient was seen and evaluated with Mariam, he was laying down in bed, feeling better Had syncopal episode, probably malignant arrhythmia, had a long discussion with the patient about compliance with medication, he is scheduled to see a cardiothoracic surgeon at for his ischemic cardiomyopathy and he missed his appointment twice. He need to call and make a new appointment and continue to wear his LifeVest Reviewed his medication, continue on current medication, continue with aggressive treatment and monitor tolerance and response Clinical Quality Measures AMI/AHF: ASA po Prior to arrival: No MARIAM ZIMMERMAN Apr 02, 2021 10:01 am YVETTE WILLS MD Apr 02, 2021 3:08 pm
[2021-04-02 11:27] VITALS: BP 109/77
[2021-04-02 15:40] VITALS: BP 109/77
--- NOTE | 2021-04-03 12:56 | Physician Query-Final Dx ---
SHILPI MOE 04/03/21 1256: Final Diagnosis Give Final Diagnosis Please give Final Diagnosis ASHLEY FLANAGAN MD 04/15/21 1031: Final Diagnosis Give Final Diagnosis Syncope, polysubstance abuse SHILPI MOE Apr 03, 2021 12:56 ASHLEY FLANAGAN MD Apr 15, 2021 10:31
== END 2021-04-02 15:40 | disposition home or self-care (01) ==
LOC: ER 12:40 → UNDOADMOB 15:00 → 4TH 15:00 → UNDODISOB 04-02 15:45
PROVIDERS: ADMIT Internal Medicine; ATTEND Internal Medicine
DX: R55 Syncope and collapse (principal); F15.10 Other stimulant abuse, uncomplicated; F12.10 Cannabis abuse, uncomplicated; I25.10 Atherosclerotic heart disease of native coronary artery without angina pectoris; I21.4 Non-ST elevation (NSTEMI) myocardial infarction; I11.0 Hypertensive heart disease with heart failure; E78.5 Hyperlipidemia, unspecified; I50.43 Acute on chronic combined systolic (congestive) and diastolic (congestive) heart failure; I24.9 Acute ischemic heart disease, unspecified; I25.5 Ischemic cardiomyopathy; R45.6 Violent behavior; K21.9 Gastro-esophageal reflux disease without esophagitis; F41.9 Anxiety disorder, unspecified; F17.210 Nicotine dependence, cigarettes, uncomplicated; Z79.02 Long term (current) use of antithrombotics/antiplatelets; Z79.82 Long term (current) use of aspirin; Z79.899 Other long term (current) drug therapy; Z91.19 Patient's noncompliance with other medical treatment and regimen
CPT/HCPCS: 71045; 80048; 80053; 80061; 80306; 81000; 83735; 83874; 83880; 84484 ×2; 85025 ×2; 85379; 85610; 85730; 87636; 93005; 93041; 93306; 96360; 99284; G0378; 36415

== ENCOUNTER 2023-01-14 12:53 | Outpatient (RCR) | payer MEDICAID ==
[~2023-01-14 12:53] MED LIST changes: +POTA-169 PO; -POTA20TA8 PO
== END 2023-01-17 | disposition home or self-care (01) ==
PROVIDERS: ATTEND Internal Medicine
DX: F80.1 Expressive language disorder (principal)

== ENCOUNTER 2023-05-04 01:12 | Observation (INO) | payer MEDICAID ==
[2023-05-04] VITALS (12 sets, daily range): BP systolic 111–135; BP diastolic 73–109
[~2023-05-04] VITALS: Ht 165 cm; Wt 79.5 kg
[2023-05-04] MEDS ORDERED: ACETAMINOPHEN 325 MG TABLET PO PRN (02:30)
[2023-05-04] MEDS ORDERED: HOLD METFORMIN - RECEIVED CONTRAST 20 ML VIAL IV SCH (03:15)
[2023-05-04] MEDS ORDERED: IOHEXOL 350 MG/ML 100 ML (OMNIPAQUE 350) VIAL IV ONE (03:15)
[2023-05-04] MEDS ORDERED: NS 100 ML (IVPB) BAG IV ONE (03:15)
[2023-05-04 05:14] LABS: HEMATOCRIT 39 % (40-54); HEMOGLOBIN 12.7 g/dL (13.3-17.7); MEAN CORPUSCULAR HEMOGLOBIN 24 pg (25-34); MEAN CORPUSCULAR HGB CONC 33 g/dL (32-36); MEAN CORPUSCULAR VOLUME 74 fL (80-99); PLATELET COUNT 252 10^3/uL (130-400); WHITE BLOOD COUNT 6.1 10^3/uL (4.3-11.0)
[2023-05-04 05:54] LABS: BILIRUBIN,TOTAL 2.3 MG/DL (0.1-1.0); CALCIUM 9.4 MG/DL (8.5-10.1); CREATININE SERUM 1.19 MG/DL (0.60-1.30); POTASSIUM 3.5 MMOL/L (3.6-5.0); TOTAL PROTEIN 7.1 GM/DL (6.4-8.2)
--- NOTE | 2023-05-04 06:22 | Diagnostic Imaging Report ---
PROCEDURE: CT angiography of the head and CT angiography of the neck with and without contrast. TECHNIQUE: Contiguous noncontrast images were obtained from the skull base through the vertex. After intravenous contrast administration, helical CT angiography of the neck was performed. Source data was reformatted into 3D MIP projections. Delayed post contrast acquisition was also obtained. Auto Exposure Controls were utilized during the CT exam to meet ALARA standards for radiation dose reduction. INDICATION: Stroke, left-sided CVA. COMPARISON: 12/31/2017 FINDINGS: Precontrast images of the brain demonstrate generalized parenchymal volume loss. There is no midline shift or significant mass effect. No acute intracranial hemorrhage is seen. There is no CT evidence of acute territorial ischemia. There is hypodensity in the superior left temporal lobe which is new since 2018, but appears to be subacute or chronic. There is hypodensity in the right frontal white matter which is likely from chronic microvascular disease and stable since 2018. There is a chronic appearing hypodensity in the left cerebellum which is new since 2018. No definite CT evidence of acute territorial ischemia is seen. There is hyperdensity with streak artifact in the region of the anterior communicating artery, may be from aneurysm coiling. The calvarium appears intact. Paranasal sinuses appear clear. Postcontrast images demonstrate no enhancing lesions. The right common carotid artery is widely patent. The right internal carotid artery demonstrates atherosclerosis, particularly in the cavernous and intracranial portion without high-grade stenosis seen. The left internal carotid artery has atherosclerosis as well without high-grade stenosis. The left common carotid artery appears patent. The right vertebral artery is dominant. The anterior communicating artery is not well seen due to streak artifact from the coiling. Visible portions of the anterior cerebral arteries appear patent. The middle cerebral arteries appear patent. The right posterior communicating artery is robust. The right P1 segment is not well seen. The right posterior cerebral artery appears to be patent. The left posterior communicating artery is also robust and the left posterior superior cerebral P1 segment is very diminutive but the remainder of the [employer]GER appears patent. The basilar artery is mildly diminutive but appears patent. The superior cerebellar arteries are normal. There are degenerative changes in the cervical spine. Marked emphysematous changes are seen in the lung apices. IMPRESSION: 1. No high-grade stenosis or occlusion is seen in the arteries of the head and neck. 2. 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 3. Hypodensities in the left temporal lobe and left cerebellum are new since 2018 but appear to be chronic. There are findings of chronic microvascular disease. If there is persistent concern for infarct, recommend MRI to evaluate. Findings reported to Dr. Rizo by the overnight preliminary radiology service at 4:24 AM on 05/04/2023. There is no significant change from the preliminary report. Dictated by: Dictated on workstation # [id number]
[2023-05-04] MEDS ORDERED: APIX5TAB PO (07:24)
[2023-05-04] MEDS ORDERED: POTASSIUM CHLORIDE 20 MEQ TABLET PO NR (08:00)
[2023-05-04] MEDS: ASPIRIN 325 MG TABLET PO SCH (08:12)
[2023-05-04] MEDS: APIXABAN 5 MG TABLET PO SCH ×2 (08:12→21:30)
--- NOTE | 2023-05-04 08:52 | Physical Therapy Evaluation ---
PT Evaluation-General Medical Diagnosis Admission Date May 04, 2023 at 02:08 Medical Diagnosis: CVA Onset Date: May 04, 2023 Therapy Diagnosis Therapy Diagnosis: debility/weakness Height/Weight Height (Feet): 5 Height (Inches): 5.00 Weight (Pounds): 200 Precautions Precautions/Isolations: Fall Prevention, Standard Precautions Referral Physician: Darrius Reason for Referral: Evaluation/Treatment Medical History Pertinent Medical History: HTN, Smoking Additional Medical History polysubstance abuse/violent behavior Current History EMS secondary to CVA Reviewed History: Yes Social History Home: Apartment Current Living Status: Spouse Entry Into Home: Level Entry Prior Prior Level of Function SCALE: Activities may be completed with or without assistive devices. 0-Usdrvwrqpc-qsaubcv completes the activity by him/herself with no assistance from a helper. 5-Set-up or Clean-up Assistance-helper sets up or cleans up; patient completes activity. [place]da assists only prior to or following the activity. 4-Supervision or Touching Assistance-helper provides verbal cues and/or touching/steadying and/or contact guard assistance as patient completes activity. Assistance may be provided throughout the activity or intermittently. 3-Partial/Moderate Assistance-helper does LESS THAN HALF the effort. [place]da lifts, holds or supports trunk or limbs, but provides less than half the effort. 2-Substantial/Maximal Assistance-helper does MORE THAN HALF the effort. [place] lifts or holds trunk or limbs and provides more than half the effort. 4-Sjppalsob-rkqjvs does ALL the effort. Patient does none of the effort to complete the activity. Or, the assistance of 2 or more helpers is required for the patient to complete the activity. If activity was not attempted, code reason: 7-Patient Refused. 9-Not Applicable-not attempted and the patient did not perform the activity before the current illness, exacerbation or injury. 10-Not Attempted due to Environmental Limitations-(lack of equipment, weather restraints, etc.). 88-Not Attempted due to Medical Conditions or Safety Concerns. Bed Mobility: 6 Transfers (B,C,W/C): 6 Gait: 6 Indoor Mobility (Ambulation): Independent Prior Devices Use: Other-see list below Prior Device Use: cane per patient report PT Evaluation-Current Subjective "Why do I have to do this shit? I just want to sleep." Reluctantly agrees to PT. ROM/Strength ROM Lower Extremities bilateral LE WFL Strength Lower Extremities 3+/5 grossly bilateral LE all planes Integumentary/Posture Bowel Incontinence: No Bladder Incontinence: No Posture WFL Neuromuscular (Tone, Coordination, Reflexes) diminished coordination due to weakness Sensory Hearing: Impaired Transfers Sit to Lying (QC): 4 Lying to Sitting/Side of Bed(Q: 4 Sit to Stand (QC): 3 Gait Mode of Locomotion: Walk Anticipated Mode of Locomotion: Walk Walk 10 feet (QC): 3 Walk 50 ft with 2 Turns(QC): 3 Walk 150 ft (QC): 3 Distance: 150' Gait Assistive Device: Cane Single Point Comments/Gait Description slightly unsteady with PT correct Balance Sitting Static: Fair Sitting Dynamic: Fair Standing Static: Fair Standing Dynamic: Fair (Fair-) Assessment/Needs Patient will benefit from skilled PT to address functional strength and mobility to improve current LOF to safely return to home at maximum LOF. Rehab Potential: Fair Post Rehab Potential-Barriers: compliance PT Chcf Goals Chcf Goals PT Chcf Goals Time Frame: May 22, 2023 Roll Left & Right (QC): 6 Sit to Lying (QC): 6 Lying-Sitting on Side/Bed(QC): 6 Sit to Stand (QC): 6 Chair/[id number]-ac-Xedfb Xfer(QC): 6 Toilet Transfer (QC): 6 Walk 10 feet (QC): 6 Walk 50ft with 2 Turns (QC): 6 Walk 150 ft (QC): 6 PT Plan Problem List Problem List: Activity Tolerance, Functional Strength, Safety, Balance, Gait, Transfer Treatment/Plan Treatment Plan: Continue Plan of Care Treatment Plan: Bed Mobility, Education, Functional Activity Yohana, Functional Strength, Gait, Safety, Therapeutic Exercise, Transfers Treatment Duration: May 22, 2023 Frequency: 5 times per week Estimated Hrs Per Day: .25 hour per day Time Time In: 805 Time Out: 819 DATE: May 04, 2023 Total Billed Treatment Time: 14 Total Billed Treatment 1 visit [facility] 14 min BONG ODOM PT May 04, 2023 08:52
--- NOTE | 2023-05-04 09:00 | History & Physical ---
HPI History of Present Illness: Pt sent from [place] ER after he was seen for acute onset of vertigo and nausea and reported acute CVA, not a candidate for medical thrombolysis due to Eliquis use. This morning he is very drowsy. He states he went to the hospital due to food poisoning. He had chicken which he thinks started it, fried chicken, he ate it and then couldn't sit up anymore or anything. When asked to clarify why he can't sit up, he says "I just can't hold myself". He says he also can't walk by himself. He says he was all right before that. He denies vomiting. He denies fever. When asking about past medical history he has difficulty listing medical problems or surgeries, states "You mean what hospitals I have been to?" and that I should talk to his girlfriend who knows all of those, says he has been to [place] a couple of times and [place] and here. He doesn't know the heart doctor's name. Source: patient Exam Limitations: clinical condition Date seen by provider: May 04, 2023 Time Seen by Provider: 08:58 Attending Physician [place] PCP Admitting Physician: Laura Rizo MD Attending Physician: Laura Rizo MD Consult Date of Admission May 04, 2023 at 02:08 Home Medications Home Medications Reviewed patient Home Medication Reconciliation performed by pharmacy medication reconciliations oil and gas exploration technician and/or nursing. Patients Allergies have been reviewed. Allergies Coded Allergies: No Known Drug Allergies (Unverified , 10/06/10) [id number]-[id number] Hx Patient Social History Drug of Choice: CANNIBUS Smoking Status: Current Everyday Smoker Recent Hopitalizations: No Alcohol Use?: No Substance type: Methamphetamine, Nicotine, Marijuana Tobacco type used: Cigarettes Immunizations Up To Date Tetanus Booster (TDap): Unknown Past Medical History Past Medical History 1. Tobaccoism 2. Illicit Drug Use 3. History of Subarachnoid hemorrhage with aneurysm coiling 4. Hypertension 5. Congestive heart failure 6. Coronary artery disease with stenting Past Surgical History 1. Aneurysm coiling 2. Coronary artery stenting Family Medical History Significant Family History: No Pertinent Family Hx Review of Systems ([facility]) Constitutional: No fever EENTM: No nose congestion, No throat pain Respiratory: cough; No short of breath Cardiovascular: No chest pain Gastrointestinal: No abdominal pain, No constipation, No diarrhea, No nausea, No vomiting Genitourinary: dysuria Musculoskeletal: joint pain (yesterday arm, when asked one or both, states "don't know") Reviewed Test Results Reviewed Test Results Lab Laboratory Tests Test 05/04/23 04:47 Range/Units White Blood Count 6.1 4.3-11.0 10^3/uL Red Blood Count 5.25 4.30-5.52 10^6/uL Hemoglobin 12.7 L 13.3-17.7 g/dL Hematocrit 39 L 40-54 % Mean Corpuscular Volume 74 L 80-99 fL Mean Corpuscular Hemoglobin 24 L 25-34 pg Mean Corpuscular Hemoglobin Concent 33 32-36 g/dL Red Cell Distribution Width 15.9 H 10.0-14.5 % Platelet Count 252 130-400 10^3/uL Mean Platelet Volume 10.0 9.0-12.2 fL Sodium Level 138 135-145 MMOL/L Potassium Level 3.5 L 3.6-5.0 MMOL/L Chloride Level 103 98-107 MMOL/L Carbon Dioxide Level 22 21-32 MMOL/L Anion Gap 13 5-14 MMOL/L Blood Urea Nitrogen 11 7-18 MG/DL Creatinine 1.19 0.60-1.30 MG/DL Estimat Glomerular Filtration Rate 73 BUN/Creatinine Ratio 9 Glucose Level 86 70-105 MG/DL Calcium Level 9.4 8.5-10.1 MG/DL Corrected Calcium 9.4 8.5-10.1 MG/DL Total Bilirubin 2.3 H 0.1-1.0 MG/DL Aspartate Amino Transf (AST/SGOT) 26 5-34 U/L Alanine Aminotransferase (ALT/SGPT) 33 0-55 U/L Alkaline Phosphatase 82 40-136 U/L Total Protein 7.1 6.4-8.2 GM/DL Albumin 4.0 3.2-4.5 GM/DL Triglycerides Level 60 <150 MG/DL Cholesterol Level 103 < 200 MG/DL LDL Cholesterol Direct 58 1-129 MG/DL VLDL Cholesterol 12 5-40 MG/DL HDL Cholesterol 39 L 40-60 MG/DL Radiology CTA head/neck 05/04/23: IMPRESSION: 1. No high-grade stenosis or occlusion is seen in the arteries of the head and neck. 2. 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 3. Hypodensities in the left temporal lobe and left cerebellum are new since 2018 but appear to be chronic. There are findings of chronic microvascular disease. If there is persistent concern for infarct, recommend MRI to evaluate. Physical Exam-([facility]) Physical Exam Vital Signs VS - Last 72 Hours, by Label 05/04/23 05/04/23 05/04/23 05/04/23 02:13 02:13 02:13 02:28 Pulse 98 96 98 98 Resp 19 23 B/P (MAP) 135/109 135/109 (117) 127/94 (105) Pulse Ox 96 96 97 O2 Delivery Room Air Room Air 05/04/23 05/04/23 05/04/23 05/04/23 02:30 02:30 02:45 02:45 Temp 36.5 Pulse 89 89 93 92 Resp 20 20 26 12 B/P (MAP) 123/99 (107) 123/99 132/98 132/98 (109) Pulse Ox 100 96 99 97 O2 Delivery Room Air Room Air 05/04/23 05/04/23 05/04/23 05/04/23 02:46 02:51 03:00 03:00 Pulse 92 92 Resp 15 15 B/P (MAP) 121/89 (99) 121/89 Pulse Ox 96 99 99 O2 Delivery Room Air Room Air O2 Flow Rate 0.00 FiO2 05/04/23 05/04/23 05/04/23 05/04/23 03:30 03:30 04:00 04:09 Pulse 99 99 90 Resp 36 22 31 B/P (MAP) 127/106 (110) 127/106 134/102 (113) Pulse Ox 95 95 95 O2 Delivery Room Air Room Air 05/04/23 05/04/23 05/04/23 05/04/23 07:05 07:16 08:00 11:25 Temp 36.3 36.7 Pulse 91 90 105 Resp 14 23 B/P (MAP) 111/79 (90) 121/99 (106) Pulse Ox 98 95 O2 Delivery Room Air Room Air Room Air 05/04/23 12:54 Pulse 75 Capillary Refill : General Appearance: no apparent distress HEENT: PERRL/EOMI Respiratory: lungs clear, normal breath sounds Cardiovascular: regular rate, rhythm, no murmur, other (distant heart sounds) Gastrointestinal: normal bowel sounds, non tender, soft Extremities: no pedal edema Neurologic/Psychiatric: web publisher II-XII nml as tested, oriented x 3 (uncertain of number date, but knows day, month and year); No motor weakness; other (normal finger to nose testing, note of mild horizontal nystagmus with all eye po sitions) Skin: warm/dry Assessment/Plan Assessment/Plan Admission Status: Observation (1) Vertigo Status: Acute Assessment & Plan: Per outside hospital reported to have findings of acute CVA, however CTA head does not show acute findings. Echo pending, Cardiology consulted. PT, OT. MRI ordered. (2) HTN (hypertension) Status: Chronic Assessment & Plan: Resume home meds (3) HLD (hyperlipidemia) Status: Chronic Assessment & Plan: Resume home meds (4) Ischemic cardiomyopathy Status: Acute Assessment & Plan: Resume home meds (5) HFrEF (heart failure with reduced ejection fraction) Status: Acute Assessment & Plan: Severe with EF 10% last echo. Cardiology consulted, appreciate recommendations. Resume home medications, echo pending. (6) DVT prophylaxis Status: Acute Assessment & Plan: Home LAURA Noriega MD May 04, 2023 09:00
--- NOTE | 2023-05-04 12:54 | Consultation-Cardiology ---
HPI-Cardiology Cardiology Consultation Date of Consultation 05/04/23 Date of Admission Time Seen by Provider: 12:48 Indication: Congestive heart failure HPI 53-year-old gentleman with history of congestive heart failure, coronary artery disease, transferred from [place] emergency room, had new onset of vertigo and nausea. Diagnosed with acute CVA. Patient reported that he has been compliant with his medication, denied any chest pain, no shortness of breath. No palpitation. Last seen in my office was April 30, 2022, did not return for follow-up, did not have his test done. Home Medications & Allergies Allergies: Coded Allergies: No Known Drug Allergies (Unverified , 10/06/10) Home Medication List Reviewed: Yes PWQ-Olerzb-Iyhidz Hx Patient Social History Marital Status: single Employed/Student: unemployed Drug of Choice: CANNIBUS Smoking Status: Current Everyday Smoker Type Used: Cigarettes Recent Hopitalizations: No Alcohol Use?: No Substance type: Methamphetamine, Nicotine, Marijuana Immunizations Up To Date Tetanus Booster (TDap): Unknown Past Medical History Discussed below Family Medical History Significant Family History: No Pertinent Family Hx Review of Systems-General Review of Systems Constitutional: see HPI, dizziness; No fever EENTM: No nose congestion, No throat pain Respiratory: cough; No short of breath Cardiovascular: No chest pain Gastrointestinal: No abdominal pain, No constipation, No diarrhea, No nausea, No vomiting Genitourinary: dysuria Musculoskeletal: joint pain (yesterday arm, when asked one or both, states "don't know") Skin: no symptoms reported, see HPI Psychiatric/Neurological: No Symptoms Reported, See HPI Reviewed Test Results Reviewed Test Results Lab Laboratory Tests Test 05/04/23 04:47 Range/Units White Blood Count 6.1 4.3-11.0 10^3/uL Red Blood Count 5.25 4.30-5.52 10^6/uL Hemoglobin 12.7 L 13.3-17.7 g/dL Hematocrit 39 L 40-54 % Mean Corpuscular Volume 74 L 80-99 fL Mean Corpuscular Hemoglobin 24 L 25-34 pg Mean Corpuscular Hemoglobin Concent 33 32-36 g/dL Red Cell Distribution Width 15.9 H 10.0-14.5 % Platelet Count 252 130-400 10^3/uL Mean Platelet Volume 10.0 9.0-12.2 fL Sodium Level 138 135-145 MMOL/L Potassium Level 3.5 L 3.6-5.0 MMOL/L Chloride Level 103 98-107 MMOL/L Carbon Dioxide Level 22 21-32 MMOL/L Anion Gap 13 5-14 MMOL/L Blood Urea Nitrogen 11 7-18 MG/DL Creatinine 1.19 0.60-1.30 MG/DL Estimat Glomerular Filtration Rate 73 BUN/Creatinine Ratio 9 Glucose Level 86 70-105 MG/DL Calcium Level 9.4 8.5-10.1 MG/DL Corrected Calcium 9.4 8.5-10.1 MG/DL Total Bilirubin 2.3 H 0.1-1.0 MG/DL Aspartate Amino Transf (AST/SGOT) 26 5-34 U/L Alanine Aminotransferase (ALT/SGPT) 33 0-55 U/L Alkaline Phosphatase 82 40-136 U/L Total Protein 7.1 6.4-8.2 GM/DL Albumin 4.0 3.2-4.5 GM/DL Triglycerides Level 60 <150 MG/DL Cholesterol Level 103 < 200 MG/DL LDL Cholesterol Direct 58 1-129 MG/DL VLDL Cholesterol 12 5-40 MG/DL HDL Cholesterol 39 L 40-60 MG/DL Physical Exam Physical Exam Vital Signs Vital Signs - First Documented 05/04/23 05/04/23 02:45 02:51 Temp 36.5 O2 Flow Rate 0.00 FiO2 21 Capillary Refill : Height, Weight, BMI Height: 5'5.00" Weight: 200lbs. oz. [id number]; 28.57 BMI Method:Stated General Appearance: No Apparent Distress, WD/WN Eyes: Bilateral Eye Normal Inspection, Bilateral Eye PERRL, Bilateral Eye EOMI HEENT: PERRL/EOMI, TMs Normal, Normal ENT Inspection, Pharynx Normal, Moist Mucous Membranes Neck: Full Range of Motion, Normal Inspection, Non Tender, Supple, Carotid Bruit Respiratory: Chest Non Tender, Normal Breath Sounds, No Accessory Muscle Use, No Respiratory Distress Cardiovascular: Regular Rate, Rhythm, No Edema, No JVD, Normal Peripheral Pulses, Diastolic Murmur, Gallop/S3 Gastrointestinal: Normal Bowel Sounds, No Organomegaly, No Pulsatile Mass, Non Tender, Soft Back: Normal Inspection, No CVA Tenderness, No Vertebral Tenderness Extremity: Normal Capillary Refill, Normal Inspection, Normal Range of Motion, Non Tender, No Calf Tenderness, No Pedal Edema Neurologic/Psychiatric: Alert, Oriented x3, No Motor/Sensory Deficits, Normal Mood/Affect Skin: Normal Color, Warm/Dry Lymphatic: No Adenopathy A/P-Cardiology Admission Diagnosis Acute CVA Coronary artery disease Congestive heart failure, chronic compensated left ventricular systolic dysfunction, ischemic cardiomyopathy Hypertension Hyperlipidemia Assessment/Plan Vertigo, acute CVA Followed and managed by primary care physician. Congestive heart failure, chronic compensated dilated cardiomyopathy, ischemic in nature, ejection fraction 10 to 15% Maintained on Coreg and Entresto as an outpatient. I will restart medication and evaluate tolerance and response Repeat 2D echo Nonsustained ventricular tachycardia, had short episode of nonsustained ventricular tachycardia, asymptomatic Restart beta-blockers. Continue to maximize medical therapy Patient had a LifeVest but he was not compliant with it and was not wearing it and it was canceled Coronary artery disease, [facility] in July 2020 with long stent in the mid LAD using CARMINA 2.25 x38. Had NSTMI on Nov 16 after not taking his medications. Had recurrent NSTEMI November 23, 2020. Cardiac catheterization done shwoed severe multi-vessel coronary artery disease including severe stenosis at the ostial diagonal artery that is a hairline artery, subtotal occlusion of the OM branch that is a hairline artery, not amendable to intervention. Patent stent in the mid to distal LAD, prx to the stent there is area of mod to severe stenosis, nonobstructive lesion, at the far distal portion of the LAD there is an area of severe stenosis, very small artery. Tortuous RCA with 2 mod to severe lesions, nonobstructive. EF 10-15%. Conservative management was recommended d/t the fact the the patient is noncompliant. The lesion prox to the stent in the LAD in nonobstructive lesion at this point, putting an overlapped stent increased the risk of stent thrombosis in case patient cont to be noncompliant. Patient was referred to Dr. Eyad Parks who explained to the patient that he is at a high risk and was unable to do any intervention for him at [place] and recommended evaluation at and follow-up at but patient having difficulty in going to [place]. We will continue with aggressive medical management and he was educated on compliance Sinus tachycardia, restart Coreg and monitor Hypertension, restart home medication and monitor Hyperlipidemia, evaluate lipid profile and metabolic profile Methamphetamine use, has been avoiding the use of drugs at least for the past 6 months. Rajat use Medical noncompliance. YVETTE ISSA MD May 04, 2023 12:54
[2023-05-04] MEDS ORDERED: LISI2.5T13 PO (15:04)
[2023-05-04] MEDS ORDERED: MTP25TSR PO (15:04)
[2023-05-04] MEDS ORDERED: FURO40TA4 PO (15:04)
[2023-05-04] MEDS ORDERED: NITR0.4T42 PO (15:04)
[2023-05-04] MEDS ORDERED: CLOP75TA28 PO (15:04)
[2023-05-04] MEDS ORDERED: POTA-179 PO (15:04)
--- NOTE | 2023-05-04 15:20 | Diagnostic Imaging Report ---
PROCEDURE: MR imaging of the brain without contrast. TECHNIQUE: Multiplanar, multisequence MR imaging of the brain was performed without contrast. INDICATION: Left-sided weakness. COMPARISON: CT of the head on 05/04/2023. No acute infarct. No acute or chronic hemorrhage. Right EVD tract changes. Encephalomalacia within the left cerebellum and left temporal lobe. Scattered T2/flair hyperintense lesions within the periventricular and subcortical white matter. Mild generalized prominence of ventricles and cortical sulci. Expected flow voids are maintained. The ventricles are normal. The paranasal sinuses and mastoids are clear. The globes and orbits are normal. Mastoids are normal. IMPRESSION: No acute infarct, hemorrhage, or hydrocephalus. Encephalomalacia within the left temporal lobe, and left cerebellum. Moderate chronic small vessel ischemic disease. Dictated by: Dictated on workstation # [id number]
[2023-05-04] MEDS: carvediloL 6.25 MG TABLET PO SCH (21:30)
[2023-05-04] MEDS: SACUBITRIL/VALSARTAN 24/26 MG (ENTRESTO) TABLET PO SCH (21:30)
[2023-05-05] VITALS (8 sets, daily range): BP systolic 88–116; BP diastolic 70–91
[2023-05-05 04:59] LABS: BASOPHILS % (AUTO) 1 % (0-10); EOSINOPHILS # (AUTO) 0.1 10^3/uL (0.0-0.3); EOSINOPHILS % (AUTO) 2 % (0-10); HEMATOCRIT 39 % (40-54); HEMOGLOBIN 12.6 g/dL (13.3-17.7); LYMPHOCYTES # (AUTO) 2.4 10^3/uL (1.0-4.0); LYMPHOCYTES % (AUTO) 41 % (12-44); MEAN CORPUSCULAR HEMOGLOBIN 24 pg (25-34); MEAN CORPUSCULAR HGB CONC 33 g/dL (32-36); MEAN CORPUSCULAR VOLUME 74 fL (80-99); MEAN PLATELET VOLUME 10.1 fL (9.0-12.2); MONOCYTES # (AUTO) 0.4 10^3/uL (0.0-1.0); MONOCYTES % (AUTO) 7 % (0-12); NEUTROPHILS # (AUTO) 2.9 10^3/uL (1.8-7.8); NEUTROPHILS % (AUTO) 50 % (42-75); PLATELET COUNT 261 10^3/uL (130-400); WHITE BLOOD COUNT 5.9 10^3/uL (4.3-11.0)
[2023-05-05 05:09] LABS: ALBUMIN 3.6 GM/DL (3.2-4.5)
[2023-05-05 05:10] LABS: POTASSIUM 3.4 MMOL/L (3.6-5.0)
[2023-05-05 05:11] LABS: CALCIUM 8.6 MG/DL (8.5-10.1)
[2023-05-05 05:12] LABS: TOTAL PROTEIN 6.9 GM/DL (6.4-8.2)
[2023-05-05 05:14] LABS: BILIRUBIN,TOTAL 2.3 MG/DL (0.1-1.0)
[2023-05-05 05:16] LABS: CREATININE SERUM 1.27 MG/DL (0.60-1.30)
[2023-05-05] MEDS ORDERED: POTASSIUM CHLORIDE 20 MEQ TABLET PO ONE (08:00)
[2023-05-05 08:37] LABS: ABSOLUTE RETIC # 74 10e9/uL (24-90); BASOPHILS % (AUTO) 0 % (0-10); EOSINOPHILS # (AUTO) 0.1 10^3/uL (0.0-0.3); EOSINOPHILS % (AUTO) 1 % (0-10); HEMATOCRIT 39 % (40-54); HEMOGLOBIN 12.6 g/dL (13.3-17.7); LYMPHOCYTES # (AUTO) 2.4 10^3/uL (1.0-4.0); LYMPHOCYTES % (AUTO) 41 % (12-44); MEAN CORPUSCULAR HEMOGLOBIN 24 pg (25-34); MEAN CORPUSCULAR HGB CONC 32 g/dL (32-36); MEAN CORPUSCULAR VOLUME 74 fL (80-99); MEAN PLATELET VOLUME 10.2 fL (9.0-12.2); MONOCYTES # (AUTO) 0.5 10^3/uL (0.0-1.0); MONOCYTES % (AUTO) 8 % (0-12); NEUTROPHILS # (AUTO) 2.9 10^3/uL (1.8-7.8); NEUTROPHILS % (AUTO) 50 % (42-75); PLATELET COUNT 241 10^3/uL (130-400); RETICULOCYTE % 1.41 % (0.50-2.40)
[2023-05-05] MEDS: APIXABAN 5 MG TABLET PO SCH ×2 (08:42→20:56)
[2023-05-05] MEDS: SACUBITRIL/VALSARTAN 24/26 MG (ENTRESTO) TABLET PO SCH ×2 (08:42→20:56)
[2023-05-05] MEDS: ASPIRIN 325 MG TABLET PO SCH (08:43)
[2023-05-05] MEDS: PANTOPRAZOLE 40 MG (PROTONIX) TAB PO SCH (08:43)
[2023-05-05] MEDS: carvediloL 6.25 MG TABLET PO SCH ×2 (08:43→20:56)
[2023-05-05] MEDS: FUROSEMIDE 40 MG TABLET PO SCH (08:44)
--- NOTE | 2023-05-05 08:59 | Diagnostic Imaging Report ---
PROCEDURE: US Hepatic (Liver). TECHNIQUE: Multiple real-time grayscale images were obtained over the right upper quadrant in various projections. INDICATION: Elevated bilirubin. Liver is normal in size at 13 cm. The portal vein is patent and shows normal direction of flow. No liver mass is detected. Gallbladder is without stones or sludge. There is no wall thickening identified. No definite biliary duct dilatation is seen although the extrahepatic bile duct is obscured by bowel gas. In addition, the pancreas, aorta, IVC and right kidney are obscured by bowel gas. There is no definite ascites. IMPRESSION: Limited study due to overlying bowel gas. No significant abnormality of the liver or gallbladder is identified. Dictated by: Dictated on workstation # [id number]
[2023-05-05 09:12] LABS: BAND NEUTROPHILS 0 %; BASOPHILS % (MANUAL) 0 %; EOSINOPHILS % (MANUAL) 0 %; HYPOCHROMASIA SLIGHT; LYMPHOCYTES % (MANUAL) 35 %; MONOCYTES % (MANUAL) 7 %; NEUTROPHILS % (MANUAL) 58 %; POLYCHROMASIA SLIGHT
[2023-05-05 09:13] LABS: ANISOCYTOSIS SLIGHT; TARGET CELLS SLIGHT
--- NOTE | 2023-05-05 10:29 | Cardiology Progress Note ---
Subjective Date Seen by Provider: May 05, 2023 Time Seen by Provider: 08:20 Subjective/Events-last exam Patient is sitting up in bed, complaining of fatigue. Denies any chest pain or increased dyspnea. Objective-Cardiology Exam Last Set of Vital Signs Vital Signs 05/04/23 05/05/23 02:51 15:53 Temp 35.9 Pulse 92 Resp 17 B/P (MAP) 102/82 (89) Pulse Ox 97 O2 Delivery Room Air O2 Flow Rate 0.00 FiO2 21 I&O Intake and Output 05/05/23 00:00 Intake Total 750 ml Output Total 275 ml Balance 475 ml Intake Oral 750 ml Output Urine Total 275 ml Daily Weight Change No General: Alert, Oriented X3 HEENT: Atraumatic, PERRLA Lungs: Clear to Auscultation Heart: Regular Rate, Normal S1, Normal S2 Abdomen: Normal Bowel Sounds, Soft Extremities: No Clubbing, No Cyanosis Skin: No Rashes Neuro: Cranial Nerves 3-12 NL Psych/Mental Status: Mental Status NL, Mood NL Results Lab Laboratory Tests 05/05/23 04:31 A/P-Cardiology Admission Diagnosis Acute CVA Coronary artery disease Congestive heart failure, chronic compensated left ventricular systolic dysfunction, ischemic cardiomyopathy Hypertension Hyperlipidemia Assessment/Plan Vertigo, stroke like symptoms. CT and MRI negative. NO acute CVA Followed and managed by primary care physician. Congestive heart failure, chronic compensated dilated cardiomyopathy, ischemic in nature, ejection fraction 10 to 15% Maintained on Coreg and Entresto as an outpatient. Medication restarted, will continue to evaluate tolerance and response Repeat 2D echo done 05/04/23 showing EF 25-30%, moderate to severe TR, PA 70- 75mmHg. Nonsustained ventricular tachycardia, had short episode of nonsustained ventricular tachycardia, asymptomatic Restart beta-blockers. Continue to maximize medical therapy Patient had a LifeVest but he was not compliant with it and was not wearing it and it was canceled Coronary artery disease, [facility] in July 2020 with long stent in the mid LAD using CARMINA 2.25 x38. Had NSTMI on Nov 16 after not taking his medications. Had recurrent NSTEMI November 23, 2020. Cardiac catheterization done shwoed severe multi-vessel coronary artery disease including severe stenosis at the ostial diagonal artery that is a hairline artery, subtotal occlusion of the OM branch that is a hairline artery, not amendable to intervention. Patent stent in the mid to distal LAD, prx to the stent there is area of mod to severe stenosis, nonobstructive lesion, at the far distal portion of the LAD there is an area of severe stenosis, very small artery. Tortuous RCA with 2 mod to severe lesions, nonobstructive. EF 10-15%. Conservative management was recommended d/t the fact the the patient is noncompliant. The lesion prox to the stent in the LAD in nonobstructive lesion at this point, putting an overlapped stent increased the risk of stent thrombosis in case patient cont to be noncompliant. Patient was referred to Dr. Eyad Parks who explained to the patient that he is at a high risk and was unable to do any intervention for him at [place] and recommended evaluation at and follow-up at but patient having difficulty in going to [place]. We will continue with aggressive medical management and he was educated on compliance Sinus tachycardia, improved after restarting Coreg Hypertension, controlled, continue to monitor. Hyperlipidemia, controlled, maintained on Lipitor 80mg Methamphetamine use, has been avoiding the use of drugs at least for the past 6 months. [facility] use Medical noncompliance. Patient was seen and evaluated with Mariam, examination performed, management plan was discussed, agree with the current scribed note, I made few changes to the note using Italic font Patient was seen at bedside laying down in bed, still complaining of vertigo Work-up so far has been negative Continue on current medical treatment, monitor tolerance and response. Cannot tolerate a higher dose of Coreg. Added Jardiance to his current medication and monitor tolerance and response Okay for discharge and follow-up as an outpatient Supervisory-Addendum Brief Supervisory Addendum Participated in pt care: history, MDM, physical Personally performed: exam, history, MDM Care discussed with: ARIAN Results interpretation: Verified all documentation MARIAM ZIMMERMAN May 05, 2023 10:29 YVETTE ISSA MD May 05, 2023 16:26
[2023-05-05] MEDS ORDERED: SACU1TAB2 PO (12:39)
[2023-05-05] MEDS ORDERED: ATOR80TA76 PO (12:39)
--- NOTE | 2023-05-05 14:51 | Physical Therapy Daily Note ---
PT Daily Note-Current Subjective Pt confused upon therapist entering the room. He had been sleeping but was a poor historian as to what was going on with his medical condition and what his plans were post discharge. Agrees to get out of bed and take a walk. Pain Section J - Health Conditions 1. Rarely or not at all 2. Occasionally 3. Frequently 4. Almost constantly 8. Unable to answer Pain Effect on Sleep: 1 Pain Interference with Therapy: 1 Pain Interference w/Day-to-Day: 1 Mental Status Patient Orientation: Person, Confused Transfers SCALE: Activities may be completed with or without assistive devices. 4-Ukqzwmbbrk-mlkqcxm completes the activity by him/herself with no assistance from a helper. 5-Set-up or Clean-up Assistance-helper sets up or cleans up; patient completes activity. [place] assists only prior to or following the activity. 4-Supervision or Touching Assistance-helper provides verbal cues and/or touching/steadying and/or contact guard assistance as patient completes activity. Assistance may be provided throughout the activity or intermittently. 3-Partial/Moderate Assistance-helper does LESS THAN HALF the effort. [place] lifts, holds or supports trunk or limbs, but provides less than half the effort. 2-Substantial/Maximal Assistance-helper does MORE THAN HALF the effort. [place] lifts or holds trunk or limbs and provides more than half the effort. 7-Ttjkekgbv-bylovh does ALL the effort. Patient does none of the effort to comp lete the activity. Or, the assistance of 2 or more helpers is required for the patient to complete the activity. If activity was not attempted, code reason: 7-Patient Refused. 9-Not Applicable-not attempted and the patient did not perform the activity before the current illness, exacerbation or injury. 10-Not Attempted due to Environmental Limitations-(lack of equipment, weather restraints, etc.). 88-Not Attempted due to Medical Conditions or Safety Concerns. Roll Left & Right (QC): 6 Sit to Lying (QC): 6 Lying to Sitting/Side of Bed(Q: 6 Sit to Stand (QC): 5 Chair/Tkf-rz-Swttk Xfer(QC): 5 Able to get in/out of bed and come to standing. Pt unsteady upon initial standing, demonstrating clinical data coordinator/anterior sway. Gait Training Walk 150 ft (QC): 4 Gait Assistive Device: Cane Single Point Walked 200ft with a single point cane in the right UE. Pt had 5 to 6 instances of forward balance loss due to not raising his left foot high enough to clear the ground during swing phase. He required therapist assist on 2 of these stumbles in order to regain balance. Assessment Current Status: Fair Progress Pt is currently at an elevated risk for falls on level surfaces. He would not be safe for ambulation on uneven surfaces and in a community environment. He was very short of air post treatment despite oxygen sat levels in the mid 90's. Pt will benefit from continued therapy to work on strength, balance, and endurance. 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 Goals Hotel [employer] Cleaning Supervisor Goals 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 Goals Time Frame: May 22, 2023 Roll Left & Right (QC): 6 Sit to Lying (QC): 6 Lying-Sitting on Side/Bed(QC): 6 Sit to Stand (QC): 6 Chair/Arv-iz-Xuycf Xfer(QC): 6 Toilet Transfer (QC): 6 Walk 10 feet (QC): 6 Walk 50ft with 2 Turns (QC): 6 Walk 150 ft (QC): 6 PT Plan Treatment/Plan Treatment Plan: Continue Plan of Care Treatment Plan: Bed Mobility, Education, Functional Activity Yohana, Functional Strength, Gait, Safety, Therapeutic Exercise, Transfers Treatment Duration: May 22, 2023 Frequency: 5 times per week Estimated Hrs Per Day: .25 hour per day Time Time In: 1430 Time Out: 1450 DATE: May 05, 2023 Total Billed Treatment Time: 20 Total Billed Treatment visit, gait 20 min SANCHEZ JENNINGS PT May 05, 2023 14:51
--- NOTE | 2023-05-05 15:10 | Progress Note ---
Subjective Subjective/Events-last exam Patient sleepy this morning, states he "just can't sit up", can't clarify why or if he is dizzy lying down. However, when asked to try sitting up, he sat up independently and had no balance issues, and reported no dizziness, stated "I guess I can do it today". Objective Exam Last Set of Vital Signs Vital Signs Date Time Temp Pulse Resp B/P (MAP) Pulse Ox O2 Delivery O2 Flow Rate FiO2 05/05/23 12:30 92 05/05/23 11:55 36.1 24 110/91 (97) 97 Room Air 05/04/23 02:51 0.00 21 Capillary Refill : I&O Intake and Output 05/04/23 23:59 Intake Total 750 ml Output Total 275 ml Balance 475 ml Intake Oral 750 ml Output Urine Total 275 ml Daily Weight Change No General: Alert, No Acute Distress Lungs: Normal Air Movement Heart: Regular Rate Abdomen: Normal Bowel Sounds, Soft Neuro: Other (difficut to get clear answers to questions, often have to rephrase questions or repeat for clarification; no nystagmus noted today, fixed gaze testing normal) Psych/Mental Status: Mood NL Results/Procedures Lab Laboratory Tests 05/05/23 04:31: White Blood Count 6.0, Red Blood Count 5.27, Hemoglobin 12.6L, Hematocrit 39L, Mean Corpuscular Volume 74L, Mean Corpuscular Hemoglobin 24L, Mean Corpuscular Hemoglobin Concent 32, Red Cell Distribution Width 16.3H, Platelet Count 241, Mean Platelet Volume 10.2, Immature Granulocyte % (Auto) 0, Neutrophils (%) (Auto) 50, Lymphocytes (%) (Auto) 41, Monocytes (%) (Auto) 8, Eosinophils (%) (Auto) 1, Basophils (%) (Auto) 0, Neutrophils # (Auto) 2.9, Lymphocytes # (Auto) 2.4, Monocytes # (Auto) 0.5, Eosinophils # (Auto) 0.1, Basophils # (Auto) 0.0, Immature Granulocyte # (Auto) 0.0, Neutrophils % (Manual) 58, Lymphocytes % (Manual) 35, Monocytes % (Manual) 7, Eosinophils % (Manual) 0, Basophils % (Manual) 0, Band Neutrophils 0, Percent Immature Platelet Fraction 2.7, Polych romasia SLIGHT, Hypochromasia SLIGHT, Anisocytosis SLIGHT, Target Cells SLIGHT, Absolute Reticulocyte Count 74, Percent Reticulocyte Count 1.41, Sodium Level 138, Potassium Level 3.4L, Chloride Level 106, Carbon Dioxide Level 22, Anion Gap 10, Blood Urea Nitrogen 14, Creatinine 1.27, Estimat Glomerular Filtration Rate 68, BUN/Creatinine Ratio 11, Glucose Level 97, Calcium Level 8.6, Corrected Calcium 8.9, Total Bilirubin 2.3H, Direct Bilirubin 0.7H, Aspartate Amino Transf (AST/SGOT) 24, Alanine Aminotransferase (ALT/SGPT) 27, Alkaline Phosphatase 79, Total Protein 6.9, Albumin 3.6 05/05/23 09:15: Radiology CTA head/neck 05/04/23: IMPRESSION: 1. No high-grade stenosis or occlusion is seen in the arteries of the head and neck. 2. 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 3. Hypodensities in the left temporal lobe and left cerebellum are new since 2018 but appear to be chronic. There are findings of chronic microvascular disease. If there is persistent concern for infarct, recommend MRI to evaluate. Assessment/Plan Assessment/Plan (1) Vertigo Status: Acute Assessment & Plan: Per outside hospital reported to have findings of acute CVA, however CTA head does not show acute findings. Echo pending, Cardiology consulted. PT, OT. MRI ordered. 05/05 MRI without acute findings, redemonstrated encephalomalacia. Still having difficulty with ambulation with PT today. (2) HTN (hypertension) Status: Chronic Assessment & Plan: Resume home meds (3) HLD (hyperlipidemia) Status: Chronic Assessment & Plan: Resume home meds (4) Ischemic cardiomyopathy Status: Acute Assessment & Plan: Resume home meds (5) HFrEF (heart failure with reduced ejection fraction) Status: Acute Assessment & Plan: Severe with EF 10% last echo. Cardiology consulted, appreciate recommendations. Resume home medications, echo pending. 05/05 Echo with EF 25-30%, appreciate Cardiology recommendations (6) DVT prophylaxis Status: Acute Assessment & Plan: Home LAURA Noriega MD May 05, 2023 15:10
[2023-05-05 21:20] LABS: HEPATITIS C ANTIBODY C Non-Reactive (Non-Reactive)
[2023-05-06] VITALS: BP 90/66
[2023-05-06 03:18] VITALS: BP 102/66
[2023-05-06 04:00] VITALS: BP 113/79
[2023-05-06 07:56] LABS: HEMATOCRIT 43 % (40-54); HEMOGLOBIN 14.1 g/dL (13.3-17.7); MEAN CORPUSCULAR HEMOGLOBIN 24 pg (25-34); MEAN CORPUSCULAR HGB CONC 33 g/dL (32-36); MEAN CORPUSCULAR VOLUME 73 fL (80-99); MEAN PLATELET VOLUME 9.7 fL (9.0-12.2); PLATELET COUNT 269 10^3/uL (130-400); WHITE BLOOD COUNT 5.8 10^3/uL (4.3-11.0)
[2023-05-06 08:00] VITALS: BP 108/84
--- NOTE | 2023-05-06 08:16 | Cardiology Progress Note ---
Subjective Date Seen by Provider: May 06, 2023 Time Seen by Provider: 08:15 Subjective/Events-last exam Patient was seen at bedside, laying down in bed, complaining of mild dyspnea Review of Systems General: No Chills, No Night Sweats, No Fatigue, No Malaise, No Appetite, No Other HEENT: No Head Aches, No Visual Changes, No Eye Pain, No Ear Pain, No Dysphasia, No Sinus Congestion, No Post Nasal Drip, No Sore Throat, No Other Pulmonary: Dyspnea; No Cough, No Pleuritic Chest Pain, No Other Cardiovascular: No: Chest Pain, Palpitations, Orthopnea, Paroxysmal Noc. Dyspnea, Edema, Lt Headedness, Other Objective-Cardiology Exam Last Set of Vital Signs Vital Signs 05/04/23 05/06/23 05/06/23 05/06/23 02:51 03:18 04:00 07:12 Temp 36.3 Pulse 64 Resp 15 B/P (MAP) 113/79 (90) Pulse Ox 96 O2 Delivery Room Air O2 Flow Rate 0.00 FiO2 21 I&O Intake and Output 05/06/23 00:00 Intake Total 850 ml Output Total 1325 ml Balance -475 ml Intake Oral 850 ml Output Urine Total 1325 ml General: Alert, Oriented X3, Cooperative, No Acute Distress HEENT: Atraumatic, PERRLA Neck: Supple Lungs: Normal Air Movement, Other (Bilateral rhonchi) Heart: Regular Rate, Normal S1, Normal S2 Abdomen: Normal Bowel Sounds, Soft Extremities: No Clubbing, No Cyanosis Skin: No Rashes Neuro: Normal Speech, Other (difficut to get clear answers to questions, often have to rephrase questions or repeat for clarification; no nystagmus noted today, fixed gaze testing normal) Psych/Mental Status: Mental Status NL, Mood NL Results Lab Laboratory Tests 05/06/23 07:44 A/P-Cardiology Admission Diagnosis Acute CVA Coronary artery disease Congestive heart failure, chronic compensated left ventricular systolic dysfunction, ischemic cardiomyopathy Hypertension Hyperlipidemia Assessment/Plan Vertigo, stroke like symptoms. CT and MRI negative. NO acute CVA Followed and managed by primary care physician. Congestive heart failure, chronic compensated dilated cardiomyopathy, ischemic in nature, ejection fraction 10 to 15% Maintained on Coreg and Entresto as an outpatient. Medication restarted, will continue to evaluate tolerance and response Repeat 2D echo done 05/04/23 showing EF 25-30%, moderate to severe TR, PA 70- 75mmHg. Having mild dyspnea today, I will give Lasix IV x1 today Nonsustained ventricular tachycardia, had short episode of nonsustained ventricu lar tachycardia, asymptomatic Restart beta-blockers. Continue to maximize medical therapy Patient had a LifeVest but he was not compliant with it and was not wearing it and it was canceled Coronary artery disease, [facility] in July 2020 with long stent in the mid LAD using CARMINA 2.25 x38. Had NSTMI on Nov 16 after not taking his medications. Had recurrent NSTEMI November 23, 2020. Cardiac catheterization done shwoed severe multi-vessel coronary artery disease including severe stenosis at the ostial diagonal artery that is a hairline artery, subtotal occlusion of the OM branch that is a hairline artery, not amendable to intervention. Patent stent in the mid to distal LAD, prx to the stent there is area of mod to severe stenosis, nonobstructive lesion, at the far distal portion of the LAD there is an area of severe stenosis, very small artery. Tortuous RCA with 2 mod to severe lesions, nonobstructive. EF 10-15%. Conservative management was recommended d/t the fact the the patient is noncompliant. The lesion prox to the stent in the LAD in nonobstructive lesion at this point, putting an overlapped stent increased the risk of stent thrombosis in case patient cont to be noncompliant. Patient was referred to Dr. Eyad Parks who explained to the patient that he is at a high risk and was unable to do any intervention for him at [place] and recommended evaluation at and follow-up at but patient having difficulty in going to [place]. We will continue with aggressive medical management and he was educated on compliance Sinus tachycardia, improved after restarting Coreg Hypertension, controlled, continue to monitor. Hyperlipidemia, controlled, maintained on Lipitor 80mg Methamphetamine use, has been avoiding the use of drugs at least for the past 6 months. Rajat use Medical noncompliance. Okay for discharge and follow-up as an outpatient YVETTE ISSA MD May 06, 2023 08:16
[2023-05-06] MEDS ORDERED: FUROSEMIDE INJECTION 40 MG/4 ML VIAL IVP NR (08:30)
[2023-05-06] MEDS: ASPIRIN 325 MG TABLET PO SCH (09:00)
[2023-05-06] MEDS: APIXABAN 5 MG TABLET PO SCH (09:00)
[2023-05-06] MEDS: PANTOPRAZOLE 40 MG (PROTONIX) TAB PO SCH (09:00)
[2023-05-06] MEDS: carvediloL 6.25 MG TABLET PO SCH (09:00)
[2023-05-06] MEDS: SACUBITRIL/VALSARTAN 24/26 MG (ENTRESTO) TABLET PO SCH (09:00)
[2023-05-06] MEDS ORDERED: EMPAGLIFLOZIN 10 MG TABLET PO SCH (09:00)
[2023-05-06] MEDS: FUROSEMIDE 40 MG TABLET PO SCH (09:01)
--- NOTE | 2023-05-06 09:36 | Physical Therapy Daily Note ---
PT Daily Note-Current Subjective Patient agrees to PT. Pain Section J - Health Conditions 1. Rarely or not at all 2. Occasionally 3. Frequently 4. Almost constantly 8. Unable to answer Pain Effect on Sleep: 1 Pain Interference with Therapy: 1 Pain Interference w/Day-to-Day: 1 Transfers SCALE: Activities may be completed with or without assistive devices. 4-Rxaidembki-czbjjga completes the activity by him/herself with no assistance from a helper. 5-Set-up or Clean-up Assistance-helper sets up or cleans up; patient completes activity. [place] assists only prior to or following the activity. 4-Supervision or Touching Assistance-helper provides verbal cues and/or touching/steadying and/or contact guard assistance as patient completes activity. Assistance may be provided throughout the activity or intermittently. 3-Partial/Moderate Assistance-helper does LESS THAN HALF the effort. [place] lifts, holds or supports trunk or limbs, but provides less than half the effort. 2-Substantial/Maximal Assistance-helper does MORE THAN HALF the effort. [place] lifts or holds trunk or limbs and provides more than half the effort. 6-Zhwecujfn-wjqmin does ALL the effort. Patient does none of the effort to complete the activity. Or, the assistance of 2 or more helpers is required for the patient to complete the activity. If activity was not attempted, code reason: 7-Patient Refused. 9-Not Applicable-not attempted and the patient did not perform the activity before the current illness, exacerbation or injury. 10-Not Attempted due to Environmental Limitations-(lack of equipment, weather restraints, etc.). 88-Not Attempted due to Medical Conditions or Safety Concerns. Sit to Lying (QC): 6 Lying to Sitting/Side of Bed(Q: 6 Sit to Stand (QC): 4 Gait Training Distance: 300' Walk 10 feet (QC): 4 Walk 50 ft with 2 Turns(QC): 4 Walk 150 ft (QC): 4 Gait Assistive Device: FWW much improved gait sequence and balance with FWW use Assessment PT discussed with patient on using FWW at home. Patient agrees. Balance is Good with FWW use. SW notified need. PT Alf Goals Alf Goals PT [employer] Goals Time Frame: May 22, 2023 Roll Left & Right (QC): 6 Sit to Lying (QC): 6 Lying-Sitting on Side/Bed(QC): 6 Sit to Stand (QC): 6 Chair/Axu-ag-Hmrbg Xfer(QC): 6 Toilet Transfer (QC): 6 Walk 10 feet (QC): 6 Walk 50ft with 2 Turns (QC): 6 Walk 150 ft (QC): 6 PT Plan Treatment/Plan Treatment Plan: Continue Plan of Care Treatment Plan: Bed Mobility, Education, Functional Activity Yohana, Functional Strength, Gait, Safety, Therapeutic Exercise, Transfers Treatment Duration: May 22, 2023 Frequency: 5 times per week Estimated Hrs Per Day: .25 hour per day Time Time In: 900 Time Out: 910 DATE: May 06, 2023 Total Billed Treatment Time: 10 Total Billed Treatment 1 visit GT 10 min BONG ODOM PT May 06, 2023 09:36
[2023-05-06] MEDS ORDERED: EMPA10TA PO (11:07)
--- NOTE | 2023-05-06 11:08 | Discharge Summary ---
Discharge Summary Hospital Course Problems/Diagnosis: (1) Vertigo Status: Acute Assessment & Plan: Per outside hospital reported to have findings of acute CVA, however CTA head does not show acute findings. Echo pending, Cardiology consulted. PT, OT. MRI ordered. 05/05 MRI without acute findings, redemonstrated encephalomalacia. Still having difficulty with ambulation with PT today. 05/06 doing better with PT with walker, walker ordered for home use. (2) HTN (hypertension) Status: Chronic Assessment & Plan: Resume home meds (3) HLD (hyperlipidemia) Status: Chronic Assessment & Plan: Resume home meds (4) Ischemic cardiomyopathy Status: Acute Assessment & Plan: Resume home meds (5) HFrEF (heart failure with reduced ejection fraction) Status: Acute Assessment & Plan: Severe with EF 10% last echo. Cardiology consulted, appreciate recommendations. Resume home medications, echo pending. 05/05 Echo with EF 25-30%, appreciate Cardiology recommendations, meds adjusted. Hospital Course Date of Admission: May 04, 2023 at 02:08 Admission Diagnosis : Family Physician/Provider: [place] [place] Date of Discharge: 05/06/23 Discharge Diagnosis: See problem list Hospital Course: See problem list Labs and Pending Lab Test: Laboratory Tests 05/06/23 07:44: White Blood Count 5.8, Red Blood Count 5.92H, Hemoglobin 14.1, Hematocrit 43, Mean Corpuscular Volume 73L, Mean Corpuscular Hemoglobin 24L, Mean Corpuscular Hemoglobin Concent 33, Red Cell Distribution Width 16.9H, Platelet Count 269, Mean Platelet Volume 9.7 Home Meds Active Jardiance (Empagliflozin) 10 Mg Tablet 10 Mg PO DAILY Entresto 24 mg-26 mg Tablet (Sacubitril/Valsartan) 24 Mg-26 Mg Tablet 1 Tab PO BID Atorvastatin Calcium 80 Mg Tablet 80 Mg PO DAILY Reported Metoprolol Succinate 25 Mg Tab.er.24h 25 Mg PO DAILY Clopidogrel (Clopidogrel Bisulfate) 75 Mg Tablet 75 Mg PO DAILY Nitroglycerin 0.4 Mg Tab.subl 0.4 Mg PO UD PRN Lisinopril 2.5 Mg Tablet 2.5 Mg PO DAILY Potassium Chloride 20 Meq Tab.er.prt 20 Meq PO DAILY Furosemide 40 Mg Tablet 40 Mg PO DAILY Eliquis (Apixaban) 5 Mg Tablet 5 Mg PO BID Assessment/Pt DC Instructions Follow up with primary doctor within a week. Discharge Diet: Cardiac Diet Activity as Tolerated: Yes Discharge Physical Examination Allergies: Coded Allergies: No Known Drug Allergies (Unverified , 10/06/10) General Appearance: No Apparent Distress, WD/WN Respiratory: Lungs Clear, Normal Breath Sounds Cardiovascular: Regular Rate, Rhythm, No Edema, No Murmur Skin: Normal Color, Warm/Dry Neurologic/Psychiatric: Alert LAURA BRIONES MD May 06, 2023 11:08
[2023-05-06 11:50] VITALS: BP 113/93
== END 2023-05-06 13:15 | disposition home health service (06) ==
LOC: INTOOBSV 02:08 → UNDOADMOB 02:08 → CSD 02:08 → UNDODISOB 05-06 13:15
PROVIDERS: ADMIT Family Medicine; ATTEND Family Medicine
DX: R42 Dizziness and giddiness (principal); I11.0 Hypertensive heart disease with heart failure; E78.5 Hyperlipidemia, unspecified; I25.5 Ischemic cardiomyopathy; D50.9 Iron deficiency anemia, unspecified; I25.10 Atherosclerotic heart disease of native coronary artery without angina pectoris; I50.22 Chronic systolic (congestive) heart failure; I63.9 Cerebral infarction, unspecified; I42.0 Dilated cardiomyopathy; I07.1 Rheumatic tricuspid insufficiency; R00.0 Tachycardia, unspecified; F17.210 Nicotine dependence, cigarettes, uncomplicated; F15.90 Other stimulant use, unspecified, uncomplicated; Z91.199 Patient's noncompliance with other medical treatment and regimen due to unspecified reason; Z79.899 Other long term (current) drug therapy; Z28.310 Unvaccinated for COVID-19
CPT/HCPCS: 70496; 70498; 70551; 76705; 80053 ×2; 80061; 80074; 82248; 85007; 85025; 85027 ×3; 85045; 85055; 94664; 96374; 96375; 97116 ×2; 97162; C8929; G0378; G0379; 36415; 93306